=== PATIENT | male | born 1940 | race Caucasian/White ===

== ENCOUNTER 2017-12-24 06:01 | Inpatient (IN) | payer OTHER ==
[~2017-12-24 06:01] MED LIST: Acetaminophen 500 MG Tab PO ONE; Scopolamine 1.5 MG Transdermal Patch TOP SCH
[2017-12-24] MEDS ORDERED: Lactated Ringers 1,000 ML IV SCH ×2 (06:30→10:30)
[2017-12-24] MEDS ORDERED: Povidone-Iodine 10% Soln 118.25 ML Bottle ONE (06:46)
[2017-12-24] MEDS ORDERED: Gentamicin 40 MG/ML 2 ML Vial ONE (06:46)
[2017-12-24] MEDS ORDERED: fentaNYL 100 MCG/2 ML SDV ONE (07:23)
[2017-12-24] MEDS ORDERED: Midazolam 1 MG/ML 2 ML SDV ONE (07:23)
[2017-12-24] MEDS ORDERED: Bupivacaine 0.75%/D5W 2 ML Amp ONE (07:23)
[2017-12-24] MEDS ORDERED: Propofol 200 MG/20 ML SDV ONE ×4 (07:23→10:04)
[2017-12-24] MEDS ORDERED: ceFAZolin 2 GM in Premix Bag 1 BAG IV ONE (07:30)
[2017-12-24] MEDS ORDERED: Tranexamic Acid 3,000 MG, Sodium Chloride 0.9% 100 ML TOP SCH ×2 (07:45)
[2017-12-24] MEDS ORDERED: Ropivacaine 49.25 ML, Ketorolac 30 MG, EPINEPHrine 0.5 MG, cloNIDine 80 MCG, Sodium Chl... INJECT ONE ×5 (07:45)
[2017-12-24] MEDS ORDERED: Lactated Ringers 1,000 ML ONE (08:58)
[2017-12-24] MEDS: [UNRECOGNIZED DRUG - OTHER] INJECT ONE ×8 (09:03→09:05)
[2017-12-24] MEDS: ROPIVACAINE INJECT ONE ×8 (09:03→09:05)
[2017-12-24] MEDS: EPINEPHRINE INJECT ONE ×8 (09:03→09:05)
[2017-12-24] MEDS: CLONIDINE INJECT ONE ×8 (09:03→09:05)
[2017-12-24] MEDS ORDERED: Sennosides 8.6 MG Tab PO PRN (10:17)
[2017-12-24] MEDS ORDERED: Naloxone 0.4 MG/ML SDV IVPUSH PRN (10:17)
[2017-12-24] MEDS ORDERED: diphenhydrAMINE 50 MG/ML SDV IVPUSH PRN (10:17)
[2017-12-24] MEDS ORDERED: Morphine 2 MG/ML Syringe IVPUSH PRN (10:17)
[2017-12-24] MEDS ORDERED: Magnesium Hydroxide 400 MG/5 ML Susp 30 ML Cup PO PRN (10:17)
[2017-12-24] MEDS ORDERED: Zolpidem 5 MG Tab PO PRN (10:17)
[2017-12-24] MEDS ORDERED: Aluminum Hydroxide/Magnesium Hydroxide/Simethicone Susp 30 ML Cup PO PRN (10:17)
[2017-12-24] MEDS ORDERED: Ondansetron 4 MG/2 ML SDV IVPUSH PRN (10:17)
[2017-12-24] MEDS ORDERED: Bisacodyl 5 MG Tab PO PRN (10:17)
[2017-12-24] MEDS ORDERED: Docusate Sodium 100 MG Cap PO PRN (10:17)
[2017-12-24] MEDS ORDERED: Triamcinolone Acetonide 0.1% Crm 15 GM Tube TOP PRN (10:25)
[2017-12-24] MEDS ORDERED: Lactulose Soln 10 GM/15 ML 15 ML UD Cup PO PRN (10:25)
[2017-12-24] MEDS ORDERED: Allopurinol 100 MG Tab PO SCH (10:30)
[2017-12-24] MEDS ORDERED: fentaNYL 100 MCG/2 ML SDV IVPUSH ONE (10:58)
[2017-12-24] MEDS ORDERED: hydrOXYzine HCl 100 MG/2 ML SDV IM ONE (10:59)
--- NOTE | 2017-12-24 11:09 | CR ---
Knee 1V or 2V Rt CLINICAL HISTORY: Status post total knee arthroplasty FINDINGS: Patient is status post recent 3 component total knee arthroplasty. Components appear well s eated. There is intra-articular and subcutaneous air and fluid Impression: Status post recent total knee arthroplasty
[2017-12-24] MEDS: oxyCODONE 5 MG Tab PO PRN ×2 (13:35→18:15)
[2017-12-24] MEDS ORDERED: PROTEASE PO SCH (14:00)
[2017-12-24] MEDS ORDERED: AMYLASE PO SCH (14:00)
[2017-12-24] MEDS ORDERED: LIPASE PO SCH (14:00)
--- NOTE | 2017-12-24 14:35 | OR ---
DATE OF PROCEDURE: 12/24/2017 PREOPERATIVE DIAGNOSIS: Right knee primary osteoarthritis. POSTOPERATIVE DIAGNOSIS: Right knee primary osteoarthritis. PROCEDURE PERFORMED: Right knee total knee arthroplasty. ANESTHESIA: Spinal plus conscious sedation. FLUIDS: Lactated Ringer solution. ESTIMATED BLOOD LOSS: 150 mL. COMPLICATIONS: None. SPECIMEN: None. DISCHARGE DISPOSITION: Stable to PACU. INSTRUMENTATION: DePuy Attune size 8 cemented femur, size 8 cemented tibial baseplate, 41 mm polyethylene patella, and size 8 5-mm polyethylene tibial insert. INDICATION FOR THE PROCEDURE: The patient was seen preoperatively in the clinic. He had failed nonoperative treatment. Preoperative imaging confirmed the above-mentioned diagnosis. Risks and benefits of the procedure were explained to the patient. Informed consent was obtained. DESCRIPTION OF PROCEDURE: The patient was seen preoperatively by myself and the Anesthesia staff in the preoperative holding area, where the operative site was marked. He was brought to the operative suite by Anesthesia staff, where spinal sedation plus conscious sedation was administered. All extremities were found to be well padded. A sterile Enamorado catheter was placed. A well-padded tourniquet was placed on the right thigh. The right lower extremity was prepped and draped in a sterile manner. Time-out was called identifying the correct patient, the correct procedure, the correct site, and that antibiotics had been begun within appropriate period of time. The right lower extremity was exsanguinated. Tourniquet was raised to 300 mmHg and let down during cementing at 61 minutes. A midline incision was made 4.5 fingerbreadths proximal to the patella, down to the level of the tibial tubercle. A medial parapatellar arthrotomy was then made. Bleeding was controlled with Bovie electrocautery. The infrapatellar fat pad was removed with the Bovie. Full synovectomy was performed with the Bovie. The proximal medial tibia was exposed. The anterior portion of the medial and lateral meniscus were removed as well as the anterior cruciate ligament. The patella was everted using a towel clamp and then the knee was flexed. Two cuts were then made freehand on the patella, and then the knee were extended. A 41 trial was then drilled in place. We then flexed the knee and reamed the distal femur and then inserted an intramedullary guide. I pinned the guide in place, removed the intramedullary portion of the guide, and then made my distal femoral cut. We then removed the cutting guide and then hyperflexed the knee and used a posterior condylar guide which measured an 8. I drilled 2 pins in and then placed my chamfer block and then protecting the collaterals with sharp Homans, made my anterior-posterior chamfer cuts. I then removed my cutting block and pins and removed any extra bone with osteotomes. I then spent quite a bit of time removing the remainder of the menisci medially and laterally that I could get to and then anteriorized the tibia using a blunt Hohmann. Then, using an extramedullary tibial guide in line with the tibial spine down to the second metatarsal, pinned this in place and made my proximal tibial cut while protecting the collaterals with sharp Homans. I then removed my proximal tibial cut and then did a little bit of clean-up with a saw. I then placed a baseplate, then reamed and tamped. Just prior to that, I did use a laminar blacktop spreader medially and laterally and then removed posterior condylar osteophytes with a curved osteotome and the remainder of the menisci. After I placed the tibial baseplate, I inserted the femoral trial and then placed a size 8 5- mm polyethylene trial. This was a little bit tight, so I removed all of my trial components and then cut another 2 mm off the tibia and then reinserted all my components. This provided excellent stability throughout range of motion. We then removed all of our trial components and then copiously irrigated with saline. I then cemented my final components in place with a size 8 5-mm polyethylene trial in place and then let the cement dry in extension and slight internal rotation. After the cement dried, we then removed the polyethylene base trial from the tibial baseplate and removed cement and irrigated with saline. After removing the extra cement, I did insert a final size 8 5-mm polyethylene tibial baseplate insert, and then this provided excellent range of motion and stability. I then irrigated again and then closed my parapatellar arthrotomy with two #5 Ethibonds and two #1 STRATAFIX. I then closed the subcutaneous layer with a #2 STRATAFIX, followed by skin tristian, followed by Betadine-soaked Adaptic sponges and an Joby wrap. The patient was then transferred to his hospital bed and taken to the PACU in a stable condition. Dheeraj John DO /[id number]
[2017-12-24] MEDS: Amylase/Lipase/Protease 12,000 Unit Cap.CR PO SCH ×2 (14:59→21:39)
--- NOTE | 2017-12-24 15:49 | PCM.PN ---
- General Info Date of Service: 12/24/17 Functional Status: Reports: Pain Controlled, Tolerating Diet, Incentive Spirometry - Review of Systems General: Reports: No Symptoms HEENT: Reports: No Symptoms Pulmonary: Reports: No Symptoms Cardiovascular: Reports: No Symptoms Gastrointestinal: Reports: No Symptoms Genitourinary: Reports: No Symptoms Musculoskeletal: Reports: Joint Pain, Joint Swelling Skin: Reports: No Symptoms Neurological: Reports: No Symptoms Psychiatric: Reports: No Symptoms - Patient Data Vitals - Most Recent: Last Vital Signs Temp 99.0 F 12/24/17 14:33 Pulse 50 L 12/24/17 14:33 Resp 16 12/24/17 14:33 BP 124/40 L 12/24/17 14:33 Pulse Ox 100 12/24/17 14:33 Weight - Most Recent: 235 lb I&O - Last 24 Hours: Intake & Output 12/24/17 12/24/17 12/24/17 06:59 14:59 22:59 Output Total 950 Balance -950 Lab Results Last 24 Hours: Laboratory Results - last 24 hr 12/24/17 12/24/17 Range/Units 06:00 07:20 PT 12.1 H (9.5-12.0) sec INR 1.13 (0.80-1.20) Blood Type O POSITIVE Gel Antibody Screen Negative Med Orders - Current: Current Medications Al Hydroxide/Mg Hydroxide (Mag-Al Plus) 30 ml PO Q4H PRN PRN Reason: Constipation Allopurinol (Zyloprim) 100 mg PO ASDIRECTED [facility] Amlodipine Besylate (Norvasc) 10 mg PO DAILY [facility] Lipase/Protease/Amylase (Creon Dr 12,000 Units) 2 cap PO TID [facility] Last Admin: 12/24/17 14:59 Dose: 2 cap Bisacodyl (Dulcolax) 10 mg PO DAILY PRN PRN Reason: Constipation Bumetanide (Bumex) 1 mg PO DAILY [facility] Diphenhydramine HCl (Benadryl) 25 mg IVPUSH Q4H PRN PRN Reason: Itching Docusate Sodium (Colace) 100 mg PO BID PRN PRN Reason: Constipation Enoxaparin Sodium (Lovenox) 40 mg SUBCUT DAILY [facility] Lactated Ringer's (Ringers, Lactated) 1,000 mls @ 100 mls/hr IV ASDIRECTED [facility] Insulin Detemir (Levemir) 25 unit SUBCUT BID [facility] Lactulose (Chronulac) 10 gm PO QID PRN PRN Reason: Gas Magnesium Hydroxide (Milk Of Magnesia) 30 ml PO BID PRN PRN Reason: Constipation Metoprolol Tartrate (Lopressor) 12.5 mg PO BID [facility] Morphine Sulfate (Morphine) 2 mg IVPUSH Q2H PRN PRN Reason: Pain Last Admin: 12/24/17 12:25 Dose: 2 mg Multi-Ingred Cream/Lotion/Oil/Oint (Kerodex 71 Crm) 60 gm TOP DAILY PRN PRN Reason: Inflammation Naloxone HCl (Narcan) 0.1 mg IVPUSH ONETIME PRN PRN Reason: Oversedation Ondansetron HCl (Zofran) 8 mg IVPUSH Q4H PRN PRN Reason: Nausea/Vomiting Oxycodone HCl (Oxycodone) 10 mg PO Q4H PRN PRN Reason: Pain Last Admin: 12/24/17 13:35 Dose: 10 mg Rifaximin (Xifaxan) 550 mg PO BID [facility] Scopolamine (Transderm-Scop) 1.5 mg TOP Q72H [facility] Stop: 12/26/17 05:00 Last Admin: 12/24/17 06:55 Dose: 1.5 mg Senna (Senna) 8.6 mg PO BID PRN PRN Reason: Constipation Sodium Chloride (Saline Flush) 10 ml FLUSH DAILY [facility] Spironolactone (Aldactone) 12.5 mg PO BID [facility] Tacrolimus (Prograf) 0.5 mg PO BID [facility] Torsemide (Demadex) 20 mg PO DAILY [facility] Tramadol HCl (Ultram) 100 mg PO Q6H PRN PRN Reason: Pain Triamcinolone Acetonide (Triamcinolone Acetonide 0.1% Crm) 0 gm TOP BID PRN PRN Reason: Rash Warfarin Sodium (Coumadin) 2 mg PO DAILY@1300 [facility] Zolpidem Tartrate (Ambien) 5 mg PO BEDTIME PRN PRN Reason: Sleep Discontinued Medications Acetaminophen (Tylenol Extra Strength) 1,000 mg PO ONETIME ONE Stop: 12/24/17 06:01 Last Admin: 12/24/17 06:55 Dose: 1,000 mg Bupivacaine HCl/Dextrose (Marcaine 0.75% Spinal) Confirm Administered Dose 2 ml .ROUTE .STK-MED ONE Stop: 12/24/17 07:24 Tranexamic Acid 3,000 mg/ (Sodium Chloride 100 ml) 0 mg TOP ASDIRECTED [facility] Stop: 12/24/17 07:46 Last Admin: 12/24/17 09:00 Dose: 100 bag Ropivacaine 49.25 ml/Epinephrine HCl 0.5 mg/Clonidine HCl 80 mcg/ Sodium Chloride 48.45 ml 0 ml INJECT ONETIME ONE Stop: 12/24/17 07:46 Last Admin: 12/24/17 09:05 Dose: 90 ml Fentanyl (Sublimaze) Confirm Administered Dose 100 mcg .ROUTE .STK-MED ONE Stop: 12/24/17 07:24 Fentanyl (Sublimaze) 50 mcg IVPUSH ONETIME ONE Stop: 12/24/17 10:59 Last Admin: 12/24/17 11:03 Dose: 50 mcg Gentamicin Sulfate (Gentamicin) Confirm Administered Dose 240 mg .ROUTE .STK- MED ONE Stop: 12/24/17 06:47 Last Admin: 12/24/17 09:08 Dose: 240 mg Hydroxyzine HCl (Vistaril) 50 mg IM ONETIME ONE Stop: 12/24/17 11:00 Last Admin: 12/24/17 11:08 Dose: 50 mg Cefazolin Sodium/Dextrose 2 gm (/ Premix) 50 mls @ 100 mls/hr IV ONETIME ONE Stop: 12/24/17 07:59 Last Admin: 12/24/17 08:58 Dose: 100 mls/hr Lactated Ringer's (Ringers, Lactated) 1,000 mls @ 100 mls/hr IV ASDIRECTED [facility] Last Admin: 12/24/17 06:56 Dose: 100 mls/hr Lactated Ringer's (Ringers, Lactated) Confirm Administered Dose 1,000 mls @ as directed .ROUTE .STK-MED ONE Stop: 12/24/17 08:59 Midazolam HCl (Versed 1 Mg/Ml) Confirm Administered Dose 2 mg .ROUTE .STK-MED ONE Stop: 12/24/17 07:24 Povidone Iodine (Betadine 10% Soln) Confirm Administered Dose 1 ml .ROUTE .STK- MED ONE Stop: 12/24/17 06:47 Last Admin: 12/24/17 09:08 Dose: 118 ml Propofol (Diprivan 20 Ml) Confirm Administered Dose 200 mg .ROUTE .STK-MED ONE Stop: 12/24/17 07:24 Propofol (Diprivan 20 Ml) Confirm Administered Dose 200 mg .ROUTE .STK-MED ONE Stop: 12/24/17 08:55 Propofol (Diprivan 20 Ml) Confirm Administered Dose 200 mg .ROUTE .STK-MED ONE Stop: 12/24/17 09:39 Propofol (Diprivan 20 Ml) Confirm Administered Dose 200 mg .ROUTE .STK-MED ONE Stop: 12/24/17 10:05 - Exam General: Alert, Oriented, Cooperative, Mild Distress HEENT: Pupils Equal, Mucous Membr. Moist/[place] Neck: Supple, Trachea Midline Lungs: Normal Respiratory Effort Extremities: Joint Swelling, Limited Range of Motion Skin: Warm, Dry, Intact Wound/Incisions: Healing Well, Dressing Dry and Intact, No Drainage Neurological: No New Focal Deficit Psy/Mental Status: Alert, Normal Affect, Normal Mood - Problem List & Annotations (1) Primary osteoarthritis of both knees SNOMED Code(s): 553045414, [id number], [id number] Code(s): M17.0 - BILATERAL PRIMARY OSTEOARTHRITIS OF KNEE Status: Acute Current Visit: No - Problem List Review Problem List Initiated/Reviewed/Updated: Yes - My Orders Last 24 Hours: My Active Orders 12/24/17 06:00 Scopolamine [Transderm-Scop] 1.5 mg TOP Q72H 12/24/17 10:17 Patient Status [ADT] Routine Ambulate [RC] ASDIRECTED Head of Bed Elevation [RC] CONTINUOUS Intake and Output [RC] QSHIFT May Shower [RC] ASDIRECTED Neurovascular Check [RC] Q4HR Pneumonia Education [RC] UPON RT Incentive Spirometry [RC] Q1HWA Turn, Cough, Deep Breathe [RC] Q1HWA Up to Chair [RC] TIDMEALS Vital Signs [RC] PER UNIT ROUTINE Wound Care [RC] Q12H Consult to Physician [CONS] Routine OT Evaluation and Treatment [CONS] Routine PT Evaluation and Treatment [CONS] Routine Respiratory Care Assess and Treatment [CONS] Routine Alum Hydrox/Mag Hydrox/Simeth [Mag-Al Plus] 30 ml PO Q4H PRN Bisacodyl [Dulcolax] 10 mg PO DAILY PRN Docusate Sodium [Colace] 100 mg PO BID PRN Magnesium Hydroxide [Milk of Magnesia] 30 ml PO BID PRN Morphine 2 mg IVPUSH Q2H PRN Naloxone [Narcan] 0.1 mg IVPUSH ONETIME PRN Ondansetron [Zofran] 8 mg IVPUSH Q4H PRN Sennosides [Senna] 8.6 mg PO BID PRN Zolpidem [Ambien] 5 mg PO BEDTIME PRN diphenhydrAMINE [Benadryl] 25 mg IVPUSH Q4H PRN oxyCODONE 10 mg PO Q4H PRN traMADol [Ultram] 100 mg PO Q6H PRN DVT/VTE Prophylaxis Reflex [OM.PC] Routine Sequential Compression Device [OM.PC] Per Unit Routine Weight bearing status [OM.PC] Routine Resuscitation Status Routine 12/24/17 10:18 Antiembolic Devices [RC] .Routine Notify Provider Consults [RC] ASDIRECTED VTE/DVT Education [RC] Click to Edit 12/24/17 10:25 Hydrophilic Cream [Kerodex 71 Crm] 60 gm TOP DAILY PRN Lactulose [Chronulac] 10 gm PO QID PRN Triamcinolone Acetonide [Triamcinolone Acetonide 0.1% Crm] 0 gm TOP BID PRN 12/24/17 10:28 Accu Check [Blood Glucose Check, Bedside] [RC] QIDACANDBED 12/24/17 10:30 Allopurinol [Zyloprim] 100 mg PO ASDIRECTED Lactated Ringers [Ringers, Lactated] 1,000 ml IV ASDIRECTED Convert IV to Saline Lock [OM.PC] PER UNIT ROUTINE Ice Therapy [OM.PC] PER UNIT ROUTINE Oral Care [OM.PC] BID 12/24/17 14:00 Amylase/Lipase/Protease [Creon DR 12,000 Units] 2 cap PO TID 12/24/17 21:00 Insulin Detemir [Levemir] 25 unit SUBCUT BID Metoprolol Tartrate [Lopressor] 12.5 mg PO BID Rifaximin [Xifaxan] 550 mg PO BID Spironolactone [Aldactone] 12.5 mg PO BID Tacrolimus [Prograf] 0.5 mg PO BID 12/24/17 Lunch Advance Diet Instructions [DIET] 12/25/17 06:00 Urinary Catheter Removal [RC] Per Unit Routine CBC WITH AUTO DIFF [HEME] DAILY COMPREHENSIVE METABOLIC PN,CMP [CHEM] DAILY 12/25/17 09:00 Bumetanide [Bumex] 1 mg PO DAILY Enoxaparin [Lovenox] 40 mg SUBCUT DAILY Sodium Chloride 0.9% [Saline Flush] 10 ml FLUSH DAILY Torsemide [Demadex] 20 mg PO DAILY amLODIPine [Norvasc] 10 mg PO DAILY 12/25/17 10:30 Oral Care [OM.PC] BID 12/25/17 13:00 Warfarin [Coumadin] 2 mg PO DAILY@1300 12/26/17 06:00 CBC WITH AUTO DIFF [HEME] DAILY COMPREHENSIVE METABOLIC PN,CMP [CHEM] DAILY 12/26/17 10:30 Oral Care [OM.PC] BID 12/27/17 06:00 CBC WITH AUTO DIFF [HEME] DAILY COMPREHENSIVE METABOLIC PN,CMP [CHEM] DAILY 12/27/17 10:30 Oral Care [OM.PC] BID 12/28/17 10:30 Oral Care [OM.PC] BID 12/29/17 10:30 Oral Care [OM.PC] BID 12/30/17 10:30 Oral Care [OM.PC] BID 12/31/17 10:30 Oral Care [OM.PC] BID 01/01/18 10:30 Oral Care [OM.PC] BID 01/02/18 10:30 Oral Care [OM.PC] BID - Plan Plan:: assessment:postoperative day 0 right total knee arthroplasty Plan:PT/OT/Pain control We'll start Lovenox 40 mg subcutaneous tomorrow morning. We restarted many of his meds today. the nursing supervisors currently reconciling medications and verifying what we have so far. Physical therapy is currently with the patient. Range of motion is -3-85 flexion. Pain is controlled at 4 out of 10.
[2017-12-24] MEDS: Insulin Aspart 100 Units/ML 3 ML Pen SUBCUT SCH (17:20)
--- NOTE | 2017-12-24 19:12 | PCM.PN ---
- General Info Date of Service: 12/24/17 Subjective Update: Mele is well known to me for many years. He has had pain in other knee as well. He is a type 2 diabetic and is on Insulin. - Review of Systems HEENT: Reports: No Symptoms Pulmonary: Reports: No Symptoms Cardiovascular: Reports: No Symptoms Gastrointestinal: Reports: No Symptoms Genitourinary: Reports: No Symptoms Musculoskeletal: Reports: Joint Pain, Joint Swelling Psychiatric: Reports: No Symptoms - Patient Data Vitals - Most Recent: Last Vital Signs Temp 99.0 F 12/24/17 14:33 Pulse 50 L 12/24/17 14:33 Resp 16 12/24/17 14:33 BP 124/40 L 12/24/17 14:33 Pulse Ox 100 12/24/17 14:33 Weight - Most Recent: 235 lb I&O - Last 24 Hours: Intake & Output 12/24/17 12/24/17 12/24/17 06:59 14:59 22:59 Intake Total 360 Output Total 950 300 Balance -950 60 Lab Results Last 24 Hours: Laboratory Results - last 24 hr 12/24/17 12/24/17 Range/Units 06:00 07:20 PT 12.1 H (9.5-12.0) sec INR 1.13 (0.80-1.20) Blood Type O POSITIVE Gel Antibody Screen Negative Med Orders - Current: Current Medications Al Hydroxide/Mg Hydroxide (Mag-Al Plus) 30 ml PO Q4H PRN PRN Reason: Constipation Allopurinol (Zyloprim) 100 mg PO Q48H [facility] Amlodipine Besylate (Norvasc) 10 mg PO DAILY [facility] Lipase/Protease/Amylase (Creon Dr 12,000 Units) 2 cap PO TID [facility] Last Admin: 12/24/17 14:59 Dose: 2 cap Bisacodyl (Dulcolax) 10 mg PO DAILY PRN PRN Reason: Constipation Bumetanide (Bumex) 1 mg PO DAILY [facility] Diphenhydramine HCl (Benadryl) 25 mg IVPUSH Q4H PRN PRN Reason: Itching Docusate Sodium (Colace) 100 mg PO BID PRN PRN Reason: Constipation Enoxaparin Sodium (Lovenox) 40 mg SUBCUT DAILY [facility] Lactated Ringer's (Ringers, Lactated) 1,000 mls @ 100 mls/hr IV ASDIRECTED [facility] Insulin Aspart (Novolog) 25 unit SUBCUT BID@1200,1730 [facility] Last Admin: 12/24/17 17:20 Dose: 25 units Insulin Detemir (Levemir) 25 unit SUBCUT BID [facility] Lactulose (Chronulac) 10 gm PO QID PRN PRN Reason: Gas Magnesium Hydroxide (Milk Of Magnesia) 30 ml PO BID PRN PRN Reason: Constipation Metoprolol Tartrate (Lopressor) 12.5 mg PO BID [facility] Morphine Sulfate (Morphine) 2 mg IVPUSH Q2H PRN PRN Reason: Pain Last Admin: 12/24/17 12:25 Dose: 2 mg Multi-Ingred Cream/Lotion/Oil/Oint (Kerodex 71 Crm) 60 gm TOP DAILY PRN PRN Reason: Inflammation Naloxone HCl (Narcan) 0.1 mg IVPUSH ONETIME PRN PRN Reason: Oversedation Ondansetron HCl (Zofran) 8 mg IVPUSH Q4H PRN PRN Reason: Nausea/Vomiting Oxycodone HCl (Oxycodone) 10 mg PO Q4H PRN PRN Reason: Pain Last Admin: 12/24/17 18:15 Dose: 10 mg Pantoprazole Sodium (Protonix) 40 mg PO ACBREAKFAST [facility] Rifaximin (Xifaxan) 550 mg PO BID [facility] Scopolamine (Transderm-Scop) 1.5 mg TOP Q72H [facility] Stop: 12/26/17 05:00 Last Admin: 12/24/17 06:55 Dose: 1.5 mg Senna (Senna) 8.6 mg PO BID PRN PRN Reason: Constipation Sodium Chloride (Saline Flush) 10 ml FLUSH DAILY [facility] Spironolactone (Aldactone) 12.5 mg PO BID [facility] Tacrolimus (Prograf) 0.5 mg PO BID [facility] Torsemide (Demadex) 20 mg PO DAILY [facility] Tramadol HCl (Ultram) 100 mg PO Q6H PRN PRN Reason: Pain Triamcinolone Acetonide (Triamcinolone Acetonide 0.1% Crm) 0 gm TOP BID PRN PRN Reason: Rash Warfarin Sodium (Coumadin) 2 mg PO DAILY@1300 [facility] Zolpidem Tartrate (Ambien) 5 mg PO BEDTIME PRN PRN Reason: Sleep Discontinued Medications Acetaminophen (Tylenol Extra Strength) 1,000 mg PO ONETIME ONE Stop: 12/24/17 06:01 Last Admin: 12/24/17 06:55 Dose: 1,000 mg Allopurinol (Zyloprim) 100 mg PO ASDIRECTED [facility] Bupivacaine HCl/Dextrose (Marcaine 0.75% Spinal) Confirm Administered Dose 2 ml .ROUTE .STK-MED ONE Stop: 12/24/17 07:24 Tranexamic Acid 3,000 mg/ (Sodium Chloride 100 ml) 0 mg TOP ASDIRECTED [facility] Stop: 12/24/17 07:46 Last Admin: 12/24/17 09:00 Dose: 100 bag Ropivacaine 49.25 ml/Epinephrine HCl 0.5 mg/Clonidine HCl 80 mcg/ Sodium Chloride 48.45 ml 0 ml INJECT ONETIME ONE Stop: 12/24/17 07:46 Last Admin: 12/24/17 09:05 Dose: 90 ml Fentanyl (Sublimaze) Confirm Administered Dose 100 mcg .ROUTE .STK-MED ONE Stop: 12/24/17 07:24 Fentanyl (Sublimaze) 50 mcg IVPUSH ONETIME ONE Stop: 12/24/17 10:59 Last Admin: 12/24/17 11:03 Dose: 50 mcg Gentamicin Sulfate (Gentamicin) Confirm Administered Dose 240 mg .ROUTE .STK- MED ONE Stop: 12/24/17 06:47 Last Admin: 12/24/17 09:08 Dose: 240 mg Hydroxyzine HCl (Vistaril) 50 mg IM ONETIME ONE Stop: 12/24/17 11:00 Last Admin: 12/24/17 11:08 Dose: 50 mg Cefazolin Sodium/Dextrose 2 gm (/ Premix) 50 mls @ 100 mls/hr IV ONETIME ONE Stop: 12/24/17 07:59 Last Admin: 12/24/17 08:58 Dose: 100 mls/hr Lactated Ringer's (Ringers, Lactated) 1,000 mls @ 100 mls/hr IV ASDIRECTED [facility] Last Admin: 12/24/17 06:56 Dose: 100 mls/hr Lactated Ringer's (Ringers, Lactated) Confirm Administered Dose 1,000 mls @ as directed .ROUTE .STK-MED ONE Stop: 12/24/17 08:59 Midazolam HCl (Versed 1 Mg/Ml) Confirm Administered Dose 2 mg .ROUTE .STK-MED ONE Stop: 12/24/17 07:24 Povidone Iodine (Betadine 10% Soln) Confirm Administered Dose 1 ml .ROUTE .STK- MED ONE Stop: 12/24/17 06:47 Last Admin: 12/24/17 09:08 Dose: 118 ml Propofol (Diprivan 20 Ml) Confirm Administered Dose 200 mg .ROUTE .STK-MED ONE Stop: 12/24/17 07:24 Propofol (Diprivan 20 Ml) Confirm Administered Dose 200 mg .ROUTE .STK-MED ONE Stop: 12/24/17 08:55 Propofol (Diprivan 20 Ml) Confirm Administered Dose 200 mg .ROUTE .STK-MED ONE Stop: 12/24/17 09:39 Propofol (Diprivan 20 Ml) Confirm Administered Dose 200 mg .ROUTE .STK-MED ONE Stop: 12/24/17 10:05 - Exam General: Alert, Oriented HEENT: Pupils Equal, Pupils Reactive, EOMI, Mucous Membr. Moist/[place] Neck: Supple Lungs: Clear to Auscultation, Normal Respiratory Effort Cardiovascular: Irregular Rhythm GI/Abdominal Exam: Normal Bowel Sounds, Soft, Non-Tender, No Organomegaly, No Distention, No Abnormal Bruit, No Mass, Pelvis Stable Peripheral Pulses: 1+: Radial (L), Radial (R) Psy/Mental Status: Alert, Normal Mood - Problem List Review Problem List Initiated/Reviewed/Updated: Yes - My Orders Last 24 Hours: My Active Orders 12/24/17 17:30 Insulin Aspart [NovoLOG] 25 unit SUBCUT BID@1200,1730 12/24/17 21:00 GLUCOSE POC LAB TO COLLECT [POC] QIDACANDBED 12/25/17 07:30 GLUCOSE POC LAB TO COLLECT [POC] QIDACANDBED Pantoprazole [ProTONIX] 40 mg PO ACBREAKFAST 12/25/17 11:30 GLUCOSE POC LAB TO COLLECT [POC] QIDACANDBED 12/25/17 16:30 GLUCOSE POC LAB TO COLLECT [POC] QIDACANDBED 12/25/17 21:00 GLUCOSE POC LAB TO COLLECT [POC] QIDACANDBED 12/26/17 07:30 GLUCOSE POC LAB TO COLLECT [POC] QIDACANDBED 12/26/17 11:30 GLUCOSE POC LAB TO COLLECT [POC] QIDACANDBED 12/26/17 16:30 GLUCOSE POC LAB TO COLLECT [POC] QIDACANDBED 12/26/17 21:00 GLUCOSE POC LAB TO COLLECT [POC] QIDACANDBED 12/27/17 07:30 GLUCOSE POC LAB TO COLLECT [POC] QIDACANDBED 12/27/17 11:30 GLUCOSE POC LAB TO COLLECT [POC] QIDACANDBED - Assessment Assessment:: #1. Osteoarthritis of knees: S/P surgery #2. DM II. Will watch Blood surger and adjust insulin as needed. #3. CRF: Will follow as needed. #4. S/P Liver transplant #5. Atrial Fib.: Chronic and stable. #6. HTN: Blood pressure post op is good control. - Plan Plan:: assessment:postoperative day 0 right total knee arthroplasty Plan:PT/OT/Pain control We'll start Lovenox 40 mg subcutaneous tomorrow morning. We restarted many of his meds today. the nursing supervisors currently reconciling medications and verifying what we have so far. Physical therapy is currently with the patient. Range of motion is -3-85 flexion. Pain is controlled at 4 out of 10.
[2017-12-24] MEDS ORDERED: [UNRECOGNIZED DRUG - OTHER] SUBCUT SCH (21:00)
[2017-12-24] MEDS ORDERED: INSULIN GLARG HUMAN REC ANALOG SUBCUT SCH (21:00)
[2017-12-24] MEDS: Spironolactone 25 MG Tab PO SCH (21:39)
[2017-12-24] MEDS: Tacrolimus 0.5 MG Cap PO SCH (21:39)
[2017-12-24] MEDS: Rifaximin 550 MG Tab PO SCH (21:39)
[2017-12-24] MEDS: Insulin Detemir 100 Units/ML 3 ML Pen SUBCUT SCH (21:40)
[2017-12-24] MEDS: Metoprolol Tartrate 25 MG Tab PO SCH (21:42)
--- NOTE | 2017-12-25 07:56 | PCM.PN ---
- General Info Date of Service: 12/25/17 Subjective Update: He states he is feeling good. Had a BM this morning and walked. Functional Status: Reports: Pain Controlled - Review of Systems General: Reports: Fever HEENT: Reports: No Symptoms Pulmonary: Reports: No Symptoms Cardiovascular: Reports: No Symptoms Gastrointestinal: Reports: No Symptoms Genitourinary: Reports: No Symptoms Musculoskeletal: Reports: Joint Pain Neurological: Reports: No Symptoms Psychiatric: Reports: No Symptoms - Patient Data Vitals - Most Recent: Last Vital Signs Temp 100.3 F 12/25/17 07:00 Pulse 81 12/25/17 07:00 Resp 18 12/25/17 07:00 BP 184/53 H 12/25/17 07:00 Pulse Ox 97 12/25/17 07:00 Weight - Most Recent: 235 lb I&O - Last 24 Hours: Intake & Output 12/24/17 12/25/17 12/25/17 22:59 06:59 14:59 Intake Total 360 Output Total 300 1150 Balance 60 -1150 Lab Results Last 24 Hours: Laboratory Results - last 24 hr 12/24/17 12/25/17 12/25/17 Range/Units 07:20 05:35 05:35 WBC 13.1 H (4.5-11.0) K/uL RBC 3.97 L (4.30-5.90) M/uL Hgb 13.4 (12.0-15.0) g/dL Hct 40.4 (40.0-54.0) % MCV 102 H (80-98) fL MCH 34 H (27-31) pg MCHC 33 (32-36) % Plt Count 396 (150-400) K/uL Neut % (Auto) 69 H (36-66) % Lymph % (Auto) 11 L (24-44) % [place] % (Auto) 20 H (2-6) % Eos % (Auto) 1 L (2-4) % Baso % (Auto) 0 (0-1) % PT 12.1 H (9.5-12.0) sec INR 1.13 (0.80-1.20) Sodium 142 (140-148) mmol/L Potassium 4.7 (3.6-5.2) mmol/L Chloride 110 H (100-108) mmol/L Carbon Dioxide 20 L (21-32) mmol/L Anion Gap 16.7 H (5.0-14.0) mmol/L BUN 48 H (7-18) mg/dL Creatinine 3.4 H (0.8-1.3) mg/dL Est Cr Clr Drug Dosing 19.69 mL/min Estimated GFR (MDRD) 18 L (>60) Glucose 148 H (74-106) mg/dL Calcium 9.3 (8.5-10.1) mg/dL Total Bilirubin 1.9 H D (0.2-1.0) mg/dL AST 44 H D (15-37) U/L ALT 36 (12-78) U/L Alkaline Phosphatase 203 H (46-116) U/L Total Protein 7.2 (6.4-8.2) g/dL Albumin 3.0 L (3.4-5.0) g/dL Globulin 4.2 H (2.3-3.5) g/dL Albumin/Globulin Ratio 0.7 L (1.2-2.2) Med Orders - Current: Current Medications Al Hydroxide/Mg Hydroxide (Mag-Al Plus) 30 ml PO Q4H PRN PRN Reason: Constipation Allopurinol (Zyloprim) 100 mg PO Q48H [facility] Amlodipine Besylate (Norvasc) 10 mg PO DAILY [facility] Lipase/Protease/Amylase (Creon Dr 12,000 Units) 2 cap PO TID [facility] Last Admin: 12/24/17 21:39 Dose: 2 cap Bisacodyl (Dulcolax) 10 mg PO DAILY PRN PRN Reason: Constipation Bumetanide (Bumex) 1 mg PO DAILY [facility] Diphenhydramine HCl (Benadryl) 25 mg IVPUSH Q4H PRN PRN Reason: Itching Docusate Sodium (Colace) 100 mg PO BID PRN PRN Reason: Constipation Enoxaparin Sodium (Lovenox) 40 mg SUBCUT DAILY [facility] [place] Lactated Ringer's (Ringers, Lactated) 1,000 mls @ 100 mls/hr IV ASDIRECTED [facility] Insulin Aspart (Novolog) 25 unit SUBCUT BID@1200,1730 [facility] Last Admin: 12/24/17 17:20 Dose: 25 units Insulin Detemir (Levemir) 25 unit SUBCUT BID [facility] [place] Last Admin: 12/24/17 21:40 Dose: 25 units Lactulose (Chronulac) 10 gm PO QID PRN PRN Reason: Gas Magnesium Hydroxide (Milk Of Magnesia) 30 ml PO BID PRN PRN Reason: Constipation Metoprolol Tartrate (Lopressor) 12.5 mg PO BID [facility] [place] Last Admin: 12/24/17 21:42 Dose: 12.5 mg Morphine Sulfate (Morphine) 2 mg IVPUSH Q2H PRN PRN Reason: Pain Last Admin: 12/24/17 12:25 Dose: 2 mg Multi-Ingred Cream/Lotion/Oil/Oint (Kerodex 71 Crm) 60 gm TOP DAILY PRN PRN Reason: Inflammation Naloxone HCl (Narcan) 0.1 mg IVPUSH ONETIME PRN PRN Reason: Oversedation Ondansetron HCl (Zofran) 8 mg IVPUSH Q4H PRN PRN Reason: Nausea/Vomiting Oxycodone HCl (Oxycodone) 10 mg PO Q4H PRN PRN Reason: Pain Last Admin: 12/24/17 18:15 Dose: 10 mg Pantoprazole Sodium (Protonix) 40 mg PO ACBREAKFAST [facility] [place] Rifaximin (Xifaxan) 550 mg PO BID [facility] [place] Last Admin: 12/24/17 21:39 Dose: 550 mg Scopolamine (Transderm-Scop) 1.5 mg TOP Q72H [facility] [place] Stop: 12/26/17 05:00 Last Admin: 12/24/17 06:55 Dose: 1.5 mg Senna (Senna) 8.6 mg PO BID PRN PRN Reason: Constipation Sodium Chloride (Saline Flush) 10 ml FLUSH DAILY [facility] Spironolactone (Aldactone) 12.5 mg PO BID [facility] Last Admin: 12/24/17 21:39 Dose: 12.5 mg Tacrolimus (Prograf) 0.5 mg PO BID [facility] [place] Last Admin: 12/24/17 21:39 Dose: 0.5 mg Torsemide (Demadex) 20 mg PO DAILY [facility] [place] Tramadol HCl (Ultram) 100 mg PO Q6H PRN PRN Reason: Pain Triamcinolone Acetonide (Triamcinolone Acetonide 0.1% Crm) 0 gm TOP BID PRN PRN Reason: Rash Warfarin Sodium (Coumadin) 2 mg PO DAILY@1300 [facility] Zolpidem Tartrate (Ambien) 5 mg PO BEDTIME PRN PRN Reason: Sleep Discontinued Medications Acetaminophen (Tylenol Extra Strength) 1,000 mg PO ONETIME ONE Stop: 12/24/17 06:01 Last Admin: 12/24/17 06:55 Dose: 1,000 mg Allopurinol (Zyloprim) 100 mg PO ASDIRECTED [facility] [place] Bupivacaine HCl/Dextrose (Marcaine 0.75% Spinal) Confirm Administered Dose 2 ml .ROUTE .STK-MED ONE Stop: 12/24/17 07:24 Tranexamic Acid 3,000 mg/ (Sodium Chloride 100 ml) 0 mg TOP ASDIRECTED [facility] [place] Stop: 12/24/17 07:46 Last Admin: 12/24/17 09:00 Dose: 100 bag Ropivacaine 49.25 ml/Epinephrine HCl 0.5 mg/Clonidine HCl 80 mcg/ Sodium Chloride 48.45 ml 0 ml INJECT ONETIME ONE Stop: 12/24/17 07:46 Last Admin: 12/24/17 09:05 Dose: 90 ml Fentanyl (Sublimaze) Confirm Administered Dose 100 mcg .ROUTE .STK-MED ONE Stop: 12/24/17 07:24 Fentanyl (Sublimaze) 50 mcg IVPUSH ONETIME ONE Stop: 12/24/17 10:59 Last Admin: 12/24/17 11:03 Dose: 50 mcg Gentamicin Sulfate (Gentamicin) Confirm Administered Dose 240 mg .ROUTE .STK- MED ONE Stop: 12/24/17 06:47 Last Admin: 12/24/17 09:08 Dose: 240 mg Hydroxyzine HCl (Vistaril) 50 mg IM ONETIME ONE Stop: 12/24/17 11:00 Last Admin: 12/24/17 11:08 Dose: 50 mg Cefazolin Sodium/Dextrose 2 gm (/ Premix) 50 mls @ 100 mls/hr IV ONETIME ONE Stop: 12/24/17 07:59 Last Admin: 12/24/17 08:58 Dose: 100 mls/hr Lactated Ringer's (Ringers, Lactated) 1,000 mls @ 100 mls/hr IV ASDIRECTED [facility] [place] Last Admin: 12/24/17 06:56 Dose: 100 mls/hr Lactated Ringer's (Ringers, Lactated) Confirm Administered Dose 1,000 mls @ as directed .ROUTE .STK-MED ONE Stop: 12/24/17 08:59 Midazolam HCl (Versed 1 Mg/Ml) Confirm Administered Dose 2 mg .ROUTE .STK-MED ONE Stop: 12/24/17 07:24 Povidone Iodine (Betadine 10% Soln) Confirm Administered Dose 1 ml .ROUTE .STK- MED ONE Stop: 12/24/17 06:47 Last Admin: 12/24/17 09:08 Dose: 118 ml Propofol (Diprivan 20 Ml) Confirm Administered Dose 200 mg .ROUTE .STK-MED ONE Stop: 12/24/17 07:24 Propofol (Diprivan 20 Ml) Confirm Administered Dose 200 mg .ROUTE .STK-MED ONE Stop: 12/24/17 08:55 Propofol (Diprivan 20 Ml) Confirm Administered Dose 200 mg .ROUTE .STK-MED ONE Stop: 12/24/17 09:39 Propofol (Diprivan 20 Ml) Confirm Administered Dose 200 mg .ROUTE .STK-MED ONE Stop: 12/24/17 10:05 - Exam General: Alert, Oriented HEENT: Pupils Equal, Pupils Reactive, EOMI, Mucous Membr. Moist/[place] Neck: Supple Cardiovascular: Irregular Rhythm GI/Abdominal Exam: Normal Bowel Sounds, Soft, Non-Tender, No Organomegaly, No Distention, No Abnormal Bruit, No Mass, Pelvis Stable Peripheral Pulses: 1+: Posterior Tibial (L), Posterior Tibial (R), 2+: Radial (L ), Radial (R) Psy/Mental Status: Alert, Normal Affect, Normal Mood - Problem List Review Problem List Initiated/Reviewed/Updated: Yes - My Orders Last 24 Hours: My Active Orders 12/24/17 17:30 Insulin Aspart [NovoLOG] 25 unit SUBCUT BID@1200,1730 12/25/17 07:30 Pantoprazole [ProTONIX] 40 mg PO ACBREAKFAST 12/25/17 11:30 GLUCOSE POC LAB TO COLLECT [POC] QIDACANDBED 12/25/17 16:30 GLUCOSE POC LAB TO COLLECT [POC] QIDACANDBED 12/25/17 21:00 GLUCOSE POC LAB TO COLLECT [POC] QIDACANDBED 12/26/17 07:30 GLUCOSE POC LAB TO COLLECT [POC] QIDACANDBED 12/26/17 11:30 GLUCOSE POC LAB TO COLLECT [POC] QIDACANDBED 12/26/17 16:30 GLUCOSE POC LAB TO COLLECT [POC] QIDACANDBED 12/26/17 21:00 GLUCOSE POC LAB TO COLLECT [POC] QIDACANDBED 12/27/17 07:30 GLUCOSE POC LAB TO COLLECT [POC] QIDACANDBED 12/27/17 11:30 GLUCOSE POC LAB TO COLLECT [POC] QIDACANDBED - Assessment Assessment:: #1. Osteoarthritis of knees: S/P surgery/ He has a fever of 100.3 #2. DM II. Will watch Blood surger and adjust insulin as needed. FBS 148 this morning. #3. CRF: Will follow as needed. Creat 3.4 this morning. This is stable value for him as was 3.67 last month #4. S/P Liver transplant. Mentally not stable. Have increased Lactulose. #5. Atrial Fib.: Chronic and stable. #6. HTN: Blood pressure elevated. Elevation probably secondary to pain. Will watch his BP and temp and discharge home when improved.. - Plan Plan:: assessment:postoperative day 0 right total knee arthroplasty Plan:PT/OT/Pain control We'll start Lovenox 40 mg subcutaneous tomorrow morning. We restarted many of his meds today. the nursing supervisors currently reconciling medications and verifying what we have so far. Physical therapy is currently with the patient. Range of motion is -3-85 flexion. Pain is controlled at 4 out of 10.
[2017-12-25] MEDS: Insulin Detemir 100 Units/ML 3 ML Pen SUBCUT SCH ×2 (08:47→22:00)
[2017-12-25] MEDS: Torsemide 20 MG Tab PO SCH (08:51)
[2017-12-25] MEDS: Rifaximin 550 MG Tab PO SCH ×2 (08:51→21:55)
[2017-12-25] MEDS: Amylase/Lipase/Protease 12,000 Unit Cap.CR PO SCH ×3 (08:51→21:55)
[2017-12-25] MEDS: Spironolactone 25 MG Tab PO SCH ×2 (08:51→21:56)
[2017-12-25] MEDS: Tacrolimus 0.5 MG Cap PO SCH ×2 (08:52→21:55)
[2017-12-25] MEDS: Pantoprazole 40 MG Tab.CR PO SCH (08:52)
[2017-12-25] MEDS: Metoprolol Tartrate 25 MG Tab PO SCH ×2 (08:52→21:56)
[2017-12-25] MEDS: Bumetanide 1 MG Tab PO SCH (08:52)
[2017-12-25] MEDS: Sodium Chloride 0.9% 10 ML Syringe FLUSH SCH (08:52)
[2017-12-25] MEDS: oxyCODONE 5 MG Tab PO PRN (08:53)
[2017-12-25] MEDS: amLODIPine 10 MG Tab PO SCH (08:53)
[2017-12-25] MEDS: Enoxaparin 40 MG/0.4 ML Syringe SUBCUT SCH (08:53)
[2017-12-25] MEDS: Allopurinol 100 MG Tab PO SCH (08:54)
[2017-12-25] MEDS ORDERED: Non-Formulary Medication 1 Each (Warfarin [Coumadin] 2 MG) PO SCH (09:00)
[2017-12-25] MEDS ORDERED: Enoxaparin 30 MG/0.3 ML Syringe SUBCUT SCH (09:00)
--- NOTE | 2017-12-25 10:52 | PCM.PN ---
- General Info Date of Service: 12/25/17 Functional Status: Reports: Pain Controlled, Tolerating Diet, Ambulating - Review of Systems General: Reports: Weakness, Fatigue HEENT: Reports: No Symptoms Pulmonary: Reports: No Symptoms Cardiovascular: Reports: No Symptoms Gastrointestinal: Reports: No Symptoms Genitourinary: Reports: No Symptoms Musculoskeletal: Reports: Joint Pain Skin: Reports: No Symptoms Neurological: Reports: No Symptoms Psychiatric: Reports: No Symptoms - Patient Data Vitals - Most Recent: Last Vital Signs Temp 100.3 F 12/25/17 07:00 Pulse 81 12/25/17 08:52 Resp 18 12/25/17 07:00 BP 184/53 H 12/25/17 08:53 Pulse Ox 97 12/25/17 07:00 Weight - Most Recent: 235 lb I&O - Last 24 Hours: Intake & Output 12/24/17 12/25/17 12/25/17 22:59 06:59 14:59 Intake Total 360 600 Output Total 300 1150 Balance 60 -1150 600 Lab Results Last 24 Hours: Laboratory Results - last 24 hr 12/25/17 12/25/17 Range/Units 05:35 05:35 WBC 13.1 H (4.5-11.0) K/uL RBC 3.97 L (4.30-5.90) M/uL Hgb 13.4 (12.0-15.0) g/dL Hct 40.4 (40.0-54.0) % MCV 102 H (80-98) fL MCH 34 H (27-31) pg MCHC 33 (32-36) % Plt Count 396 (150-400) K/uL Neut % (Auto) 69 H (36-66) % Lymph % (Auto) 11 L (24-44) % [place] % (Auto) 20 H (2-6) % Eos % (Auto) 1 L (2-4) % Baso % (Auto) 0 (0-1) % Sodium 142 (140-148) mmol/L Potassium 4.7 (3.6-5.2) mmol/L Chloride 110 H (100-108) mmol/L Carbon Dioxide 20 L (21-32) mmol/L Anion Gap 16.7 H (5.0-14.0) mmol/L BUN 48 H (7-18) mg/dL Creatinine 3.4 H (0.8-1.3) mg/dL Est Cr Clr Drug Dosing 19.69 mL/min Estimated GFR (MDRD) 18 L (>60) Glucose 148 H (74-106) mg/dL Calcium 9.3 (8.5-10.1) mg/dL Total Bilirubin 1.9 H D (0.2-1.0) mg/dL AST 44 H D (15-37) U/L ALT 36 (12-78) U/L Alkaline Phosphatase 203 H (46-116) U/L Total Protein 7.2 (6.4-8.2) g/dL Albumin 3.0 L (3.4-5.0) g/dL Globulin 4.2 H (2.3-3.5) g/dL Albumin/Globulin Ratio 0.7 L (1.2-2.2) Med Orders - Current: Current Medications Al Hydroxide/Mg Hydroxide (Mag-Al Plus) 30 ml PO Q4H PRN PRN Reason: Constipation Allopurinol (Zyloprim) 100 mg PO Q48H [facility] Last Admin: 12/25/17 08:54 Dose: 100 mg Amlodipine Besylate (Norvasc) 10 mg PO DAILY [facility] Last Admin: 12/25/17 08:53 Dose: 10 mg Lipase/Protease/Amylase (Creon Dr 12,000 Units) 2 cap PO TID [facility] Last Admin: 12/25/17 08:51 Dose: 2 cap Bisacodyl (Dulcolax) 10 mg PO DAILY PRN PRN Reason: Constipation Bumetanide (Bumex) 1 mg PO DAILY [facility] Last Admin: 12/25/17 08:52 Dose: 1 mg Diphenhydramine HCl (Benadryl) 25 mg IVPUSH Q4H PRN PRN Reason: Itching Docusate Sodium (Colace) 100 mg PO BID PRN PRN Reason: Constipation Last Admin: 12/25/17 08:51 Dose: 100 mg Enoxaparin Sodium (Lovenox) 40 mg SUBCUT DAILY [facility] Last Admin: 12/25/17 08:53 Dose: 40 mg Lactated Ringer's (Ringers, Lactated) 1,000 mls @ 100 mls/hr IV ASDIRECTED [facility] Insulin Aspart (Novolog) 25 unit SUBCUT BID@1200,1730 [facility] Last Admin: 12/24/17 17:20 Dose: 25 units Insulin Detemir (Levemir) 25 unit SUBCUT BID [facility] Last Admin: 12/25/17 08:47 Dose: 25 units Lactulose (Chronulac) 10 gm PO QID PRN PRN Reason: Gas Magnesium Hydroxide (Milk Of Magnesia) 30 ml PO BID PRN PRN Reason: Constipation Metoprolol Tartrate (Lopressor) 12.5 mg PO BID [facility] Last Admin: 12/25/17 08:52 Dose: 12.5 mg Morphine Sulfate (Morphine) 2 mg IVPUSH Q2H PRN PRN Reason: Pain Last Admin: 12/24/17 12:25 Dose: 2 mg Multi-Ingred Cream/Lotion/Oil/Oint (Kerodex 71 Crm) 60 gm TOP DAILY PRN PRN Reason: Inflammation Naloxone HCl (Narcan) 0.1 mg IVPUSH ONETIME PRN PRN Reason: Oversedation Ondansetron HCl (Zofran) 8 mg IVPUSH Q4H PRN PRN Reason: Nausea/Vomiting Oxycodone HCl (Oxycodone) 10 mg PO Q4H PRN PRN Reason: Pain Last Admin: 12/25/17 08:53 Dose: 10 mg Pantoprazole Sodium (Protonix) 40 mg PO ACBREAKFAST [facility] Last Admin: 12/25/17 08:52 Dose: 40 mg Rifaximin (Xifaxan) 550 mg PO BID [facility] Last Admin: 12/25/17 08:51 Dose: 550 mg Scopolamine (Transderm-Scop) 1.5 mg TOP Q72H [facility] Stop: 12/26/17 05:00 Last Admin: 12/24/17 06:55 Dose: 1.5 mg Senna (Senna) 8.6 mg PO BID PRN PRN Reason: Constipation Sodium Chloride (Saline Flush) 10 ml FLUSH DAILY [facility] Last Admin: 12/25/17 08:52 Dose: 10 ml Spironolactone (Aldactone) 12.5 mg PO BID [facility] Last Admin: 12/25/17 08:51 Dose: 12.5 mg Tacrolimus (Prograf) 0.5 mg PO BID [facility] Last Admin: 12/25/17 08:52 Dose: 0.5 mg Torsemide (Demadex) 20 mg PO DAILY [facility] Last Admin: 12/25/17 08:51 Dose: 20 mg Tramadol HCl (Ultram) 100 mg PO Q6H PRN PRN Reason: Pain Triamcinolone Acetonide (Triamcinolone Acetonide 0.1% Crm) 0 gm TOP BID PRN PRN Reason: Rash Warfarin Sodium (Coumadin) 2 mg PO DAILY@1300 [facility] Zolpidem Tartrate (Ambien) 5 mg PO BEDTIME PRN PRN Reason: Sleep Discontinued Medications Acetaminophen (Tylenol Extra Strength) 1,000 mg PO ONETIME ONE Stop: 12/24/17 06:01 Last Admin: 12/24/17 06:55 Dose: 1,000 mg Allopurinol (Zyloprim) 100 mg PO ASDIRECTED [facility] Bupivacaine HCl/Dextrose (Marcaine 0.75% Spinal) Confirm Administered Dose 2 ml .ROUTE .STK-MED ONE Stop: 12/24/17 07:24 Tranexamic Acid 3,000 mg/ (Sodium Chloride 100 ml) 0 mg TOP ASDIRECTED [facility] Stop: 12/24/17 07:46 Last Admin: 12/24/17 09:00 Dose: 100 bag Ropivacaine 49.25 ml/Epinephrine HCl 0.5 mg/Clonidine HCl 80 mcg/ Sodium Chloride 48.45 ml 0 ml INJECT ONETIME ONE Stop: 12/24/17 07:46 Last Admin: 12/24/17 09:05 Dose: 90 ml Fentanyl (Sublimaze) Confirm Administered Dose 100 mcg .ROUTE .STK-MED ONE Stop: 12/24/17 07:24 Fentanyl (Sublimaze) 50 mcg IVPUSH ONETIME ONE Stop: 12/24/17 10:59 Last Admin: 12/24/17 11:03 Dose: 50 mcg Gentamicin Sulfate (Gentamicin) Confirm Administered Dose 240 mg .ROUTE .STK- MED ONE Stop: 12/24/17 06:47 Last Admin: 12/24/17 09:08 Dose: 240 mg Hydroxyzine HCl (Vistaril) 50 mg IM ONETIME ONE Stop: 12/24/17 11:00 Last Admin: 12/24/17 11:08 Dose: 50 mg Cefazolin Sodium/Dextrose 2 gm (/ Premix) 50 mls @ 100 mls/hr IV ONETIME ONE Stop: 12/24/17 07:59 Last Admin: 12/24/17 08:58 Dose: 100 mls/hr Lactated Ringer's (Ringers, Lactated) 1,000 mls @ 100 mls/hr IV ASDIRECTED [facility] Last Admin: 12/24/17 06:56 Dose: 100 mls/hr Lactated Ringer's (Ringers, Lactated) Confirm Administered Dose 1,000 mls @ as directed .ROUTE .STK-MED ONE Stop: 12/24/17 08:59 Midazolam HCl (Versed 1 Mg/Ml) Confirm Administered Dose 2 mg .ROUTE .STK-MED ONE Stop: 12/24/17 07:24 Povidone Iodine (Betadine 10% Soln) Confirm Administered Dose 1 ml .ROUTE .STK- MED ONE Stop: 12/24/17 06:47 Last Admin: 12/24/17 09:08 Dose: 118 ml Propofol (Diprivan 20 Ml) Confirm Administered Dose 200 mg .ROUTE .STK-MED ONE Stop: 12/24/17 07:24 Propofol (Diprivan 20 Ml) Confirm Administered Dose 200 mg .ROUTE .STK-MED ONE Stop: 12/24/17 08:55 Propofol (Diprivan 20 Ml) Confirm Administered Dose 200 mg .ROUTE .STK-MED ONE Stop: 12/24/17 09:39 Propofol (Diprivan 20 Ml) Confirm Administered Dose 200 mg .ROUTE .STK-MED ONE Stop: 12/24/17 10:05 - Exam General: Cooperative, No Acute Distress, Lethargic HEENT: Pupils Equal, Pupils Reactive, EOMI, Mucous Membr. Moist/[place] Neck: Supple, Trachea Midline Lungs: Normal Respiratory Effort Extremities: Limited Range of Motion Skin: Warm, Dry, Intact Wound/Incisions: Healing Well, Dressing Dry and Intact Neurological: No New Focal Deficit Psy/Mental Status: Normal Affect, Normal Mood - Problem List & Annotations (1) Primary osteoarthritis of both knees SNOMED Code(s): 584671732, [id number], [id number] Code(s): M17.0 - BILATERAL PRIMARY OSTEOARTHRITIS OF KNEE Status: Chronic Current Visit: No - Problem List Review Problem List Initiated/Reviewed/Updated: Yes - My Orders Last 24 Hours: My Active Orders 12/24/17 10:17 Patient Status [ADT] Routine Ambulate [RC] ASDIRECTED Head of Bed Elevation [RC] CONTINUOUS Intake and Output [RC] QSHIFT May Shower [RC] ASDIRECTED Neurovascular Check [RC] Q4HR Pneumonia Education [RC] UPON RT Incentive Spirometry [RC] Q1HWA Turn, Cough, Deep Breathe [RC] Q1HWA Up to Chair [RC] TIDMEALS Vital Signs [RC] PER UNIT ROUTINE Wound Care [RC] Q12H Consult to Physician [CONS] Routine OT Evaluation and Treatment [CONS] Routine PT Evaluation and Treatment [CONS] Routine Respiratory Care Assess and Treatment [CONS] Routine Alum Hydrox/Mag Hydrox/Simeth [Mag-Al Plus] 30 ml PO Q4H PRN Bisacodyl [Dulcolax] 10 mg PO DAILY PRN Docusate Sodium [Colace] 100 mg PO BID PRN Magnesium Hydroxide [Milk of Magnesia] 30 ml PO BID PRN Morphine 2 mg IVPUSH Q2H PRN Naloxone [Narcan] 0.1 mg IVPUSH ONETIME PRN Ondansetron [Zofran] 8 mg IVPUSH Q4H PRN Sennosides [Senna] 8.6 mg PO BID PRN Zolpidem [Ambien] 5 mg PO BEDTIME PRN diphenhydrAMINE [Benadryl] 25 mg IVPUSH Q4H PRN oxyCODONE 10 mg PO Q4H PRN traMADol [Ultram] 100 mg PO Q6H PRN DVT/VTE Prophylaxis Reflex [OM.PC] Routine Sequential Compression Device [OM.PC] Per Unit Routine Weight bearing status [OM.PC] Routine Resuscitation Status Routine 12/24/17 10:18 Antiembolic Devices [RC] .Routine Notify Provider Consults [RC] ASDIRECTED VTE/DVT Education [RC] Click to Edit 12/24/17 10:25 Hydrophilic Cream [Kerodex 71 Crm] 60 gm TOP DAILY PRN Lactulose [Chronulac] 10 gm PO QID PRN Triamcinolone Acetonide [Triamcinolone Acetonide 0.1% Crm] 0 gm TOP BID PRN 12/24/17 10:28 Accu Check [Blood Glucose Check, Bedside] [RC] QIDACANDBED 12/24/17 10:30 Lactated Ringers [Ringers, Lactated] 1,000 ml IV ASDIRECTED Convert IV to Saline Lock [OM.PC] PER UNIT ROUTINE Ice Therapy [OM.PC] PER UNIT ROUTINE Oral Care [OM.PC] BID 12/24/17 14:00 Amylase/Lipase/Protease [Nevaeh COLLIER 12,000 Units] 2 cap PO TID 12/24/17 21:00 Insulin Detemir [Levemir] 25 unit SUBCUT BID Metoprolol Tartrate [Lopressor] 12.5 mg PO BID Rifaximin [Xifaxan] 550 mg PO BID Spironolactone [Aldactone] 12.5 mg PO BID Tacrolimus [Prograf] 0.5 mg PO BID 12/24/17 Lunch Advance Diet Instructions [DIET] 12/25/17 09:00 Allopurinol [Zyloprim] 100 mg PO Q48H Bumetanide [Bumex] 1 mg PO DAILY Enoxaparin [Lovenox] 40 mg SUBCUT DAILY Sodium Chloride 0.9% [Saline Flush] 10 ml FLUSH DAILY Torsemide [Demadex] 20 mg PO DAILY amLODIPine [Norvasc] 10 mg PO DAILY 12/25/17 10:30 Oral Care [OM.PC] BID 12/25/17 13:00 Warfarin [Coumadin] 2 mg PO DAILY@1300 12/26/17 06:00 CBC WITH AUTO DIFF [HEME] DAILY COMPREHENSIVE METABOLIC PN,CMP [CHEM] DAILY 12/26/17 10:30 Oral Care [OM.PC] BID 12/27/17 06:00 CBC WITH AUTO DIFF [HEME] DAILY COMPREHENSIVE METABOLIC PN,CMP [CHEM] DAILY 12/27/17 10:30 Oral Care [OM.PC] BID 12/28/17 10:30 Oral Care [OM.PC] BID 12/29/17 10:30 Oral Care [OM.PC] BID 12/30/17 10:30 Oral Care [OM.PC] BID 12/31/17 10:30 Oral Care [OM.PC] BID 01/01/18 10:30 Oral Care [OM.PC] BID 01/02/18 10:30 Oral Care [OM.PC] BID - Assessment Assessment:: #1. Osteoarthritis of knees: S/P surgery/ He has a fever of 100.3 #2. DM II. Will watch Blood surger and adjust insulin as needed. FBS 148 this morning. #3. CRF: Will follow as needed. Creat 3.4 this morning. This is stable value for him as was 3.67 last month #4. S/P Liver transplant #5. Atrial Fib.: Chronic and stable. #6. HTN: Blood pressure elevated. Will watch his BP and temp and discharge home when improved.. - Plan Plan:: assessment:postoperative day 1 right total knee arthroplasty Plan:PT/OT/Pain control Patient is been more lethargic and sedated since last evening. Dr. Champion signs morning. I'm going to change the order from oxycodone 10 the oxycodone 5. The patient's family stated that when he has increased ammonia levels he does get more lethargic. He is currently on his enzyme to take care of that. We will see how he does with some fluids. He is running a low-grade fever which I do attribute to not using the incentive spirometer.
[2017-12-25] MEDS ORDERED: oxyCODONE 5 MG Tab PO PRN (10:54)
[2017-12-25] MEDS ORDERED: Lactulose Soln 10 GM/15 ML 15 ML UD Cup PO STA (11:05)
[2017-12-25] MEDS: Insulin Aspart 100 Units/ML 3 ML Pen SUBCUT SCH ×2 (12:53→18:43)
[2017-12-25] MEDS: ceFAZolin 2 GM in Premix Bag 1 BAG IV SCH ×2 (13:05→20:57)
[2017-12-25] MEDS: traMADol 50 MG Tab PO PRN ×2 (14:20→20:55)
[2017-12-25] MEDS: Lactulose Soln 10 GM/15 ML 15 ML UD Cup PO SCH ×2 (15:54→22:00)
[2017-12-26] MEDS: ceFAZolin 2 GM in Premix Bag 1 BAG IV SCH (03:25)
[2017-12-26] MEDS: Lactulose Soln 10 GM/15 ML 15 ML UD Cup PO SCH ×4 (05:18→21:13)
[2017-12-26] MEDS: Pantoprazole 40 MG Tab.CR PO SCH (07:44)
[2017-12-26] MEDS: traMADol 50 MG Tab PO PRN ×2 (07:55→14:31)
[2017-12-26] MEDS: Insulin Detemir 100 Units/ML 3 ML Pen SUBCUT SCH ×2 (08:05→20:53)
[2017-12-26] MEDS: Enoxaparin 40 MG/0.4 ML Syringe SUBCUT SCH (08:07)
[2017-12-26] MEDS: Spironolactone 25 MG Tab PO SCH ×2 (08:09→20:50)
[2017-12-26] MEDS: Bumetanide 1 MG Tab PO SCH (08:10)
[2017-12-26] MEDS: Torsemide 20 MG Tab PO SCH (08:11)
[2017-12-26] MEDS: Amylase/Lipase/Protease 12,000 Unit Cap.CR PO SCH ×3 (08:11→20:50)
[2017-12-26] MEDS: Metoprolol Tartrate 25 MG Tab PO SCH ×2 (08:12→20:51)
[2017-12-26] MEDS: Tacrolimus 0.5 MG Cap PO SCH ×2 (08:12→20:50)
[2017-12-26] MEDS: amLODIPine 10 MG Tab PO SCH (08:12)
[2017-12-26] MEDS: Rifaximin 550 MG Tab PO SCH ×2 (08:12→20:50)
[2017-12-26] MEDS: Sodium Chloride 0.9% 10 ML Syringe FLUSH SCH (08:13)
--- NOTE | 2017-12-26 12:04 | PCM.PN ---
- General Info Date of Service: 12/26/17 Functional Status: Reports: Pain Controlled, Tolerating Diet, Ambulating, Urinating, Incentive Spirometry - Review of Systems General: Reports: Fever HEENT: Reports: No Symptoms Pulmonary: Reports: No Symptoms Cardiovascular: Reports: No Symptoms Gastrointestinal: Reports: No Symptoms Genitourinary: Reports: No Symptoms Musculoskeletal: Reports: Joint Pain, Joint Swelling Skin: Reports: No Symptoms Neurological: Reports: No Symptoms Psychiatric: Reports: No Symptoms - Patient Data Vitals - Most Recent: Last Vital Signs Temp 99.3 F 12/26/17 07:25 Pulse 89 12/26/17 08:12 Resp 18 12/26/17 07:25 BP 145/52 H 12/26/17 08:12 Pulse Ox 96 12/26/17 07:25 Weight - Most Recent: 235 lb I&O - Last 24 Hours: Intake & Output 12/25/17 12/26/17 12/26/17 22:59 06:59 14:59 Intake Total 850 50 120 Output Total 650 700 Balance 200 -650 120 Lab Results Last 24 Hours: Laboratory Results - last 24 hr 12/25/17 12/26/17 12/26/17 Range/Units 11:06 06:00 06:00 WBC 16.3 H (4.5-11.0) K/uL RBC 3.37 L (4.30-5.90) M/uL Hgb 11.4 L D (12.0-15.0) g/dL Hct 34.4 L (40.0-54.0) % MCV 102 H (80-98) fL MCH 34 H (27-31) pg MCHC 33 (32-36) % Plt Count 327 (150-400) K/uL Add Manual Diff Yes Neutrophils % (Manual) 73 H (36-66) % Band Neutrophils % 4 L (5-11) % Lymphocytes % (Manual) 17 L (24-44) % Monocytes % (Manual) 5 (2-6) % Eosinophils % (Manual) 1 L (2-4) % Sodium 137 L (140-148) mmol/L Potassium 3.8 (3.6-5.2) mmol/L Chloride 105 (100-108) mmol/L Carbon Dioxide 19 L (21-32) mmol/L Anion Gap 16.8 H (5.0-14.0) mmol/L BUN 48 H (7-18) mg/dL Creatinine 3.6 H* (0.8-1.3) mg/dL Est Cr Clr Drug Dosing 18.52 mL/min Estimated GFR (MDRD) 17 L (>60) Glucose 150 H (74-106) mg/dL Calcium 9.2 (8.5-10.1) mg/dL Total Bilirubin 1.0 (0.2-1.0) mg/dL AST 26 (15-37) U/L ALT 21 (12-78) U/L Alkaline Phosphatase 171 H (46-116) U/L Ammonia 5 L (11-32) mmol/L Total Protein 6.3 L (6.4-8.2) g/dL Albumin 2.4 L (3.4-5.0) g/dL Globulin 3.9 H (2.3-3.5) g/dL Albumin/Globulin Ratio 0.6 L (1.2-2.2) Med Orders - Current: Current Medications Al Hydroxide/Mg Hydroxide (Mag-Al Plus) 30 ml PO Q4H PRN PRN Reason: Constipation Allopurinol (Zyloprim) 100 mg PO Q48H [facility] Last Admin: 12/25/17 08:54 Dose: 100 mg Amlodipine Besylate (Norvasc) 10 mg PO DAILY [facility] Last Admin: 12/26/17 08:12 Dose: 10 mg Lipase/Protease/Amylase (Creon Dr 12,000 Units) 2 cap PO TID [facility] Last Admin: 12/26/17 08:11 Dose: 2 cap Bisacodyl (Dulcolax) 10 mg PO DAILY PRN PRN Reason: Constipation Bumetanide (Bumex) 1 mg PO DAILY [facility] Last Admin: 12/26/17 08:10 Dose: 1 mg Diphenhydramine HCl (Benadryl) 25 mg IVPUSH Q4H PRN PRN Reason: Itching Docusate Sodium (Colace) 100 mg PO BID PRN PRN Reason: Constipation Last Admin: 12/25/17 08:51 Dose: 100 mg Enoxaparin Sodium (Lovenox) 30 mg SUBCUT DAILY [facility] Lactated Ringer's (Ringers, Lactated) 1,000 mls @ 100 mls/hr IV ASDIRECTED [facility] Insulin Aspart (Novolog) 25 unit SUBCUT BID@1200,1730 [facility] Last Admin: 12/25/17 18:43 Dose: 25 units Insulin Detemir (Levemir) 25 unit SUBCUT BID [facility] Last Admin: 12/26/17 08:05 Dose: 25 units Lactulose (Chronulac) 10 gm PO QID PRN PRN Reason: Gas Last Admin: 12/25/17 18:44 Dose: 10 gm Lactulose (Chronulac) 10 gm PO QID [facility] Last Admin: 12/26/17 10:57 Dose: 10 gm Magnesium Hydroxide (Milk Of Magnesia) 30 ml PO BID PRN PRN Reason: Constipation Metoprolol Tartrate (Lopressor) 12.5 mg PO BID [facility] Last Admin: 12/26/17 08:12 Dose: 12.5 mg Morphine Sulfate (Morphine) 2 mg IVPUSH Q2H PRN PRN Reason: Pain Last Admin: 12/24/17 12:25 Dose: 2 mg Multi-Ingred Cream/Lotion/Oil/Oint (Kerodex 71 Crm) 60 gm TOP DAILY PRN PRN Reason: Inflammation Naloxone HCl (Narcan) 0.1 mg IVPUSH ONETIME PRN PRN Reason: Oversedation Ondansetron HCl (Zofran) 8 mg IVPUSH Q4H PRN PRN Reason: Nausea/Vomiting Oxycodone HCl (Oxycodone) 5 mg PO Q4H PRN PRN Reason: Pain Pantoprazole Sodium (Protonix) 40 mg PO ACBREAKFAST [facility] Last Admin: 12/26/17 07:44 Dose: 40 mg Rifaximin (Xifaxan) 550 mg PO BID [facility] Last Admin: 12/26/17 08:12 Dose: 550 mg Senna (Senna) 8.6 mg PO BID PRN PRN Reason: Constipation Sodium Chloride (Saline Flush) 10 ml FLUSH DAILY [facility] Last Admin: 12/26/17 08:13 Dose: 10 ml Spironolactone (Aldactone) 12.5 mg PO BID [facility] Last Admin: 12/26/17 08:09 Dose: 12.5 mg Tacrolimus (Prograf) 0.5 mg PO BID [facility] Last Admin: 12/26/17 08:12 Dose: 0.5 mg Torsemide (Demadex) 20 mg PO DAILY [facility] Last Admin: 12/26/17 08:11 Dose: 20 mg Tramadol HCl (Ultram) 100 mg PO Q6H PRN PRN Reason: Pain Last Admin: 12/26/17 07:55 Dose: 100 mg Triamcinolone Acetonide (Triamcinolone Acetonide 0.1% Crm) 0 gm TOP BID PRN PRN Reason: Rash Warfarin Sodium (Coumadin) 2 mg PO DAILY@1300 [facility] Last Admin: 12/25/17 13:11 Dose: 2 mg Zolpidem Tartrate (Ambien) 5 mg PO BEDTIME PRN PRN Reason: Sleep Discontinued Medications Acetaminophen (Tylenol Extra Strength) 1,000 mg PO ONETIME ONE Stop: 12/24/17 06:01 Last Admin: 12/24/17 06:55 Dose: 1,000 mg Allopurinol (Zyloprim) 100 mg PO ASDIRECTED [facility] Bupivacaine HCl/Dextrose (Marcaine 0.75% Spinal) Confirm Administered Dose 2 ml .ROUTE .STK-MED ONE Stop: 12/24/17 07:24 Tranexamic Acid 3,000 mg/ (Sodium Chloride 100 ml) 0 mg TOP ASDIRECTED [facility] Stop: 12/24/17 07:46 Last Admin: 12/24/17 09:00 Dose: 100 bag Ropivacaine 49.25 ml/Epinephrine HCl 0.5 mg/Clonidine HCl 80 mcg/ Sodium Chloride 48.45 ml 0 ml INJECT ONETIME ONE Stop: 12/24/17 07:46 Last Admin: 12/24/17 09:05 Dose: 90 ml Enoxaparin Sodium (Lovenox) 40 mg SUBCUT DAILY [facility] Last Admin: 12/26/17 08:07 Dose: 40 mg Fentanyl (Sublimaze) Confirm Administered Dose 100 mcg .ROUTE .STK-MED ONE Stop: 12/24/17 07:24 Fentanyl (Sublimaze) 50 mcg IVPUSH ONETIME ONE Stop: 12/24/17 10:59 Last Admin: 12/24/17 11:03 Dose: 50 mcg Gentamicin Sulfate (Gentamicin) Confirm Administered Dose 240 mg .ROUTE .STK- MED ONE Stop: 12/24/17 06:47 Last Admin: 12/24/17 09:08 Dose: 240 mg Hydroxyzine HCl (Vistaril) 50 mg IM ONETIME ONE Stop: 12/24/17 11:00 Last Admin: 12/24/17 11:08 Dose: 50 mg Cefazolin Sodium/Dextrose 2 gm (/ Premix) 50 mls @ 100 mls/hr IV ONETIME ONE Stop: 12/24/17 07:59 Last Admin: 12/24/17 08:58 Dose: 100 mls/hr Lactated Ringer's (Ringers, Lactated) 1,000 mls @ 100 mls/hr IV ASDIRECTED [facility] Last Admin: 12/24/17 06:56 Dose: 100 mls/hr Lactated Ringer's (Ringers, Lactated) Confirm Administered Dose 1,000 mls @ as directed .ROUTE .STK-MED ONE Stop: 12/24/17 08:59 Cefazolin Sodium/Dextrose 2 gm (/ Premix) 50 mls @ 100 mls/hr IV Q8H [facility] Stop: 12/26/17 04:29 Last Admin: 12/26/17 03:25 Dose: 100 mls/hr Lactulose (Chronulac) 10 gm PO QID [facility] Stop: 12/25/17 11:06 Last Admin: 12/25/17 11:18 Dose: 10 gm Midazolam HCl (Versed 1 Mg/Ml) Confirm Administered Dose 2 mg .ROUTE .STK-MED ONE Stop: 12/24/17 07:24 Oxycodone HCl (Oxycodone) 10 mg PO Q4H PRN PRN Reason: Pain Last Admin: 12/25/17 08:53 Dose: 10 mg Povidone Iodine (Betadine 10% Soln) Confirm Administered Dose 1 ml .ROUTE .STK- MED ONE Stop: 12/24/17 06:47 Last Admin: 12/24/17 09:08 Dose: 118 ml Propofol (Diprivan 20 Ml) Confirm Administered Dose 200 mg .ROUTE .STK-MED ONE Stop: 12/24/17 07:24 Propofol (Diprivan 20 Ml) Confirm Administered Dose 200 mg .ROUTE .STK-MED ONE Stop: 12/24/17 08:55 Propofol (Diprivan 20 Ml) Confirm Administered Dose 200 mg .ROUTE .STK-MED ONE Stop: 12/24/17 09:39 Propofol (Diprivan 20 Ml) Confirm Administered Dose 200 mg .ROUTE .STK-MED ONE Stop: 12/24/17 10:05 Scopolamine (Transderm-Scop) 1.5 mg TOP Q72H [facility] Stop: 12/26/17 05:00 Last Admin: 12/24/17 06:55 Dose: 1.5 mg - Exam General: Alert, Oriented HEENT: Pupils Equal, Pupils Reactive Neck: Supple, Trachea Midline Lungs: Clear to Auscultation, Normal Respiratory Effort Extremities: Joint Swelling, Leg Pain, Limited Range of Motion, Increased Warmth Peripheral Pulses: 2+: Dorsalis Pedis (R) Skin: Warm, Dry, Intact Wound/Incisions: Healing Well, Dressing Dry and Intact, No Drainage Neurological: No New Focal Deficit Psy/Mental Status: Alert, Normal Affect, Normal Mood - Problem List & Annotations (1) Primary osteoarthritis of both knees SNOMED Code(s): 247411745, [id number], 716224138006508 Code(s): M17.0 - BILATERAL PRIMARY OSTEOARTHRITIS OF KNEE Status: Chronic Current Visit: No - Problem List Review Problem List Initiated/Reviewed/Updated: Yes - My Orders Last 24 Hours: My Active Orders 12/25/17 13:00 Warfarin [Coumadin] 2 mg PO DAILY@1300 12/25/17 13:12 Patient Status [ADT] Routine 12/26/17 10:30 Oral Care [OM.PC] BID 12/27/17 06:00 CBC WITH AUTO DIFF [HEME] DAILY COMPREHENSIVE METABOLIC PN,CMP [CHEM] DAILY 12/27/17 09:00 Enoxaparin [Lovenox] 30 mg SUBCUT DAILY 12/27/17 10:30 Oral Care [OM.PC] BID 12/28/17 10:30 Oral Care [OM.PC] BID 12/29/17 10:30 Oral Care [OM.PC] BID 12/30/17 10:30 Oral Care [OM.PC] BID 12/31/17 10:30 Oral Care [OM.PC] BID 01/01/18 10:30 Oral Care [OM.PC] BID 01/02/18 10:30 Oral Care [OM.PC] BID - Assessment Assessment:: #1. Osteoarthritis of knees: S/P surgery/ He has a fever of 100.3 #2. DM II. Will watch Blood surger and adjust insulin as needed. FBS 148 this morning. #3. CRF: Will follow as needed. Creat 3.4 this morning. This is stable value for him as was 3.67 last month #4. S/P Liver transplant. Mentally not stable. Have increased Lactulose. #5. Atrial Fib.: Chronic and stable. #6. HTN: Blood pressure elevated. Elevation probably secondary to pain. Will watch his BP and temp and discharge home when improved.. - Plan Plan:: assessment:postoperative day 0 right total knee arthroplasty Plan:PT/OT/Pain control Doing much better today. Had low grade fever and increased wbc. Dr. Champion aware. Finishing third dose of ancef. Will DC when ok with Dr. Champion with three week fu.
--- NOTE | 2017-12-26 12:07 | PCM.DCSUM1 ---
Discharge Summary - Hospital Course Brief History: R knee primary osteoarthritis. Diagnosis: Stroke: No - Discharge Data Discharge Date: 12/30/17 Discharge Disposition: Home, Self-Care 01 Condition: Good - Discharge Diagnosis/Problem(s) (1) Primary osteoarthritis of both knees SNOMED Code(s): 764175248, [id number], [id number] ICD Code: M17.0 - BILATERAL PRIMARY OSTEOARTHRITIS OF KNEE Status: Chronic - Patient Summary/Data Operative Procedure(s) Performed: R TKA Complications: none Consults: Consultations 12/24/17 10:17 Consult to Physician [CONS] Routine Consulting Provider: Gerry Champion Sr Courtesy Call Completed to Consulting Physician: Yes OT Evaluation and Treatment [CONS] Routine Please Evaluate and Treat. OT Reason for Consult: Strengthening This query below is only for informational purposes and is not editable. PT Evaluation and Treatment [CONS] Routine Please Evaluate and Treat. PT Reason for Consult: Strengthening This query below is only for informational purposes and is not editable. Respiratory Care Assess and Treatment [CONS] Routine Comment: Physician Instructions: Post-op Pneumonia Prevention - Patient Instructions Diet: Usual Diet as Tolerated Activity: Apply Ice, As Tolerated, Cough & Deep Breathe, No Strenuous Activities Driving: Do Not Drive Showering/Bathing: May Shower Wound/Incision Care: Keep Operative Site/Wound Site Clean and Dry, Change Dressing Daily Notify Provider of: Fever, Increased Pain, Swelling and Redness, Drainage, Nausea and/or Vomiting - Discharge Plan Prescriptions/Med Rec: oxyCODONE 5 mg PO Q8HR #90 tablet Cefadroxil 500 mg PO BID 5 Days capsule traMADol [Ultram] 100 mg PO Q6H PRN #90 tablet PRN Reason: Pain Home Medications: Home Meds Insulin Glarg,Human.Rec.Analog [Lantus Solostar] 25 units SUBCUT BID 12/21/14 [ History] Multivitamin with Minerals [Antioxidant Vitamin] 1 each PO DAILY 12/21/14 [ History] Tacrolimus 0.5 mg PO BID 12/21/14 [History] Triamcinolone Acetonide 1 film TP BID PRN 12/21/14 [History] amLODIPine Besylate [Amlodipine Besylate] 10 mg PO DAILY 12/21/14 [History] Insulin Aspart [Novolog Flexpen] 20 units SUBCUT BID@12,17 12/23/14 [History] Cholecalciferol (Vitamin D3) [Vitamin D3] 1 tab PO DAILY 02/03/15 [History] Acetaminophen [Acetaminophen Extra Strength] 500 mg PO BID PRN 11/29/17 [History ] Allopurinol [Zyloprim] 100 mg PO Q48H 11/29/17 [History] Amylase/Lipase/Protease [Creon DR 24,000 Unit] 1 cap PO TID 11/29/17 [History] Bumetanide [Bumex] 1 mg PO DAILY 11/29/17 [History] Cholecalciferol (Vitamin D3) [Vitamin D3] 400 unit PO DAILY 11/29/17 [History] Hydrophilic Cream [Basle] 60 gm TP DAILY PRN 11/29/17 [History] Insulin Aspart [Novolog Flexpen] 25 units SQ BID 11/29/17 [History] Lactulose 10 gm PO QID PRN 11/29/17 [History] Metoprolol Tartrate 12.5 mg PO BID 11/29/17 [History] Omeprazole 20 mg PO DAILY 11/29/17 [History] Spironolactone [Aldactone] 12.5 mg PO BID 11/29/17 [History] Torsemide 20 mg PO DAILY 11/29/17 [History] Warfarin [Coumadin] 2 mg PO DAILY 11/29/17 [History] Rifaximin [Xifaxan] 550 mg PO BID 12/24/17 [History] oxyCODONE 5 mg PO Q8HR #90 tablet 12/26/17 [Rx] traMADol [Ultram] 100 mg PO Q6H PRN #90 tablet 12/26/17 [Rx] Cefadroxil 500 mg PO BID 5 Days capsule 12/31/17 [Rx] Insulin Aspart [NovoLOG] 20 unit SUBCUT BID@1200,1730 pen 12/31/17 [Rx] Warfarin [Coumadin] 3 mg PO DAILY@1300 tablet 12/31/17 [Rx] Zolpidem [Ambien] 5 mg PO BEDTIME PRN tablet 12/31/17 [Rx] Patient Handouts: Constipation, Adult, [id number], Hand Washing, [id number] Referrals: Dheeraj John DO [Physician] - 01/13/18 11:00 am - General Info Functional Status: Reports: Pain Controlled, Tolerating Diet, Ambulating, Urinating - Review of Systems General: Reports: No Symptoms HEENT: Reports: No Symptoms Pulmonary: Reports: No Symptoms Cardiovascular: Reports: No Symptoms Gastrointestinal: Reports: No Symptoms Genitourinary: Reports: No Symptoms Musculoskeletal: Reports: Leg Pain, Joint Pain Skin: Reports: No Symptoms Neurological: Reports: No Symptoms Psychiatric: Reports: No Symptoms - Patient Data Vitals - Most Recent: Last Vital Signs Temp 99.3 F 12/26/17 07:25 Pulse 89 12/26/17 08:12 Resp 18 12/26/17 07:25 BP 145/52 H 12/26/17 08:12 Pulse Ox 96 12/26/17 07:25 Weight - Most Recent: 235 lb I&O - Last 24 hours: Intake & Output 12/25/17 12/26/17 12/26/17 22:59 06:59 14:59 Intake Total 850 50 120 Output Total 650 700 Balance 200 -650 120 Lab Results - Last 24 hrs: Laboratory Results - last 24 hr 12/25/17 12/26/17 12/26/17 Range/Units 11:06 06:00 06:00 WBC 16.3 H (4.5-11.0) K/uL RBC 3.37 L (4.30-5.90) M/uL Hgb 11.4 L D (12.0-15.0) g/dL Hct 34.4 L (40.0-54.0) % MCV 102 H (80-98) fL MCH 34 H (27-31) pg MCHC 33 (32-36) % Plt Count 327 (150-400) K/uL Add Manual Diff Yes Neutrophils % (Manual) 73 H (36-66) % Band Neutrophils % 4 L (5-11) % Lymphocytes % (Manual) 17 L (24-44) % Monocytes % (Manual) 5 (2-6) % Eosinophils % (Manual) 1 L (2-4) % Sodium 137 L (140-148) mmol/L Potassium 3.8 (3.6-5.2) mmol/L Chloride 105 (100-108) mmol/L Carbon Dioxide 19 L (21-32) mmol/L Anion Gap 16.8 H (5.0-14.0) mmol/L BUN 48 H (7-18) mg/dL Creatinine 3.6 H* (0.8-1.3) mg/dL Est Cr Clr Drug Dosing 18.52 mL/min Estimated GFR (MDRD) 17 L (>60) Glucose 150 H (74-106) mg/dL Calcium 9.2 (8.5-10.1) mg/dL Total Bilirubin 1.0 (0.2-1.0) mg/dL AST 26 (15-37) U/L ALT 21 (12-78) U/L Alkaline Phosphatase 171 H (46-116) U/L Ammonia 5 L (11-32) mmol/L Total Protein 6.3 L (6.4-8.2) g/dL Albumin 2.4 L (3.4-5.0) g/dL Globulin 3.9 H (2.3-3.5) g/dL Albumin/Globulin Ratio 0.6 L (1.2-2.2) Med Orders - Current: Current Medications Al Hydroxide/Mg Hydroxide (Mag-Al Plus) 30 ml PO Q4H PRN PRN Reason: Constipation Allopurinol (Zyloprim) 100 mg PO Q48H [facility] Last Admin: 12/25/17 08:54 Dose: 100 mg Amlodipine Besylate (Norvasc) 10 mg PO DAILY [facility] Last Admin: 12/26/17 08:12 Dose: 10 mg Lipase/Protease/Amylase (Creon Dr 12,000 Units) 2 cap PO TID [facility] Last Admin: 12/26/17 08:11 Dose: 2 cap Bisacodyl (Dulcolax) 10 mg PO DAILY PRN PRN Reason: Constipation Bumetanide (Bumex) 1 mg PO DAILY [facility] Last Admin: 12/26/17 08:10 Dose: 1 mg Diphenhydramine HCl (Benadryl) 25 mg IVPUSH Q4H PRN PRN Reason: Itching Docusate Sodium (Colace) 100 mg PO BID PRN PRN Reason: Constipation Last Admin: 12/25/17 08:51 Dose: 100 mg Enoxaparin Sodium (Lovenox) 30 mg SUBCUT DAILY [facility] Lactated Ringer's (Ringers, Lactated) 1,000 mls @ 100 mls/hr IV ASDIRECTED [facility] Insulin Aspart (Novolog) 25 unit SUBCUT BID@1200,1730 [facility] Last Admin: 12/25/17 18:43 Dose: 25 units Insulin Detemir (Levemir) 25 unit SUBCUT BID [facility] Last Admin: 12/26/17 08:05 Dose: 25 units Lactulose (Chronulac) 10 gm PO QID PRN PRN Reason: Gas Last Admin: 12/25/17 18:44 Dose: 10 gm Lactulose (Chronulac) 10 gm PO QID [facility] Last Admin: 12/26/17 10:57 Dose: 10 gm Magnesium Hydroxide (Milk Of Magnesia) 30 ml PO BID PRN PRN Reason: Constipation Metoprolol Tartrate (Lopressor) 12.5 mg PO BID [facility] Last Admin: 12/26/17 08:12 Dose: 12.5 mg Morphine Sulfate (Morphine) 2 mg IVPUSH Q2H PRN PRN Reason: Pain Last Admin: 12/24/17 12:25 Dose: 2 mg Multi-Ingred Cream/Lotion/Oil/Oint (Kerodex 71 Crm) 60 gm TOP DAILY PRN PRN Reason: Inflammation Naloxone HCl (Narcan) 0.1 mg IVPUSH ONETIME PRN PRN Reason: Oversedation Ondansetron HCl (Zofran) 8 mg IVPUSH Q4H PRN PRN Reason: Nausea/Vomiting Oxycodone HCl (Oxycodone) 5 mg PO Q4H PRN PRN Reason: Pain Pantoprazole Sodium (Protonix) 40 mg PO ACBREAKFAST [facility] Last Admin: 12/26/17 07:44 Dose: 40 mg Rifaximin (Xifaxan) 550 mg PO BID [facility] Last Admin: 12/26/17 08:12 Dose: 550 mg Senna (Senna) 8.6 mg PO BID PRN PRN Reason: Constipation Sodium Chloride (Saline Flush) 10 ml FLUSH DAILY [facility] Last Admin: 12/26/17 08:13 Dose: 10 ml Spironolactone (Aldactone) 12.5 mg PO BID [facility] Last Admin: 12/26/17 08:09 Dose: 12.5 mg Tacrolimus (Prograf) 0.5 mg PO BID [facility] Last Admin: 12/26/17 08:12 Dose: 0.5 mg Torsemide (Demadex) 20 mg PO DAILY [facility] Last Admin: 12/26/17 08:11 Dose: 20 mg Tramadol HCl (Ultram) 100 mg PO Q6H PRN PRN Reason: Pain Last Admin: 12/26/17 07:55 Dose: 100 mg Triamcinolone Acetonide (Triamcinolone Acetonide 0.1% Crm) 0 gm TOP BID PRN PRN Reason: Rash Warfarin Sodium (Coumadin) 2 mg PO DAILY@1300 [facility] Last Admin: 12/25/17 13:11 Dose: 2 mg Zolpidem Tartrate (Ambien) 5 mg PO BEDTIME PRN PRN Reason: Sleep Discontinued Medications Acetaminophen (Tylenol Extra Strength) 1,000 mg PO ONETIME ONE Stop: 12/24/17 06:01 Last Admin: 12/24/17 06:55 Dose: 1,000 mg Allopurinol (Zyloprim) 100 mg PO ASDIRECTED [facility] Bupivacaine HCl/Dextrose (Marcaine 0.75% Spinal) Confirm Administered Dose 2 ml .ROUTE .STK-MED ONE Stop: 12/24/17 07:24 Tranexamic Acid 3,000 mg/ (Sodium Chloride 100 ml) 0 mg TOP ASDIRECTED [facility] Stop: 12/24/17 07:46 Last Admin: 12/24/17 09:00 Dose: 100 bag Ropivacaine 49.25 ml/Epinephrine HCl 0.5 mg/Clonidine HCl 80 mcg/ Sodium Chloride 48.45 ml 0 ml INJECT ONETIME ONE Stop: 12/24/17 07:46 Last Admin: 12/24/17 09:05 Dose: 90 ml Enoxaparin Sodium (Lovenox) 40 mg SUBCUT DAILY [facility] Last Admin: 12/26/17 08:07 Dose: 40 mg Fentanyl (Sublimaze) Confirm Administered Dose 100 mcg .ROUTE .STK-MED ONE Stop: 12/24/17 07:24 Fentanyl (Sublimaze) 50 mcg IVPUSH ONETIME ONE Stop: 12/24/17 10:59 Last Admin: 12/24/17 11:03 Dose: 50 mcg Gentamicin Sulfate (Gentamicin) Confirm Administered Dose 240 mg .ROUTE .STK- MED ONE Stop: 12/24/17 06:47 Last Admin: 12/24/17 09:08 Dose: 240 mg Hydroxyzine HCl (Vistaril) 50 mg IM ONETIME ONE Stop: 12/24/17 11:00 Last Admin: 12/24/17 11:08 Dose: 50 mg Cefazolin Sodium/Dextrose 2 gm (/ Premix) 50 mls @ 100 mls/hr IV ONETIME ONE Stop: 12/24/17 07:59 Last Admin: 12/24/17 08:58 Dose: 100 mls/hr Lactated Ringer's (Ringers, Lactated) 1,000 mls @ 100 mls/hr IV ASDIRECTED [facility] Last Admin: 12/24/17 06:56 Dose: 100 mls/hr Lactated Ringer's (Ringers, Lactated) Confirm Administered Dose 1,000 mls @ as directed .ROUTE .STK-MED ONE Stop: 12/24/17 08:59 Cefazolin Sodium/Dextrose 2 gm (/ Premix) 50 mls @ 100 mls/hr IV Q8H [facility] Stop: 12/26/17 04:29 Last Admin: 12/26/17 03:25 Dose: 100 mls/hr Lactulose (Chronulac) 10 gm PO QID [facility] Stop: 12/25/17 11:06 Last Admin: 12/25/17 11:18 Dose: 10 gm Midazolam HCl (Versed 1 Mg/Ml) Confirm Administered Dose 2 mg .ROUTE .STK-MED ONE Stop: 12/24/17 07:24 Oxycodone HCl (Oxycodone) 10 mg PO Q4H PRN PRN Reason: Pain Last Admin: 12/25/17 08:53 Dose: 10 mg Povidone Iodine (Betadine 10% Soln) Confirm Administered Dose 1 ml .ROUTE .STK- MED ONE Stop: 12/24/17 06:47 Last Admin: 12/24/17 09:08 Dose: 118 ml Propofol (Diprivan 20 Ml) Confirm Administered Dose 200 mg .ROUTE .STK-MED ONE Stop: 12/24/17 07:24 Propofol (Diprivan 20 Ml) Confirm Administered Dose 200 mg .ROUTE .STK-MED ONE Stop: 12/24/17 08:55 Propofol (Diprivan 20 Ml) Confirm Administered Dose 200 mg .ROUTE .STK-MED ONE Stop: 12/24/17 09:39 Propofol (Diprivan 20 Ml) Confirm Administered Dose 200 mg .ROUTE .STK-MED ONE Stop: 12/24/17 10:05 Scopolamine (Transderm-Scop) 1.5 mg TOP Q72H [facility] Stop: 12/26/17 05:00 Last Admin: 12/24/17 06:55 Dose: 1.5 mg - Exam General: Reports: Alert, Oriented HEENT: Reports: Pupils Equal, Pupils Reactive, Mucous Membr. Moist/[place] Neck: Reports: Supple, Trachea Midline Lungs: Reports: Normal Respiratory Effort Extremities: Joint Swelling, Leg Pain, Limited Range of Motion Skin: Reports: Warm, Dry, Intact Wound/Incisions: Reports: Healing Well, Dressing Dry and Intact, No Drainage Neurological: Reports: No New Focal Deficit Psy/Mental Status: Reports: Alert, Normal Affect, Normal Mood Discharge Operative/Procedures - Procedures Performed Operations: r tka
--- NOTE | 2017-12-26 12:17 | PCM.SN ---
- Free Text/Narrative Note: Yesterday patient was switched to inpatient due to comorbidities and difficulty ambulating
[2017-12-26] MEDS: Insulin Aspart 100 Units/ML 3 ML Pen SUBCUT SCH ×2 (12:47→17:19)
--- NOTE | 2017-12-26 19:02 | PCM.PN ---
- General Info Date of Service: 12/26/17 Functional Status: Reports: Pain Controlled - Review of Systems General: Reports: Weakness HEENT: Reports: No Symptoms Pulmonary: Reports: Shortness of Breath Cardiovascular: Reports: Dyspnea on Exertion Gastrointestinal: Reports: No Symptoms Genitourinary: Reports: No Symptoms Musculoskeletal: Reports: No Symptoms Skin: Reports: No Symptoms Neurological: Reports: No Symptoms Psychiatric: Reports: No Symptoms - Patient Data Vitals - Most Recent: Last Vital Signs Temp 98.8 F 12/26/17 16:47 Pulse 62 12/26/17 16:47 Resp 12 12/26/17 16:47 BP 111/47 L 12/26/17 16:47 Pulse Ox 98 12/26/17 16:47 Weight - Most Recent: 235 lb I&O - Last 24 Hours: Intake & Output 12/26/17 12/26/17 12/26/17 06:59 14:59 22:59 Intake Total 50 540 Output Total 700 Balance -650 540 Lab Results Last 24 Hours: Laboratory Results - last 24 hr 12/26/17 12/26/17 Range/Units 06:00 06:00 WBC 16.3 H (4.5-11.0) K/uL RBC 3.37 L (4.30-5.90) M/uL Hgb 11.4 L D (12.0-15.0) g/dL Hct 34.4 L (40.0-54.0) % MCV 102 H (80-98) fL MCH 34 H (27-31) pg MCHC 33 (32-36) % Plt Count 327 (150-400) K/uL Add Manual Diff Yes Neutrophils % (Manual) 73 H (36-66) % Band Neutrophils % 4 L (5-11) % Lymphocytes % (Manual) 17 L (24-44) % Monocytes % (Manual) 5 (2-6) % Eosinophils % (Manual) 1 L (2-4) % Sodium 137 L (140-148) mmol/L Potassium 3.8 (3.6-5.2) mmol/L Chloride 105 (100-108) mmol/L Carbon Dioxide 19 L (21-32) mmol/L Anion Gap 16.8 H (5.0-14.0) mmol/L BUN 48 H (7-18) mg/dL Creatinine 3.6 H* (0.8-1.3) mg/dL Est Cr Clr Drug Dosing 18.52 mL/min Estimated GFR (MDRD) 17 L (>60) Glucose 150 H (74-106) mg/dL Calcium 9.2 (8.5-10.1) mg/dL Total Bilirubin 1.0 (0.2-1.0) mg/dL AST 26 (15-37) U/L ALT 21 (12-78) U/L Alkaline Phosphatase 171 H (46-116) U/L Total Protein 6.3 L (6.4-8.2) g/dL Albumin 2.4 L (3.4-5.0) g/dL Globulin 3.9 H (2.3-3.5) g/dL Albumin/Globulin Ratio 0.6 L (1.2-2.2) Med Orders - Current: Current Medications Al Hydroxide/Mg Hydroxide (Mag-Al Plus) 30 ml PO Q4H PRN PRN Reason: Constipation Allopurinol (Zyloprim) 100 mg PO Q48H [facility] Last Admin: 12/25/17 08:54 Dose: 100 mg Amlodipine Besylate (Norvasc) 10 mg PO DAILY [facility] Last Admin: 12/26/17 08:12 Dose: 10 mg Lipase/Protease/Amylase (Creon Dr 12,000 Units) 2 cap PO TID [facility] Last Admin: 12/26/17 14:28 Dose: 2 cap Bisacodyl (Dulcolax) 10 mg PO DAILY PRN PRN Reason: Constipation Bumetanide (Bumex) 1 mg PO DAILY [facility] Last Admin: 12/26/17 08:10 Dose: 1 mg Diphenhydramine HCl (Benadryl) 25 mg IVPUSH Q4H PRN PRN Reason: Itching Docusate Sodium (Colace) 100 mg PO BID PRN PRN Reason: Constipation Last Admin: 12/25/17 08:51 Dose: 100 mg Enoxaparin Sodium (Lovenox) 30 mg SUBCUT DAILY [facility] Lactated Ringer's (Ringers, Lactated) 1,000 mls @ 100 mls/hr IV ASDIRECTED [facility] Insulin Aspart (Novolog) 25 unit SUBCUT BID@1200,1730 [facility] Last Admin: 12/26/17 17:19 Dose: Not Given Insulin Detemir (Levemir) 25 unit SUBCUT BID [facility] Last Admin: 12/26/17 08:05 Dose: 25 units Lactulose (Chronulac) 10 gm PO QID PRN PRN Reason: Gas Last Admin: 12/25/17 18:44 Dose: 10 gm Lactulose (Chronulac) 10 gm PO QID [facility] Last Admin: 12/26/17 17:20 Dose: 10 gm Magnesium Hydroxide (Milk Of Magnesia) 30 ml PO BID PRN PRN Reason: Constipation Metoprolol Tartrate (Lopressor) 12.5 mg PO BID [facility] Last Admin: 12/26/17 08:12 Dose: 12.5 mg Morphine Sulfate (Morphine) 2 mg IVPUSH Q2H PRN PRN Reason: Pain Last Admin: 12/24/17 12:25 Dose: 2 mg Multi-Ingred Cream/Lotion/Oil/Oint (Kerodex 71 Crm) 60 gm TOP DAILY PRN PRN Reason: Inflammation Naloxone HCl (Narcan) 0.1 mg IVPUSH ONETIME PRN PRN Reason: Oversedation Ondansetron HCl (Zofran) 8 mg IVPUSH Q4H PRN PRN Reason: Nausea/Vomiting Oxycodone HCl (Oxycodone) 5 mg PO Q4H PRN PRN Reason: Pain Pantoprazole Sodium (Protonix) 40 mg PO ACBREAKFAST [facility] Last Admin: 12/26/17 07:44 Dose: 40 mg Rifaximin (Xifaxan) 550 mg PO BID [facility] Last Admin: 12/26/17 08:12 Dose: 550 mg Senna (Senna) 8.6 mg PO BID PRN PRN Reason: Constipation Sodium Chloride (Saline Flush) 10 ml FLUSH DAILY [facility] Last Admin: 12/26/17 08:13 Dose: 10 ml Spironolactone (Aldactone) 12.5 mg PO BID [facility] Last Admin: 12/26/17 08:09 Dose: 12.5 mg Tacrolimus (Prograf) 0.5 mg PO BID [facility] Last Admin: 12/26/17 08:12 Dose: 0.5 mg Torsemide (Demadex) 20 mg PO DAILY [facility] Last Admin: 12/26/17 08:11 Dose: 20 mg Tramadol HCl (Ultram) 100 mg PO Q6H PRN PRN Reason: Pain Last Admin: 12/26/17 14:31 Dose: 100 mg Triamcinolone Acetonide (Triamcinolone Acetonide 0.1% Crm) 0 gm TOP BID PRN PRN Reason: Rash Warfarin Sodium (Coumadin) 2 mg PO DAILY@1300 [facility] Last Admin: 12/26/17 12:48 Dose: 2 mg Zolpidem Tartrate (Ambien) 5 mg PO BEDTIME PRN PRN Reason: Sleep Discontinued Medications Acetaminophen (Tylenol Extra Strength) 1,000 mg PO ONETIME ONE Stop: 12/24/17 06:01 Last Admin: 12/24/17 06:55 Dose: 1,000 mg Allopurinol (Zyloprim) 100 mg PO ASDIRECTED [facility] Bupivacaine HCl/Dextrose (Marcaine 0.75% Spinal) Confirm Administered Dose 2 ml .ROUTE .STK-MED ONE Stop: 12/24/17 07:24 Tranexamic Acid 3,000 mg/ (Sodium Chloride 100 ml) 0 mg TOP ASDIRECTED [facility] Stop: 12/24/17 07:46 Last Admin: 12/24/17 09:00 Dose: 100 bag Ropivacaine 49.25 ml/Epinephrine HCl 0.5 mg/Clonidine HCl 80 mcg/ Sodium Chloride 48.45 ml 0 ml INJECT ONETIME ONE Stop: 12/24/17 07:46 Last Admin: 12/24/17 09:05 Dose: 90 ml Enoxaparin Sodium (Lovenox) 40 mg SUBCUT DAILY [facility] Last Admin: 12/26/17 08:07 Dose: 40 mg Fentanyl (Sublimaze) Confirm Administered Dose 100 mcg .ROUTE .STK-MED ONE Stop: 12/24/17 07:24 Fentanyl (Sublimaze) 50 mcg IVPUSH ONETIME ONE Stop: 12/24/17 10:59 Last Admin: 12/24/17 11:03 Dose: 50 mcg Gentamicin Sulfate (Gentamicin) Confirm Administered Dose 240 mg .ROUTE .STK- MED ONE Stop: 12/24/17 06:47 Last Admin: 12/24/17 09:08 Dose: 240 mg Hydroxyzine HCl (Vistaril) 50 mg IM ONETIME ONE Stop: 12/24/17 11:00 Last Admin: 12/24/17 11:08 Dose: 50 mg Cefazolin Sodium/Dextrose 2 gm (/ Premix) 50 mls @ 100 mls/hr IV ONETIME ONE Stop: 12/24/17 07:59 Last Admin: 12/24/17 08:58 Dose: 100 mls/hr Lactated Ringer's (Ringers, Lactated) 1,000 mls @ 100 mls/hr IV ASDIRECTED [facility] Last Admin: 12/24/17 06:56 Dose: 100 mls/hr Lactated Ringer's (Ringers, Lactated) Confirm Administered Dose 1,000 mls @ as directed .ROUTE .STK-MED ONE Stop: 12/24/17 08:59 Cefazolin Sodium/Dextrose 2 gm (/ Premix) 50 mls @ 100 mls/hr IV Q8H [facility] Stop: 12/26/17 04:29 Last Admin: 12/26/17 03:25 Dose: 100 mls/hr Lactulose (Chronulac) 10 gm PO QID [facility] Stop: 12/25/17 11:06 Last Admin: 12/25/17 11:18 Dose: 10 gm Midazolam HCl (Versed 1 Mg/Ml) Confirm Administered Dose 2 mg .ROUTE .STK-MED ONE Stop: 12/24/17 07:24 Oxycodone HCl (Oxycodone) 10 mg PO Q4H PRN PRN Reason: Pain Last Admin: 12/25/17 08:53 Dose: 10 mg Povidone Iodine (Betadine 10% Soln) Confirm Administered Dose 1 ml .ROUTE .STK- MED ONE Stop: 12/24/17 06:47 Last Admin: 12/24/17 09:08 Dose: 118 ml Propofol (Diprivan 20 Ml) Confirm Administered Dose 200 mg .ROUTE .STK-MED ONE Stop: 12/24/17 07:24 Propofol (Diprivan 20 Ml) Confirm Administered Dose 200 mg .ROUTE .STK-MED ONE Stop: 12/24/17 08:55 Propofol (Diprivan 20 Ml) Confirm Administered Dose 200 mg .ROUTE .STK-MED ONE Stop: 12/24/17 09:39 Propofol (Diprivan 20 Ml) Confirm Administered Dose 200 mg .ROUTE .STK-MED ONE Stop: 12/24/17 10:05 Scopolamine (Transderm-Scop) 1.5 mg TOP Q72H [facility] Stop: 12/26/17 05:00 Last Admin: 12/24/17 06:55 Dose: 1.5 mg - Exam General: Alert, Oriented HEENT: Pupils Equal, Pupils Reactive, EOMI, Mucous Membr. Moist/[place] Neck: Supple Lungs: Clear to Auscultation, Normal Respiratory Effort Cardiovascular: Irregular Rhythm GI/Abdominal Exam: Normal Bowel Sounds, Soft, Non-Tender, No Organomegaly, No Distention, No Abnormal Bruit, No Mass, Pelvis Stable Back Exam: Normal Inspection, Full Range of Motion Extremities: Joint Swelling Peripheral Pulses: 1+: Radial (L), Radial (R) Neurological: No New Focal Deficit Psy/Mental Status: Alert, Normal Affect, Normal Mood - Problem List Review Problem List Initiated/Reviewed/Updated: Yes - My Orders Last 24 Hours: My Active Orders 12/26/17 21:00 GLUCOSE POC LAB TO COLLECT [POC] QIDACANDBED 12/27/17 05:11 AMMONIA VENOUS [CHEM] Routine CBC WITH AUTO DIFF [HEME] Routine COMPREHENSIVE METABOLIC PN,CMP [CHEM] Routine 12/27/17 07:30 GLUCOSE POC LAB TO COLLECT [POC] QIDACANDBED 12/27/17 11:30 GLUCOSE POC LAB TO COLLECT [POC] QIDACANDBED - Assessment Assessment:: #1. Osteoarthritis of knees: S/P surgery/ He has a fever this morning and this afternoon was normal at 98.8. WBC was up to 16.3. #2. DM II. Will watch Blood surger and adjust insulin as needed. FBS 150 this morning. #3. CRF: Will follow as needed. Creat 3.6 this morning. This is stable value for him as was 3.67 last month #4. S/P Liver transplant. Mentally not stable. Have increased Lactulose. #5. Atrial Fib.: Chronic and stable. #6. HTN: Blood pressure elevated. Elevation probably secondary to pain. This morning BP was 145/52 this PM is 111/47 Will watch his BP and temp and discharge home when improved tomorrow if stable. The says she would be unable to care for him with his strength he has now so NH may be the only choice - Plan Plan:: assessment:postoperative day 0 right total knee arthroplasty Plan:PT/OT/Pain control Doing much better today. Had low grade fever and increased wbc. Dr. Champion aware. Finishing third dose of ancef. Will DC when ok with Dr. Champion with three week fu.
[2017-12-27] MEDS: Lactulose Soln 10 GM/15 ML 15 ML UD Cup PO SCH ×4 (06:26→21:22)
[2017-12-27] MEDS: Dextrose 5%-0.9% NaCl 1,000 ML IV SCH (07:45)
[2017-12-27] MEDS: Bumetanide 1 MG Tab PO SCH (08:15)
[2017-12-27] MEDS: Pantoprazole 40 MG Tab.CR PO SCH (08:15)
[2017-12-27] MEDS: Amylase/Lipase/Protease 12,000 Unit Cap.CR PO SCH ×3 (08:16→21:19)
[2017-12-27] MEDS: Torsemide 20 MG Tab PO SCH (08:17)
[2017-12-27] MEDS: Sodium Chloride 0.9% 10 ML Syringe FLUSH SCH (08:18)
[2017-12-27] MEDS: Tacrolimus 0.5 MG Cap PO SCH ×2 (08:18→21:20)
[2017-12-27] MEDS: Enoxaparin 30 MG/0.3 ML Syringe SUBCUT SCH (08:18)
[2017-12-27] MEDS: Rifaximin 550 MG Tab PO SCH ×2 (08:19→21:20)
[2017-12-27] MEDS: Spironolactone 25 MG Tab PO SCH ×2 (08:19→21:19)
[2017-12-27] MEDS: traMADol 50 MG Tab PO PRN ×2 (08:20→13:53)
[2017-12-27] MEDS: Insulin Detemir 100 Units/ML 3 ML Pen SUBCUT SCH ×2 (10:45→21:22)
[2017-12-27] MEDS: amLODIPine 10 MG Tab PO SCH (10:46)
[2017-12-27] MEDS: Metoprolol Tartrate 25 MG Tab PO SCH ×2 (10:47→21:21)
[2017-12-27] MEDS: Allopurinol 100 MG Tab PO SCH (10:48)
[2017-12-27] MEDS: Insulin Aspart 100 Units/ML 3 ML Pen SUBCUT SCH ×2 (12:17→18:42)
--- NOTE | 2017-12-27 15:49 | PCM.PN ---
- General Info Date of Service: 12/27/17 - Review of Systems General: Reports: Weakness HEENT: Reports: No Symptoms Pulmonary: Reports: Shortness of Breath Cardiovascular: Reports: Dyspnea on Exertion Gastrointestinal: Reports: No Symptoms Genitourinary: Reports: No Symptoms Musculoskeletal: Reports: Joint Pain Skin: Reports: No Symptoms, Cyanosis Neurological: Reports: Difficulty Walking, Weakness - Patient Data Vitals - Most Recent: Last Vital Signs Temp 99.1 F 12/27/17 15:23 Pulse 97 12/27/17 15:23 Resp 16 12/27/17 15:23 BP 126/44 L 12/27/17 15:23 Pulse Ox 94 L 12/27/17 15:23 Weight - Most Recent: 235 lb I&O - Last 24 Hours: Intake & Output 12/27/17 12/27/17 12/27/17 06:59 14:59 22:59 Intake Total 540 720 840 Balance 540 720 840 Lab Results Last 24 Hours: Laboratory Results - last 24 hr 12/27/17 12/27/17 12/27/17 Range/Units 05:44 05:44 05:44 WBC 13.1 H (4.5-11.0) K/uL RBC 3.20 L (4.30-5.90) M/uL Hgb 10.7 L (12.0-15.0) g/dL Hct 32.8 L (40.0-54.0) % MCV 103 H (80-98) fL MCH 33 H (27-31) pg MCHC 33 (32-36) % Plt Count 322 (150-400) K/uL Neut % (Auto) 68 H (36-66) % Lymph % (Auto) 11 L (24-44) % [place] % (Auto) 19 H (2-6) % Eos % (Auto) 2 (2-4) % Baso % (Auto) 0 (0-1) % PT (9.5-12.0) sec INR (0.80-1.20) Sodium 136 L (140-148) mmol/L Potassium 3.8 (3.6-5.2) mmol/L Chloride 104 (100-108) mmol/L Carbon Dioxide 21 (21-32) mmol/L Anion Gap 14.8 H (5.0-14.0) mmol/L BUN 55 H (7-18) mg/dL Creatinine 4.1 H* (0.8-1.3) mg/dL Est Cr Clr Drug Dosing 16.26 mL/min Estimated GFR (MDRD) 14 L (>60) Glucose 45 L* (74-106) mg/dL Calcium 9.2 (8.5-10.1) mg/dL Total Bilirubin 1.3 H (0.2-1.0) mg/dL AST 21 (15-37) U/L ALT 9 L (12-78) U/L Alkaline Phosphatase 175 H (46-116) U/L Ammonia 31 (11-32) mmol/L Total Protein 6.4 (6.4-8.2) g/dL Albumin 2.3 L (3.4-5.0) g/dL Globulin 4.1 H (2.3-3.5) g/dL Albumin/Globulin Ratio 0.6 L (1.2-2.2) 12/27/17 Range/Units 05:50 WBC (4.5-11.0) K/uL RBC (4.30-5.90) M/uL Hgb (12.0-15.0) g/dL Hct (40.0-54.0) % MCV (80-98) fL MCH (27-31) pg MCHC (32-36) % Plt Count (150-400) K/uL Neut % (Auto) (36-66) % Lymph % (Auto) (24-44) % [place] % (Auto) (2-6) % Eos % (Auto) (2-4) % Baso % (Auto) (0-1) % PT 14.3 H (9.5-12.0) sec INR 1.32 H (0.80-1.20) Sodium (140-148) mmol/L Potassium (3.6-5.2) mmol/L Chloride (100-108) mmol/L Carbon Dioxide (21-32) mmol/L Anion Gap (5.0-14.0) mmol/L BUN (7-18) mg/dL Creatinine (0.8-1.3) mg/dL Est Cr Clr Drug Dosing mL/min Estimated GFR (MDRD) (>60) Glucose (74-106) mg/dL Calcium (8.5-10.1) mg/dL Total Bilirubin (0.2-1.0) mg/dL AST (15-37) U/L ALT (12-78) U/L Alkaline Phosphatase (46-116) U/L Ammonia (11-32) mmol/L Total Protein (6.4-8.2) g/dL Albumin (3.4-5.0) g/dL Globulin (2.3-3.5) g/dL Albumin/Globulin Ratio (1.2-2.2) Med Orders - Current: Current Medications Al Hydroxide/Mg Hydroxide (Mag-Al Plus) 30 ml PO Q4H PRN PRN Reason: Constipation Allopurinol (Zyloprim) 100 mg PO Q48H [facility] Last Admin: 12/27/17 10:48 Dose: 100 mg Amlodipine Besylate (Norvasc) 10 mg PO DAILY [facility] Last Admin: 12/27/17 10:46 Dose: 10 mg Lipase/Protease/Amylase (Creon Dr 12,000 Units) 2 cap PO TID [facility] Last Admin: 12/27/17 13:54 Dose: 2 cap Bisacodyl (Dulcolax) 10 mg PO DAILY PRN PRN Reason: Constipation Bumetanide (Bumex) 1 mg PO DAILY [facility] Last Admin: 12/27/17 08:15 Dose: 1 mg Diphenhydramine HCl (Benadryl) 25 mg IVPUSH Q4H PRN PRN Reason: Itching Docusate Sodium (Colace) 100 mg PO BID PRN PRN Reason: Constipation Last Admin: 12/25/17 08:51 Dose: 100 mg Enoxaparin Sodium (Lovenox) 30 mg SUBCUT DAILY [facility] Last Admin: 12/27/17 08:18 Dose: 30 mg Lactated Ringer's (Ringers, Lactated) 1,000 mls @ 100 mls/hr IV ASDIRECTED [facility] Dextrose/Sodium Chloride (Dextrose 5%-Normal Saline) 1,000 mls @ 125 mls/hr IV ASDIRECTED [facility] Last Admin: 12/27/17 07:45 Dose: 125 mls/hr Insulin Aspart (Novolog) 25 unit SUBCUT BID@1200,1730 [facility] Last Admin: 12/27/17 12:17 Dose: 25 units Insulin Detemir (Levemir) 25 unit SUBCUT BID [facility] Last Admin: 12/27/17 10:45 Dose: 25 units Lactulose (Chronulac) 10 gm PO QID PRN PRN Reason: Gas Last Admin: 12/25/17 18:44 Dose: 10 gm Lactulose (Chronulac) 10 gm PO QID [facility] Last Admin: 12/27/17 10:49 Dose: Not Given Magnesium Hydroxide (Milk Of Magnesia) 30 ml PO BID PRN PRN Reason: Constipation Metoprolol Tartrate (Lopressor) 12.5 mg PO BID [facility] Last Admin: 12/27/17 10:47 Dose: 12.5 mg Morphine Sulfate (Morphine) 2 mg IVPUSH Q2H PRN PRN Reason: Pain Last Admin: 12/24/17 12:25 Dose: 2 mg Multi-Ingred Cream/Lotion/Oil/Oint (Kerodex 71 Crm) 60 gm TOP DAILY PRN PRN Reason: Inflammation Naloxone HCl (Narcan) 0.1 mg IVPUSH ONETIME PRN PRN Reason: Oversedation Ondansetron HCl (Zofran) 8 mg IVPUSH Q4H PRN PRN Reason: Nausea/Vomiting Oxycodone HCl (Oxycodone) 5 mg PO Q4H PRN PRN Reason: Pain Pantoprazole Sodium (Protonix) 40 mg PO ACBREAKFAST [facility] Last Admin: 12/27/17 08:15 Dose: 40 mg Rifaximin (Xifaxan) 550 mg PO BID [facility] Last Admin: 12/27/17 08:19 Dose: 550 mg Senna (Senna) 8.6 mg PO BID PRN PRN Reason: Constipation Sodium Chloride (Saline Flush) 10 ml FLUSH DAILY [facility] Last Admin: 12/27/17 08:18 Dose: 10 ml Spironolactone (Aldactone) 12.5 mg PO BID [facility] Last Admin: 12/27/17 08:19 Dose: 12.5 mg Tacrolimus (Prograf) 0.5 mg PO BID [facility] Last Admin: 12/27/17 08:18 Dose: 0.5 mg Torsemide (Demadex) 20 mg PO DAILY [facility] Last Admin: 12/27/17 08:17 Dose: 20 mg Tramadol HCl (Ultram) 100 mg PO Q6H PRN PRN Reason: Pain Last Admin: 12/27/17 13:53 Dose: 100 mg Triamcinolone Acetonide (Triamcinolone Acetonide 0.1% Crm) 0 gm TOP BID PRN PRN Reason: Rash Warfarin Sodium (Coumadin) 2 mg PO DAILY@1300 [facility] Last Admin: 12/27/17 12:18 Dose: 2 mg Zolpidem Tartrate (Ambien) 5 mg PO BEDTIME PRN PRN Reason: Sleep Discontinued Medications Acetaminophen (Tylenol Extra Strength) 1,000 mg PO ONETIME ONE Stop: 12/24/17 06:01 Last Admin: 12/24/17 06:55 Dose: 1,000 mg Allopurinol (Zyloprim) 100 mg PO ASDIRECTED [facility] Bupivacaine HCl/Dextrose (Marcaine 0.75% Spinal) Confirm Administered Dose 2 ml .ROUTE .STK-MED ONE Stop: 12/24/17 07:24 Tranexamic Acid 3,000 mg/ (Sodium Chloride 100 ml) 0 mg TOP ASDIRECTED [facility] Stop: 12/24/17 07:46 Last Admin: 12/24/17 09:00 Dose: 100 bag Ropivacaine 49.25 ml/Epinephrine HCl 0.5 mg/Clonidine HCl 80 mcg/ Sodium Chloride 48.45 ml 0 ml INJECT ONETIME ONE Stop: 12/24/17 07:46 Last Admin: 12/24/17 09:05 Dose: 90 ml Enoxaparin Sodium (Lovenox) 40 mg SUBCUT DAILY [facility] Last Admin: 12/26/17 08:07 Dose: 40 mg Fentanyl (Sublimaze) Confirm Administered Dose 100 mcg .ROUTE .STK-MED ONE Stop: 12/24/17 07:24 Fentanyl (Sublimaze) 50 mcg IVPUSH ONETIME ONE Stop: 12/24/17 10:59 Last Admin: 12/24/17 11:03 Dose: 50 mcg Gentamicin Sulfate (Gentamicin) Confirm Administered Dose 240 mg .ROUTE .STK- MED ONE Stop: 12/24/17 06:47 Last Admin: 12/24/17 09:08 Dose: 240 mg Hydroxyzine HCl (Vistaril) 50 mg IM ONETIME ONE Stop: 12/24/17 11:00 Last Admin: 12/24/17 11:08 Dose: 50 mg Cefazolin Sodium/Dextrose 2 gm (/ Premix) 50 mls @ 100 mls/hr IV ONETIME ONE Stop: 12/24/17 07:59 Last Admin: 12/24/17 08:58 Dose: 100 mls/hr Lactated Ringer's (Ringers, Lactated) 1,000 mls @ 100 mls/hr IV ASDIRECTED [facility] Last Admin: 12/24/17 06:56 Dose: 100 mls/hr Lactated Ringer's (Ringers, Lactated) Confirm Administered Dose 1,000 mls @ as directed .ROUTE .STK-MED ONE Stop: 12/24/17 08:59 Cefazolin Sodium/Dextrose 2 gm (/ Premix) 50 mls @ 100 mls/hr IV Q8H [facility] Stop: 12/26/17 04:29 Last Admin: 12/26/17 03:25 Dose: 100 mls/hr Lactulose (Chronulac) 10 gm PO QID [facility] Stop: 12/25/17 11:06 Last Admin: 12/25/17 11:18 Dose: 10 gm Midazolam HCl (Versed 1 Mg/Ml) Confirm Administered Dose 2 mg .ROUTE .STK-MED ONE Stop: 12/24/17 07:24 Oxycodone HCl (Oxycodone) 10 mg PO Q4H PRN PRN Reason: Pain Last Admin: 12/25/17 08:53 Dose: 10 mg Povidone Iodine (Betadine 10% Soln) Confirm Administered Dose 1 ml .ROUTE .STK- MED ONE Stop: 12/24/17 06:47 Last Admin: 12/24/17 09:08 Dose: 118 ml Propofol (Diprivan 20 Ml) Confirm Administered Dose 200 mg .ROUTE .STK-MED ONE Stop: 12/24/17 07:24 Propofol (Diprivan 20 Ml) Confirm Administered Dose 200 mg .ROUTE .STK-MED ONE Stop: 12/24/17 08:55 Propofol (Diprivan 20 Ml) Confirm Administered Dose 200 mg .ROUTE .STK-MED ONE Stop: 12/24/17 09:39 Propofol (Diprivan 20 Ml) Confirm Administered Dose 200 mg .ROUTE .STK-MED ONE Stop: 12/24/17 10:05 Scopolamine (Transderm-Scop) 1.5 mg TOP Q72H [facility] Stop: 12/26/17 05:00 Last Admin: 12/24/17 06:55 Dose: 1.5 mg - Exam General: Alert, Oriented HEENT: Pupils Equal, Pupils Reactive, EOMI, Mucous Membr. Moist/[place] Neck: Supple Lungs: Clear to Auscultation, Normal Respiratory Effort Cardiovascular: Irregular Rhythm Extremities: Joint Swelling Peripheral Pulses: 1+: Radial (L), Radial (R) Skin: Warm, Dry, Intact Wound/Incisions: Healing Well Psy/Mental Status: Alert, Normal Affect, Normal Mood - Problem List Review Problem List Initiated/Reviewed/Updated: Yes - My Orders Last 24 Hours: My Active Orders 12/27/17 07:00 Dextrose 5%-0.9% NaCl [Dextrose 5%-Normal Saline] 1,000 ml IV ASDIRECTED - Assessment Assessment:: #1. Osteoarthritis of knees: S/P surgery/ He has a fever this morning and this afternoon was normal at 98.8. WBC was 10.7 #2. DM II. Will watch Blood sugar and adjust insulin as needed. FBS 45 this morning. #3. CRF: Will follow as needed. Creat 4.1 with BUN 13.1 this morning. This is stable value for him as was 3.67 last month. I restarted the IV this morning s appears a little dry with a creatinin going up. #4. S/P Liver transplant. Mentally not stable. Have increased Lactulose. #5. Atrial Fib.: Chronic and stable. #6. HTN: Blood pressure elevated. Elevation probably secondary to pain. This morning BP was 145/52 this PM is 111/47 Will watch his BP was 126/44 with a temperature 99.1 had this morning. I feel that he is doing much better plan will be to [facility] . Will continue with physical therap - Plan Plan:: assessment:postoperative day 0 right total knee arthroplasty Plan:PT/OT/Pain control Doing much better today. Had low grade fever and increased wbc. Dr. Champion aware. Finishing third dose of ancef. Will DC when ok with Dr. Champion with three week fu.
[2017-12-28] MEDS: Lactulose Soln 10 GM/15 ML 15 ML UD Cup PO SCH ×2 (06:24→11:20)
[2017-12-28] MEDS: Pantoprazole 40 MG Tab.CR PO SCH (06:30)
[2017-12-28] MEDS: traMADol 50 MG Tab PO PRN ×2 (08:45→20:05)
[2017-12-28] MEDS: Spironolactone 25 MG Tab PO SCH ×2 (09:01→20:51)
[2017-12-28] MEDS: Torsemide 20 MG Tab PO SCH (09:02)
[2017-12-28] MEDS: Amylase/Lipase/Protease 12,000 Unit Cap.CR PO SCH ×3 (09:02→20:51)
[2017-12-28] MEDS: Bumetanide 1 MG Tab PO SCH (09:02)
[2017-12-28] MEDS: Enoxaparin 30 MG/0.3 ML Syringe SUBCUT SCH (09:03)
[2017-12-28] MEDS: amLODIPine 10 MG Tab PO SCH (09:04)
[2017-12-28] MEDS: Tacrolimus 0.5 MG Cap PO SCH ×2 (09:04→20:51)
[2017-12-28] MEDS: Rifaximin 550 MG Tab PO SCH ×2 (09:05→20:51)
[2017-12-28] MEDS: Insulin Detemir 100 Units/ML 3 ML Pen SUBCUT SCH ×2 (09:24→20:54)
[2017-12-28] MEDS: Sodium Chloride 0.9% 10 ML Syringe FLUSH SCH (09:25)
[2017-12-28] MEDS: Metoprolol Tartrate 25 MG Tab PO SCH ×2 (09:28→20:50)
--- NOTE | 2017-12-28 10:10 | PCM.PN ---
- General Info Date of Service: 12/28/17 Functional Status: Reports: Pain Controlled - Review of Systems General: Reports: Weakness HEENT: Reports: No Symptoms Pulmonary: Reports: No Symptoms Cardiovascular: Reports: No Symptoms Gastrointestinal: Reports: No Symptoms Genitourinary: Reports: No Symptoms Musculoskeletal: Reports: Joint Pain Skin: Reports: No Symptoms Neurological: Reports: Difficulty Walking Psychiatric: Reports: No Symptoms - Patient Data Vitals - Most Recent: Last Vital Signs Temp 99 F 12/28/17 07:30 Pulse 71 12/28/17 09:28 Resp 16 12/28/17 07:30 BP 117/46 L 12/28/17 09:28 Pulse Ox 97 12/28/17 07:30 Weight - Most Recent: 235 lb I&O - Last 24 Hours: Intake & Output 12/27/17 12/28/17 12/28/17 22:59 06:59 14:59 Intake Total 1920 120 Output Total 800 250 Balance 1120 -250 120 Lab Results Last 24 Hours: Laboratory Results - last 24 hr 12/28/17 Range/Units 04:27 PT 16.2 H (9.5-12.0) sec INR 1.49 H (0.80-1.20) Med Orders - Current: Current Medications Al Hydroxide/Mg Hydroxide (Mag-Al Plus) 30 ml PO Q4H PRN PRN Reason: Constipation Allopurinol (Zyloprim) 100 mg PO Q48H [facility] Last Admin: 12/27/17 10:48 Dose: 100 mg Amlodipine Besylate (Norvasc) 10 mg PO DAILY [facility] Last Admin: 12/28/17 09:04 Dose: 10 mg Lipase/Protease/Amylase (Creon Dr 12,000 Units) 2 cap PO TID [facility] Last Admin: 12/28/17 09:02 Dose: 2 cap Bisacodyl (Dulcolax) 10 mg PO DAILY PRN PRN Reason: Constipation Bumetanide (Bumex) 1 mg PO DAILY [facility] Last Admin: 12/28/17 09:02 Dose: 1 mg Diphenhydramine HCl (Benadryl) 25 mg IVPUSH Q4H PRN PRN Reason: Itching Docusate Sodium (Colace) 100 mg PO BID PRN PRN Reason: Constipation Last Admin: 12/25/17 08:51 Dose: 100 mg Enoxaparin Sodium (Lovenox) 30 mg SUBCUT DAILY [facility] Last Admin: 12/28/17 09:03 Dose: 30 mg Lactated Ringer's (Ringers, Lactated) 1,000 mls @ 100 mls/hr IV ASDIRECTED [facility] Dextrose/Sodium Chloride (Dextrose 5%-Normal Saline) 1,000 mls @ 125 mls/hr IV ASDIRECTED [facility] Last Admin: 12/27/17 07:45 Dose: 125 mls/hr Insulin Aspart (Novolog) 25 unit SUBCUT BID@1200,1730 [facility] Last Admin: 12/27/17 18:42 Dose: 25 units Insulin Detemir (Levemir) 25 unit SUBCUT BID [facility] Last Admin: 12/28/17 09:24 Dose: 25 units Lactulose (Chronulac) 10 gm PO QID PRN PRN Reason: Gas Last Admin: 12/25/17 18:44 Dose: 10 gm Lactulose (Chronulac) 10 gm PO QID [facility] Last Admin: 12/28/17 06:24 Dose: 10 gm Magnesium Hydroxide (Milk Of Magnesia) 30 ml PO BID PRN PRN Reason: Constipation Metoprolol Tartrate (Lopressor) 12.5 mg PO BID [facility] Last Admin: 12/28/17 09:28 Dose: 12.5 mg Morphine Sulfate (Morphine) 2 mg IVPUSH Q2H PRN PRN Reason: Pain Last Admin: 12/24/17 12:25 Dose: 2 mg Multi-Ingred Cream/Lotion/Oil/Oint (Kerodex 71 Crm) 60 gm TOP DAILY PRN PRN Reason: Inflammation Naloxone HCl (Narcan) 0.1 mg IVPUSH ONETIME PRN PRN Reason: Oversedation Ondansetron HCl (Zofran) 8 mg IVPUSH Q4H PRN PRN Reason: Nausea/Vomiting Oxycodone HCl (Oxycodone) 5 mg PO Q4H PRN PRN Reason: Pain Pantoprazole Sodium (Protonix) 40 mg PO ACBREAKFAST [facility] Last Admin: 12/28/17 06:30 Dose: 40 mg Rifaximin (Xifaxan) 550 mg PO BID [facility] Last Admin: 12/28/17 09:05 Dose: 550 mg Senna (Senna) 8.6 mg PO BID PRN PRN Reason: Constipation Sodium Chloride (Saline Flush) 10 ml FLUSH DAILY [facility] Last Admin: 12/28/17 09:25 Dose: 10 ml Spironolactone (Aldactone) 12.5 mg PO BID [facility] Last Admin: 12/28/17 09:01 Dose: 12.5 mg Tacrolimus (Prograf) 0.5 mg PO BID [facility] Last Admin: 12/28/17 09:04 Dose: 0.5 mg Torsemide (Demadex) 20 mg PO DAILY [facility] Last Admin: 12/28/17 09:02 Dose: 20 mg Tramadol HCl (Ultram) 100 mg PO Q6H PRN PRN Reason: Pain Last Admin: 12/28/17 08:45 Dose: 100 mg Triamcinolone Acetonide (Triamcinolone Acetonide 0.1% Crm) 0 gm TOP BID PRN PRN Reason: Rash Warfarin Sodium (Coumadin) 2 mg PO DAILY@1300 [facility] Last Admin: 12/27/17 12:18 Dose: 2 mg Warfarin Sodium (Coumadin) 3 mg PO DAILY@1300 [facility] Zolpidem Tartrate (Ambien) 5 mg PO BEDTIME PRN PRN Reason: Sleep Discontinued Medications Acetaminophen (Tylenol Extra Strength) 1,000 mg PO ONETIME ONE Stop: 12/24/17 06:01 Last Admin: 12/24/17 06:55 Dose: 1,000 mg Allopurinol (Zyloprim) 100 mg PO ASDIRECTED [facility] Bupivacaine HCl/Dextrose (Marcaine 0.75% Spinal) Confirm Administered Dose 2 ml .ROUTE .STK-MED ONE Stop: 12/24/17 07:24 Tranexamic Acid 3,000 mg/ (Sodium Chloride 100 ml) 0 mg TOP ASDIRECTED [facility] Stop: 12/24/17 07:46 Last Admin: 12/24/17 09:00 Dose: 100 bag Ropivacaine 49.25 ml/Epinephrine HCl 0.5 mg/Clonidine HCl 80 mcg/ Sodium Chloride 48.45 ml 0 ml INJECT ONETIME ONE Stop: 12/24/17 07:46 Last Admin: 12/24/17 09:05 Dose: 90 ml Enoxaparin Sodium (Lovenox) 40 mg SUBCUT DAILY [facility] Last Admin: 12/26/17 08:07 Dose: 40 mg Fentanyl (Sublimaze) Confirm Administered Dose 100 mcg .ROUTE .STK-MED ONE Stop: 12/24/17 07:24 Fentanyl (Sublimaze) 50 mcg IVPUSH ONETIME ONE Stop: 12/24/17 10:59 Last Admin: 12/24/17 11:03 Dose: 50 mcg Gentamicin Sulfate (Gentamicin) Confirm Administered Dose 240 mg .ROUTE .STK- MED ONE Stop: 12/24/17 06:47 Last Admin: 12/24/17 09:08 Dose: 240 mg Hydroxyzine HCl (Vistaril) 50 mg IM ONETIME ONE Stop: 12/24/17 11:00 Last Admin: 12/24/17 11:08 Dose: 50 mg Cefazolin Sodium/Dextrose 2 gm (/ Premix) 50 mls @ 100 mls/hr IV ONETIME ONE Stop: 12/24/17 07:59 Last Admin: 12/24/17 08:58 Dose: 100 mls/hr Lactated Ringer's (Ringers, Lactated) 1,000 mls @ 100 mls/hr IV ASDIRECTED [facility] Last Admin: 12/24/17 06:56 Dose: 100 mls/hr Lactated Ringer's (Ringers, Lactated) Confirm Administered Dose 1,000 mls @ as directed .ROUTE .STK-MED ONE Stop: 12/24/17 08:59 Cefazolin Sodium/Dextrose 2 gm (/ Premix) 50 mls @ 100 mls/hr IV Q8H [facility] Stop: 12/26/17 04:29 Last Admin: 12/26/17 03:25 Dose: 100 mls/hr Lactulose (Chronulac) 10 gm PO QID [facility] Stop: 12/25/17 11:06 Last Admin: 12/25/17 11:18 Dose: 10 gm Midazolam HCl (Versed 1 Mg/Ml) Confirm Administered Dose 2 mg .ROUTE .STK-MED ONE Stop: 12/24/17 07:24 Oxycodone HCl (Oxycodone) 10 mg PO Q4H PRN PRN Reason: Pain Last Admin: 12/25/17 08:53 Dose: 10 mg Povidone Iodine (Betadine 10% Soln) Confirm Administered Dose 1 ml .ROUTE .STK- MED ONE Stop: 12/24/17 06:47 Last Admin: 12/24/17 09:08 Dose: 118 ml Propofol (Diprivan 20 Ml) Confirm Administered Dose 200 mg .ROUTE .STK-MED ONE Stop: 12/24/17 07:24 Propofol (Diprivan 20 Ml) Confirm Administered Dose 200 mg .ROUTE .STK-MED ONE Stop: 12/24/17 08:55 Propofol (Diprivan 20 Ml) Confirm Administered Dose 200 mg .ROUTE .STK-MED ONE Stop: 12/24/17 09:39 Propofol (Diprivan 20 Ml) Confirm Administered Dose 200 mg .ROUTE .STK-MED ONE Stop: 12/24/17 10:05 Scopolamine (Transderm-Scop) 1.5 mg TOP Q72H [facility] Stop: 12/26/17 05:00 Last Admin: 12/24/17 06:55 Dose: 1.5 mg - Exam General: Alert Lungs: Clear to Auscultation Cardiovascular: Regular Rate, Regular Rhythm Extremities: Joint Swelling, Other (There is no significant swelling other than what would be expected after surgery of the right knee.) Peripheral Pulses: 1+: Radial (L), Radial (R) Skin: Warm Wound/Incisions: Healing Well - Problem List Review Problem List Initiated/Reviewed/Updated: Yes - My Orders Last 24 Hours: My Active Orders 12/27/17 15:51 Convert IV to Saline Lock [OM.PC] Routine 12/28/17 11:30 GLUCOSE POC LAB TO COLLECT [POC] QIDACANDBED 12/28/17 13:00 Warfarin [Coumadin] 3 mg PO DAILY@1300 12/28/17 16:30 GLUCOSE POC LAB TO COLLECT [POC] QIDACANDBED 12/28/17 21:00 GLUCOSE POC LAB TO COLLECT [POC] QIDACANDBED 12/29/17 05:11 AMMONIA VENOUS [CHEM] Routine BASIC METABOLIC PANEL,BMP [CHEM] Routine CBC WITH AUTO DIFF [HEME] Routine - Assessment Assessment:: #1. Osteoarthritis of knees: S/P surgery/ He still running a low-grade fever of 100.1 with a blood pressure this evening of 123/42 which was very similar to this morning. In the afternoon he did spike the fever and had increased redness of his knee and started him on Zosyn a decreased dose because his renal dysfunction and spoke with Dr. John. It was reported that his temperature was 101 it was actually 100.1. I did do blood cultures this evening. #2. DM II. Will watch Blood sugar and adjust insulin as needed. morning blood sugars were acceptable and this evening the blood sugar is elevated to 254 #3. CRF: Will follow as needed. Creat 4.5 as yesterday was 4.1.. This is stable value for him as was 3.67 last month. I restarted the IV this morning s appears a little dry with a creatinin going up. #4. S/P Liver transplant. Mentally not stable. #5. Atrial Fib.: Chronic and stable. #6. HTN: Blood pressure good control 122/42 I am concerned about the elevation of temperature and the redness in the knee. - Plan Plan:: assessment:postoperative day 0 right total knee arthroplasty Plan:PT/OT/Pain control Doing much better today. Had low grade fever and increased wbc. Dr. Champion aware. Finishing third dose of ancef. Will DC when ok with Dr. Champion with three week fu.
[2017-12-28] MEDS: Insulin Aspart 100 Units/ML 3 ML Pen SUBCUT SCH ×2 (11:59→18:47)
[2017-12-29] MEDS: Dextrose 5%-0.9% NaCl 1,000 ML IV SCH ×2 (00:09→05:37)
[2017-12-29] MEDS: Piperacillin/Tazobactam 2.25 GM in Sodium Chloride 0.9% 50 ML IV SCH ×5 (00:11→23:00)
--- NOTE | 2017-12-29 07:36 | PCM.PN ---
- General Info Date of Service: 12/29/17 Functional Status: Reports: Pain Controlled - Review of Systems General: Reports: Fever, Weakness HEENT: Reports: No Symptoms Pulmonary: Reports: No Symptoms Cardiovascular: Reports: No Symptoms Gastrointestinal: Reports: No Symptoms Genitourinary: Reports: No Symptoms Musculoskeletal: Reports: Joint Pain Skin: Reports: Other (redness over the right knee) Neurological: Reports: Difficulty Walking, Weakness, Gait Disturbance Psychiatric: Reports: No Symptoms - Patient Data Vitals - Most Recent: Last Vital Signs Temp 99.7 F 12/29/17 05:35 Pulse 57 L 12/29/17 05:35 Resp 16 12/29/17 05:35 BP 119/40 L 12/29/17 05:35 Pulse Ox 96 12/29/17 05:35 Weight - Most Recent: 235 lb I&O - Last 24 Hours: Intake & Output 12/28/17 12/29/17 12/29/17 22:59 06:59 14:59 Intake Total 400 Output Total 425 Balance 400 -425 Lab Results Last 24 Hours: Laboratory Results - last 24 hr 12/28/17 12/28/17 12/29/17 Range/Units 22:53 22:59 04:36 WBC 10.8 (4.5-11.0) K/uL RBC 2.88 L (4.30-5.90) M/uL Hgb 9.6 L (12.0-15.0) g/dL Hct 29.6 L (40.0-54.0) % MCV 103 H (80-98) fL MCH 33 H (27-31) pg MCHC 32 (32-36) % Plt Count 329 (150-400) K/uL PT (9.5-12.0) sec INR (0.80-1.20) Sodium 133 L (140-148) mmol/L Potassium 4.2 (3.6-5.2) mmol/L Chloride 102 (100-108) mmol/L Carbon Dioxide 21 (21-32) mmol/L Anion Gap 14.2 H (5.0-14.0) mmol/L BUN 67 H (7-18) mg/dL Creatinine 4.5 H* (0.8-1.3) mg/dL Est Cr Clr Drug Dosing 14.81 mL/min Estimated GFR (MDRD) 13 L (>60) Glucose 254 H (74-106) mg/dL Calcium 8.3 L (8.5-10.1) mg/dL Total Bilirubin 1.0 (0.2-1.0) mg/dL AST 21 (15-37) U/L ALT 9 L (12-78) U/L Alkaline Phosphatase 202 H (46-116) U/L Ammonia 41 H (11-32) mmol/L Total Protein 5.5 L (6.4-8.2) g/dL Albumin 2.1 L (3.4-5.0) g/dL Globulin 3.4 (2.3-3.5) g/dL Albumin/Globulin Ratio 0.6 L (1.2-2.2) 12/29/17 Range/Units 04:36 WBC (4.5-11.0) K/uL RBC (4.30-5.90) M/uL Hgb (12.0-15.0) g/dL Hct (40.0-54.0) % MCV (80-98) fL MCH (27-31) pg MCHC (32-36) % Plt Count (150-400) K/uL PT 19.6 H (9.5-12.0) sec INR 1.79 H (0.80-1.20) Sodium (140-148) mmol/L Potassium (3.6-5.2) mmol/L Chloride (100-108) mmol/L Carbon Dioxide (21-32) mmol/L Anion Gap (5.0-14.0) mmol/L BUN (7-18) mg/dL Creatinine (0.8-1.3) mg/dL Est Cr Clr Drug Dosing mL/min Estimated GFR (MDRD) (>60) Glucose (74-106) mg/dL Calcium (8.5-10.1) mg/dL Total Bilirubin (0.2-1.0) mg/dL AST (15-37) U/L ALT (12-78) U/L Alkaline Phosphatase (46-116) U/L Ammonia (11-32) mmol/L Total Protein (6.4-8.2) g/dL Albumin (3.4-5.0) g/dL Globulin (2.3-3.5) g/dL Albumin/Globulin Ratio (1.2-2.2) Med Orders - Current: Current Medications Al Hydroxide/Mg Hydroxide (Mag-Al Plus) 30 ml PO Q4H PRN PRN Reason: Constipation Allopurinol (Zyloprim) 100 mg PO Q48H [facility] Last Admin: 12/27/17 10:48 Dose: 100 mg Amlodipine Besylate (Norvasc) 10 mg PO DAILY [facility] Last Admin: 12/28/17 09:04 Dose: 10 mg Lipase/Protease/Amylase (Creon Dr 12,000 Units) 2 cap PO TID [facility] Last Admin: 12/28/17 20:51 Dose: 2 cap Bisacodyl (Dulcolax) 10 mg PO DAILY PRN PRN Reason: Constipation Bumetanide (Bumex) 1 mg PO DAILY [facility] Last Admin: 12/28/17 09:02 Dose: 1 mg Diphenhydramine HCl (Benadryl) 25 mg IVPUSH Q4H PRN PRN Reason: Itching Docusate Sodium (Colace) 100 mg PO BID PRN PRN Reason: Constipation Last Admin: 12/25/17 08:51 Dose: 100 mg Enoxaparin Sodium (Lovenox) 30 mg SUBCUT DAILY [facility] Last Admin: 12/28/17 09:03 Dose: 30 mg Dextrose/Sodium Chloride (Dextrose 5%-Normal Saline) 1,000 mls @ 125 mls/hr IV ASDIRECTED [facility] Last Admin: 12/29/17 05:37 Dose: 125 mls/hr Piperacillin Sod/Tazobactam (Sod 2.25 gm/ Sodium Chloride) 50 mls @ 100 mls/hr IV Q6H [facility] Last Admin: 12/29/17 05:30 Dose: 100 mls/hr Insulin Aspart (Novolog) 25 unit SUBCUT BID@1200,1730 [facility] Last Admin: 12/28/17 18:47 Dose: Not Given Insulin Detemir (Levemir) 25 unit SUBCUT BID [facility] Last Admin: 12/28/17 20:54 Dose: 25 units Lactulose (Chronulac) 10 gm PO QID PRN PRN Reason: Gas Last Admin: 12/25/17 18:44 Dose: 10 gm Magnesium Hydroxide (Milk Of Magnesia) 30 ml PO BID PRN PRN Reason: Constipation Metoprolol Tartrate (Lopressor) 12.5 mg PO BID [facility] Last Admin: 12/28/17 20:50 Dose: 12.5 mg Morphine Sulfate (Morphine) 2 mg IVPUSH Q2H PRN PRN Reason: Pain Last Admin: 12/24/17 12:25 Dose: 2 mg Multi-Ingred Cream/Lotion/Oil/Oint (Kerodex 71 Crm) 60 gm TOP DAILY PRN PRN Reason: Inflammation Naloxone HCl (Narcan) 0.1 mg IVPUSH ONETIME PRN PRN Reason: Oversedation Ondansetron HCl (Zofran) 8 mg IVPUSH Q4H PRN PRN Reason: Nausea/Vomiting Oxycodone HCl (Oxycodone) 5 mg PO Q4H PRN PRN Reason: Pain Pantoprazole Sodium (Protonix) 40 mg PO ACBREAKFAST [facility] Last Admin: 12/28/17 06:30 Dose: 40 mg Rifaximin (Xifaxan) 550 mg PO BID [facility] Last Admin: 12/28/17 20:51 Dose: 550 mg Senna (Senna) 8.6 mg PO BID PRN PRN Reason: Constipation Sodium Chloride (Saline Flush) 10 ml FLUSH DAILY [facility] Last Admin: 12/28/17 09:25 Dose: 10 ml Spironolactone (Aldactone) 12.5 mg PO BID [facility] Last Admin: 12/28/17 20:51 Dose: 12.5 mg Tacrolimus (Prograf) 0.5 mg PO BID [facility] Last Admin: 12/28/17 20:51 Dose: 0.5 mg Torsemide (Demadex) 20 mg PO DAILY [facility] Last Admin: 12/28/17 09:02 Dose: 20 mg Tramadol HCl (Ultram) 100 mg PO Q6H PRN PRN Reason: Pain Last Admin: 12/28/17 20:05 Dose: 100 mg Triamcinolone Acetonide (Triamcinolone Acetonide 0.1% Crm) 0 gm TOP BID PRN PRN Reason: Rash Warfarin Sodium (Coumadin) 3 mg PO DAILY@1300 [facility] Last Admin: 12/28/17 13:06 Dose: 3 mg Zolpidem Tartrate (Ambien) 5 mg PO BEDTIME PRN PRN Reason: Sleep Discontinued Medications Acetaminophen (Tylenol Extra Strength) 1,000 mg PO ONETIME ONE Stop: 12/24/17 06:01 Last Admin: 12/24/17 06:55 Dose: 1,000 mg Allopurinol (Zyloprim) 100 mg PO ASDIRECTED [facility] Bupivacaine HCl/Dextrose (Marcaine 0.75% Spinal) Confirm Administered Dose 2 ml .ROUTE .STK-MED ONE Stop: 12/24/17 07:24 Tranexamic Acid 3,000 mg/ (Sodium Chloride 100 ml) 0 mg TOP ASDIRECTED [facility] Stop: 12/24/17 07:46 Last Admin: 12/24/17 09:00 Dose: 100 bag Ropivacaine 49.25 ml/Epinephrine HCl 0.5 mg/Clonidine HCl 80 mcg/ Sodium Chloride 48.45 ml 0 ml INJECT ONETIME ONE Stop: 12/24/17 07:46 Last Admin: 12/24/17 09:05 Dose: 90 ml Enoxaparin Sodium (Lovenox) 40 mg SUBCUT DAILY [facility] Last Admin: 12/26/17 08:07 Dose: 40 mg Fentanyl (Sublimaze) Confirm Administered Dose 100 mcg .ROUTE .[facility] ONE Stop: 12/24/17 07:24 Fentanyl (Sublimaze) 50 mcg IVPUSH ONETIME ONE Stop: 12/24/17 10:59 Last Admin: 12/24/17 11:03 Dose: 50 mcg Gentamicin Sulfate (Gentamicin) Confirm Administered Dose 240 mg .ROUTE .[facility] ONE Stop: 12/24/17 06:47 Last Admin: 12/24/17 09:08 Dose: 240 mg Hydroxyzine HCl (Vistaril) 50 mg IM ONETIME ONE Stop: 12/24/17 11:00 Last Admin: 12/24/17 11:08 Dose: 50 mg Cefazolin Sodium/Dextrose 2 gm (/ Premix) 50 mls @ 100 mls/hr IV ONETIME ONE Stop: 12/24/17 07:59 Last Admin: 12/24/17 08:58 Dose: 100 mls/hr Lactated Ringer's (Ringers, Lactated) 1,000 mls @ 100 mls/hr IV ASDIRECTED [facility] Last Admin: 12/24/17 06:56 Dose: 100 mls/hr Lactated Ringer's (Ringers, Lactated) Confirm Administered Dose 1,000 mls @ as directed .ROUTE .[facility] ONE Stop: 12/24/17 08:59 Lactated Ringer's (Ringers, Lactated) 1,000 mls @ 100 mls/hr IV ASDIRECTED [facility] Cefazolin Sodium/Dextrose 2 gm (/ Premix) 50 mls @ 100 mls/hr IV Q8H [facility] Stop: 12/26/17 04:29 Last Admin: 12/26/17 03:25 Dose: 100 mls/hr Lactulose (Chronulac) 10 gm PO QID [facility] Stop: 12/25/17 11:06 Last Admin: 12/25/17 11:18 Dose: 10 gm Lactulose (Chronulac) 10 gm PO QID [facility] Last Admin: 12/28/17 11:20 Dose: Not Given Midazolam HCl (Versed 1 Mg/Ml) Confirm Administered Dose 2 mg .ROUTE .STK-MED ONE Stop: 12/24/17 07:24 Oxycodone HCl (Oxycodone) 10 mg PO Q4H PRN PRN Reason: Pain Last Admin: 12/25/17 08:53 Dose: 10 mg Povidone Iodine (Betadine 10% Soln) Confirm Administered Dose 1 ml .ROUTE .STK- MED ONE Stop: 12/24/17 06:47 Last Admin: 12/24/17 09:08 Dose: 118 ml Propofol (Diprivan 20 Ml) Confirm Administered Dose 200 mg .ROUTE .STK-MED ONE Stop: 12/24/17 07:24 Propofol (Diprivan 20 Ml) Confirm Administered Dose 200 mg .ROUTE .STK-MED ONE Stop: 12/24/17 08:55 Propofol (Diprivan 20 Ml) Confirm Administered Dose 200 mg .ROUTE .STK-MED ONE Stop: 12/24/17 09:39 Propofol (Diprivan 20 Ml) Confirm Administered Dose 200 mg .ROUTE .STK-MED ONE Stop: 12/24/17 10:05 Scopolamine (Transderm-Scop) 1.5 mg TOP Q72H [facility] Stop: 12/26/17 05:00 Last Admin: 12/24/17 06:55 Dose: 1.5 mg Warfarin Sodium (Coumadin) 2 mg PO DAILY@1300 [facility] Last Admin: 12/27/17 12:18 Dose: 2 mg - Exam HEENT: Pupils Equal, Pupils Reactive, EOMI, Mucous Membr. Moist/Rand Neck: Supple Lungs: Clear to Auscultation, Normal Respiratory Effort Cardiovascular: Irregular Rhythm GI/Abdominal Exam: Normal Bowel Sounds, Soft, Non-Tender, No Organomegaly, No Distention, No Abnormal Bruit Extremities: Joint Swelling, Redness Peripheral Pulses: 1+: Radial (L), Radial (R) Skin: Warm, Dry Wound/Incisions: Healing Well Psy/Mental Status: Alert - Problem List Review Problem List Initiated/Reviewed/Updated: Yes - My Orders Last 24 Hours: My Active Orders 12/28/17 13:00 Warfarin [Coumadin] 3 mg PO DAILY@1300 12/28/17 22:45 CULTURE BLOOD [BC] Stat 12/28/17 22:50 CULTURE BLOOD [BC] Stat 12/28/17 23:00 Piperacillin/Tazobactam [Zosyn] 2.25 gm Sodium Chloride 0.9% [Normal Saline] 50 ml IV Q6H 12/29/17 11:30 GLUCOSE POC LAB TO COLLECT [POC] QIDACANDBED 12/29/17 16:30 GLUCOSE POC LAB TO COLLECT [POC] QIDACANDBED 12/29/17 21:00 GLUCOSE POC LAB TO COLLECT [POC] QIDACANDBED 12/30/17 05:11 INR,PT,PROTHROMBIN TIME [COAG] DAILY 12/31/17 05:11 INR,PT,PROTHROMBIN TIME [COAG] DAILY 01/01/18 05:11 INR,PT,PROTHROMBIN TIME [COAG] DAILY 01/02/18 05:11 INR,PT,PROTHROMBIN TIME [COAG] DAILY - Assessment Assessment:: #1. Osteoarthritis of knees: S/P surgery/ He still running a low-grade fever of 99.7. Yesterday evening he did spike a fever and had increased redness of his knee and started him on Zosyn a decreased dose because his renal dysfunction. Cultures are pending.. #2. DM II. Will watch Blood sugar he is on a sliding scale. #3. CRF: Will follow as needed. Creat 4.5 as of yesterday. His eGFR is 13! If this continues he'll need to be transferred for dialysis. His BUN was also elevated up to 67 had been 55 and 48 previously. I will repeat kidney functions this morning. #4. S/P Liver transplant. Mentally not stable. #5. Atrial Fib.: Chronic and stable. #6. HTN: Blood pressure good control 119/40 I am concerned about the elevation of temperature and the redness in the knee. - Plan Plan:: assessment:postoperative day 0 right total knee arthroplasty Plan:PT/OT/Pain control Doing much better today. Had low grade fever and increased wbc. Dr. Champion aware. Finishing third dose of ancef. Will DC when ok with Dr. Champion with three week fu.
[2017-12-29] MEDS: traMADol 50 MG Tab PO PRN ×2 (08:22→20:53)
[2017-12-29] MEDS: Enoxaparin 30 MG/0.3 ML Syringe SUBCUT SCH (08:23)
[2017-12-29] MEDS: Amylase/Lipase/Protease 12,000 Unit Cap.CR PO SCH ×3 (08:24→20:53)
[2017-12-29] MEDS: Pantoprazole 40 MG Tab.CR PO SCH (08:24)
[2017-12-29] MEDS: Torsemide 20 MG Tab PO SCH (08:25)
[2017-12-29] MEDS: Insulin Detemir 100 Units/ML 3 ML Pen SUBCUT SCH ×2 (08:25→20:54)
[2017-12-29] MEDS: Bumetanide 1 MG Tab PO SCH (08:25)
[2017-12-29] MEDS: Metoprolol Tartrate 25 MG Tab PO SCH ×2 (08:26→20:56)
[2017-12-29] MEDS: Rifaximin 550 MG Tab PO SCH ×2 (08:27→20:56)
[2017-12-29] MEDS: amLODIPine 10 MG Tab PO SCH (08:27)
[2017-12-29] MEDS: Spironolactone 25 MG Tab PO SCH ×2 (08:28→20:53)
[2017-12-29] MEDS: Tacrolimus 0.5 MG Cap PO SCH ×2 (08:28→20:55)
[2017-12-29] MEDS: Sodium Chloride 0.9% 10 ML Syringe FLUSH SCH (08:29)
[2017-12-29] MEDS: Allopurinol 100 MG Tab PO SCH (08:29)
[2017-12-29] MEDS: Sodium Chloride 0.9% 1,000 ML IV SCH ×2 (10:55→19:00)
[2017-12-29] MEDS: Insulin Aspart 100 Units/ML 3 ML Pen SUBCUT SCH ×5 (12:54→20:49)
[2017-12-29] MEDS ORDERED: Sodium Chloride 0.9% 10 ML Syringe FLUSH SCH (13:00)
[2017-12-30] MEDS: Piperacillin/Tazobactam 2.25 GM in Sodium Chloride 0.9% 50 ML IV SCH ×4 (04:08→23:12)
[2017-12-30] MEDS: Sodium Chloride 0.9% 1,000 ML IV SCH ×3 (04:09→21:09)
[2017-12-30] MEDS: Pantoprazole 40 MG Tab.CR PO SCH (07:41)
[2017-12-30] MEDS: traMADol 50 MG Tab PO PRN (08:03)
[2017-12-30] MEDS: Insulin Aspart 100 Units/ML 3 ML Pen SUBCUT SCH ×3 (08:04→21:11)
[2017-12-30] MEDS: Metoprolol Tartrate 25 MG Tab PO SCH ×2 (08:31→21:12)
[2017-12-30] MEDS: Bumetanide 1 MG Tab PO SCH (08:31)
[2017-12-30] MEDS: Amylase/Lipase/Protease 12,000 Unit Cap.CR PO SCH ×3 (08:31→21:10)
[2017-12-30] MEDS: Spironolactone 25 MG Tab PO SCH ×2 (08:31→21:15)
[2017-12-30] MEDS: Torsemide 20 MG Tab PO SCH (08:32)
[2017-12-30] MEDS: Enoxaparin 30 MG/0.3 ML Syringe SUBCUT SCH (08:32)
[2017-12-30] MEDS: amLODIPine 10 MG Tab PO SCH (08:32)
[2017-12-30] MEDS: Rifaximin 550 MG Tab PO SCH ×2 (08:32→21:15)
[2017-12-30] MEDS: Insulin Detemir 100 Units/ML 3 ML Pen SUBCUT SCH ×2 (08:38→21:16)
[2017-12-30] MEDS: Tacrolimus 0.5 MG Cap PO SCH ×2 (10:05→21:15)
--- NOTE | 2017-12-30 16:16 | PCM.PN ---
- General Info Date of Service: 12/30/17 Admission Dx/Problem (Free Text): His pain is controlled but he has generalized weakness yet and will need to go to a alf for further care. He'll be discharged tomorrow. Functional Status: Reports: Pain Controlled - Review of Systems General: Reports: Weakness, Fatigue HEENT: Reports: No Symptoms Pulmonary: Reports: Shortness of Breath Cardiovascular: Reports: No Symptoms Gastrointestinal: Reports: No Symptoms Musculoskeletal: Reports: Joint Pain, Joint Swelling Neurological: Reports: No Symptoms Psychiatric: Reports: No Symptoms - Patient Data Vitals - Most Recent: Last Vital Signs Temp 97.3 F 12/30/17 14:48 Pulse 113 H 12/30/17 14:48 Resp 18 12/30/17 14:48 BP 137/57 L 12/30/17 14:48 Pulse Ox 98 12/30/17 14:48 Weight - Most Recent: 235 lb I&O - Last 24 Hours: Intake & Output 12/30/17 12/30/17 12/30/17 06:59 14:59 22:59 Intake Total 1224 50 Output Total 400 Balance 824 50 Lab Results Last 24 Hours: Laboratory Results - last 24 hr 12/30/17 12/30/17 Range/Units 05:30 06:09 PT 32.2 H (9.5-12.0) sec INR 2.88 H (0.80-1.20) Sodium 140 (140-148) mmol/L Potassium 3.9 (3.6-5.2) mmol/L Chloride 106 (100-108) mmol/L Carbon Dioxide 19 L (21-32) mmol/L Anion Gap 18.9 H (5.0-14.0) mmol/L BUN 61 H (7-18) mg/dL Creatinine 4.3 H* (0.8-1.3) mg/dL Est Cr Clr Drug Dosing 15.50 mL/min Estimated GFR (MDRD) 13 L (>60) Glucose 46 L* (74-106) mg/dL Calcium 8.6 (8.5-10.1) mg/dL [place] Results Last 24 Hours: Microbiology 12/28/17 22:50 Aerobic Blood Culture - Preliminary Blood NO GROWTH AFTER 1 DAY Anaerobic Blood Culture - Preliminary NO GROWTH AFTER 1 DAY 12/28/17 22:45 Aerobic Blood Culture - Preliminary Blood NO GROWTH AFTER 1 DAY Anaerobic Blood Culture - Preliminary NO GROWTH AFTER 1 DAY Med Orders - Current: Current Medications Al Hydroxide/Mg Hydroxide (Mag-Al Plus) 30 ml PO Q4H PRN PRN Reason: Constipation Allopurinol (Zyloprim) 100 mg PO Q48H [facility] Last Admin: 12/29/17 08:29 Dose: 100 mg Amlodipine Besylate (Norvasc) 10 mg PO DAILY [facility] Last Admin: 12/30/17 08:32 Dose: 10 mg Lipase/Protease/Amylase (Creon Dr 12,000 Units) 2 cap PO TID [facility] Last Admin: 12/30/17 08:31 Dose: 2 cap Bisacodyl (Dulcolax) 10 mg PO DAILY PRN PRN Reason: Constipation Bumetanide (Bumex) 1 mg PO DAILY [facility] Last Admin: 12/30/17 08:31 Dose: 1 mg Diphenhydramine HCl (Benadryl) 25 mg IVPUSH Q4H PRN PRN Reason: Itching Docusate Sodium (Colace) 100 mg PO BID PRN PRN Reason: Constipation Last Admin: 12/25/17 08:51 Dose: 100 mg Enoxaparin Sodium (Lovenox) 30 mg SUBCUT DAILY [facility] Last Admin: 12/30/17 08:32 Dose: 30 mg Piperacillin Sod/Tazobactam (Sod 2.25 gm/ Sodium Chloride) 50 mls @ 100 mls/hr IV Q6H [facility] Last Admin: 12/30/17 10:52 Dose: 100 mls/hr Sodium Chloride (Normal Saline) 1,000 mls @ 125 mls/hr IV ASDIRECTED [facility] Last Admin: 12/30/17 12:46 Dose: 125 mls/hr Insulin Aspart (Novolog) 25 unit SUBCUT BID@1200,1730 [facility] Last Admin: 12/30/17 12:44 Dose: 25 units Insulin Aspart (Novolog) 0 unit SUBCUT BID [facility]; Protocol Last Admin: 12/30/17 08:04 Dose: Not Given Insulin Detemir (Levemir) 25 unit SUBCUT BID [facility] Last Admin: 12/30/17 08:38 Dose: 25 units Lactulose (Chronulac) 10 gm PO QID PRN PRN Reason: Gas Last Admin: 12/25/17 18:44 Dose: 10 gm Magnesium Hydroxide (Milk Of Magnesia) 30 ml PO BID PRN PRN Reason: Constipation Metoprolol Tartrate (Lopressor) 12.5 mg PO BID [facility] Last Admin: 12/30/17 08:31 Dose: 12.5 mg Morphine Sulfate (Morphine) 2 mg IVPUSH Q2H PRN PRN Reason: Pain Last Admin: 12/24/17 12:25 Dose: 2 mg Multi-Ingred Cream/Lotion/Oil/Oint (Kerodex 71 Crm) 60 gm TOP DAILY PRN PRN Reason: Inflammation Naloxone HCl (Narcan) 0.1 mg IVPUSH ONETIME PRN PRN Reason: Oversedation Ondansetron HCl (Zofran) 8 mg IVPUSH Q4H PRN PRN Reason: Nausea/Vomiting Oxycodone HCl (Oxycodone) 5 mg PO Q4H PRN PRN Reason: Pain Pantoprazole Sodium (Protonix) 40 mg PO ACBREAKFAST [facility] Last Admin: 12/30/17 07:41 Dose: 40 mg Rifaximin (Xifaxan) 550 mg PO BID [facility] Last Admin: 12/30/17 08:32 Dose: 550 mg Senna (Senna) 8.6 mg PO BID PRN PRN Reason: Constipation Sodium Chloride (Saline Flush) 10 ml FLUSH ASDIRECTED [facility] Spironolactone (Aldactone) 12.5 mg PO BID [facility] Last Admin: 12/30/17 08:31 Dose: 12.5 mg Tacrolimus (Prograf) 0.5 mg PO BID [facility] Last Admin: 12/30/17 10:05 Dose: 0.5 mg Torsemide (Demadex) 20 mg PO DAILY [facility] Last Admin: 12/30/17 08:32 Dose: 20 mg Tramadol HCl (Ultram) 100 mg PO Q6H PRN PRN Reason: Pain Last Admin: 12/30/17 08:03 Dose: 100 mg Triamcinolone Acetonide (Triamcinolone Acetonide 0.1% Crm) 0 gm TOP BID PRN PRN Reason: Rash Warfarin Sodium (Coumadin) 3 mg PO DAILY@1300 [facility] Last Admin: 12/30/17 12:45 Dose: 3 mg Zolpidem Tartrate (Ambien) 5 mg PO BEDTIME PRN PRN Reason: Sleep Discontinued Medications Acetaminophen (Tylenol Extra Strength) 1,000 mg PO ONETIME ONE Stop: 12/24/17 06:01 Last Admin: 12/24/17 06:55 Dose: 1,000 mg Allopurinol (Zyloprim) 100 mg PO ASDIRECTED [facility] Bupivacaine HCl/Dextrose (Marcaine 0.75% Spinal) Confirm Administered Dose 2 ml .ROUTE .STK-MED ONE Stop: 12/24/17 07:24 Tranexamic Acid 3,000 mg/ (Sodium Chloride 100 ml) 0 mg TOP ASDIRECTED [facility] Stop: 12/24/17 07:46 Last Admin: 12/24/17 09:00 Dose: 100 bag Ropivacaine 49.25 ml/Epinephrine HCl 0.5 mg/Clonidine HCl 80 mcg/ Sodium Chloride 48.45 ml 0 ml INJECT ONETIME ONE Stop: 12/24/17 07:46 Last Admin: 12/24/17 09:05 Dose: 90 ml Enoxaparin Sodium (Lovenox) 40 mg SUBCUT DAILY [facility] Last Admin: 12/26/17 08:07 Dose: 40 mg Fentanyl (Sublimaze) Confirm Administered Dose 100 mcg .ROUTE .STK-MED ONE Stop: 12/24/17 07:24 Fentanyl (Sublimaze) 50 mcg IVPUSH ONETIME ONE Stop: 12/24/17 10:59 Last Admin: 12/24/17 11:03 Dose: 50 mcg Gentamicin Sulfate (Gentamicin) Confirm Administered Dose 240 mg .ROUTE .STK- MED ONE Stop: 12/24/17 06:47 Last Admin: 12/24/17 09:08 Dose: 240 mg Hydroxyzine HCl (Vistaril) 50 mg IM ONETIME ONE Stop: 12/24/17 11:00 Last Admin: 12/24/17 11:08 Dose: 50 mg Cefazolin Sodium/Dextrose 2 gm (/ Premix) 50 mls @ 100 mls/hr IV ONETIME ONE Stop: 12/24/17 07:59 Last Admin: 12/24/17 08:58 Dose: 100 mls/hr Lactated Ringer's (Ringers, Lactated) 1,000 mls @ 100 mls/hr IV ASDIRECTED [facility] Last Admin: 12/24/17 06:56 Dose: 100 mls/hr Lactated Ringer's (Ringers, Lactated) Confirm Administered Dose 1,000 mls @ as directed .ROUTE .STK-MED ONE Stop: 12/24/17 08:59 Lactated Ringer's (Ringers, Lactated) 1,000 mls @ 100 mls/hr IV ASDIRECTED [facility] Cefazolin Sodium/Dextrose 2 gm (/ Premix) 50 mls @ 100 mls/hr IV Q8H [facility] Stop: 12/26/17 04:29 Last Admin: 12/26/17 03:25 Dose: 100 mls/hr Dextrose/Sodium Chloride (Dextrose 5%-Normal Saline) 1,000 mls @ 125 mls/hr IV ASDIRECTED [facility] Last Admin: 12/29/17 05:37 Dose: 125 mls/hr Insulin Aspart (Novolog) 0 unit SUBCUT QIDACANDBED [facility]; Protocol Last Admin: 12/29/17 17:40 Dose: Not Given Lactulose (Chronulac) 10 gm PO QID [facility] Stop: 12/25/17 11:06 Last Admin: 12/25/17 11:18 Dose: 10 gm Lactulose (Chronulac) 10 gm PO QID [facility] Last Admin: 12/28/17 11:20 Dose: Not Given Midazolam HCl (Versed 1 Mg/Ml) Confirm Administered Dose 2 mg .ROUTE .STK-MED ONE Stop: 12/24/17 07:24 Oxycodone HCl (Oxycodone) 10 mg PO Q4H PRN PRN Reason: Pain Last Admin: 12/25/17 08:53 Dose: 10 mg Povidone Iodine (Betadine 10% Soln) Confirm Administered Dose 1 ml .ROUTE .STK- MED ONE Stop: 12/24/17 06:47 Last Admin: 12/24/17 09:08 Dose: 118 ml Propofol (Diprivan 20 Ml) Confirm Administered Dose 200 mg .ROUTE .STK-MED ONE Stop: 12/24/17 07:24 Propofol (Diprivan 20 Ml) Confirm Administered Dose 200 mg .ROUTE .STK-MED ONE Stop: 12/24/17 08:55 Propofol (Diprivan 20 Ml) Confirm Administered Dose 200 mg .ROUTE .STK-MED ONE Stop: 12/24/17 09:39 Propofol (Diprivan 20 Ml) Confirm Administered Dose 200 mg .ROUTE .STK-MED ONE Stop: 12/24/17 10:05 Scopolamine (Transderm-Scop) 1.5 mg TOP Q72H [facility] Stop: 12/26/17 05:00 Last Admin: 12/24/17 06:55 Dose: 1.5 mg Sodium Chloride (Saline Flush) 10 ml FLUSH DAILY [facility] Last Admin: 12/29/17 08:29 Dose: Not Given Warfarin Sodium (Coumadin) 2 mg PO DAILY@1300 [facility] Last Admin: 12/27/17 12:18 Dose: 2 mg - Exam General: Alert, Oriented HEENT: Pupils Equal, Pupils Reactive, EOMI, Mucous Membr. Moist/[place] Neck: Supple Lungs: Clear to Auscultation, Normal Respiratory Effort Cardiovascular: Irregular Rhythm GI/Abdominal Exam: Normal Bowel Sounds Extremities: Pedal Edema, Redness, Other (There is significant redness but there is no increase in temperature.) Peripheral Pulses: 1+: Radial (L), Radial (R) Skin: Dry, Intact Wound/Incisions: Healing Well Neurological: No New Focal Deficit Psy/Mental Status: Alert, Normal Affect, Normal Mood - Problem List Review Problem List Initiated/Reviewed/Updated: Yes - My Orders Last 24 Hours: My Active Orders 12/29/17 21:00 Insulin Aspart [NovoLOG] See Dose Instructions SUBCUT BID 12/30/17 16:30 GLUCOSE POC LAB TO COLLECT [POC] QIDACANDBED 12/30/17 21:00 GLUCOSE POC LAB TO COLLECT [POC] QIDACANDBED 12/31/17 05:00 CBC W/O DIFF,HEMOGRAM [HEME] Routine COMPREHENSIVE METABOLIC PN,CMP [CHEM] Routine 12/31/17 05:11 INR,PT,PROTHROMBIN TIME [COAG] DAILY 01/01/18 05:11 INR,PT,PROTHROMBIN TIME [COAG] DAILY 01/02/18 05:11 INR,PT,PROTHROMBIN TIME [COAG] DAILY - Assessment Assessment:: #1. Osteoarthritis of knees: S/P surgery. He remains afebrile today at 97.3. His pulse is slightly elevated 113. Blood pressure is good control. The knee is red but is not hot I feel that he needs 1 more days of antibiotic and will discharge her to the alf tomorrow. #2. DM II. Will watch Blood sugar and adjust insulin as needed. His blood sugar has been improved control it was low again this morning but then it came right up with medication. #3. CRF: Will follow as needed. Creat 4.3 was 4.5 yesterday. His BUN is 61 down from 66 yesterday. This is stable value for him as was 3.67 last month. His kidney function is of concern and he does have a telegraph office manager that he's been seeing. #4. S/P Liver transplant. Mentally not stable. #5. Atrial Fib.: Chronic and stable. #6. HTN: Blood pressure good control 137/57 - Plan Plan:: assessment:postoperative day 0 right total knee arthroplasty Plan:PT/OT/Pain control Doing much better today. Had low grade fever and increased wbc. Dr. Champion aware. Finishing third dose of ancef. Will DC when ok with Dr. Champion with three week fu.
[2017-12-30] MEDS ORDERED: Insulin Aspart 100 Units/ML 3 ML Pen SUBCUT SCH (17:30)
[2017-12-31] MEDS: Sodium Chloride 0.9% 1,000 ML IV SCH (05:11)
[2017-12-31] MEDS: Piperacillin/Tazobactam 2.25 GM in Sodium Chloride 0.9% 50 ML IV SCH (05:12)
[2017-12-31] MEDS: Pantoprazole 40 MG Tab.CR PO SCH (07:18)
--- NOTE | 2017-12-31 07:31 | PCM.PN ---
- General Info Date of Service: 12/31/17 Subjective Update: He states he is feeling good and is willing to go the [facility] for rehab. Functional Status: Reports: Pain Controlled - Review of Systems General: Reports: Weakness HEENT: Reports: No Symptoms Pulmonary: Reports: No Symptoms Cardiovascular: Reports: Dyspnea on Exertion Gastrointestinal: Reports: No Symptoms Genitourinary: Reports: No Symptoms Musculoskeletal: Reports: Joint Pain Skin: Reports: No Symptoms Neurological: Reports: No Symptoms Psychiatric: Reports: No Symptoms - Patient Data Vitals - Most Recent: Last Vital Signs Temp 98.6 F 12/31/17 07:12 Pulse 59 L 12/31/17 07:12 Resp 16 12/31/17 07:12 BP 134/46 L 12/31/17 07:12 Pulse Ox 97 12/31/17 07:12 Weight - Most Recent: 235 lb I&O - Last 24 Hours: Intake & Output 12/30/17 12/31/17 12/31/17 22:59 06:59 14:59 Intake Total 2198 1843 Output Total 400 775 Balance 1798 1068 Lab Results Last 24 Hours: Laboratory Results - last 24 hr 12/30/17 12/31/17 12/31/17 Range/Units 05:30 04:45 04:45 WBC 9.6 (4.5-11.0) K/uL RBC 2.84 L (4.30-5.90) M/uL Hgb 9.2 L (12.0-15.0) g/dL Hct 29.1 L (40.0-54.0) % MCV 103 H (80-98) fL MCH 32 H (27-31) pg MCHC 32 (32-36) % Plt Count 362 (150-400) K/uL PT 45.1 H (9.5-12.0) sec INR 3.98 H (0.80-1.20) Sodium 140 (140-148) mmol/L Potassium 3.9 (3.6-5.2) mmol/L Chloride 106 (100-108) mmol/L Carbon Dioxide 19 L (21-32) mmol/L Anion Gap 18.9 H (5.0-14.0) mmol/L BUN 61 H (7-18) mg/dL Creatinine 4.3 H* (0.8-1.3) mg/dL Est Cr Clr Drug Dosing 15.50 mL/min Estimated GFR (MDRD) 13 L (>60) Glucose 46 L* (74-106) mg/dL Calcium 8.6 (8.5-10.1) mg/dL Total Bilirubin (0.2-1.0) mg/dL AST (15-37) U/L ALT (12-78) U/L Alkaline Phosphatase (46-116) U/L Total Protein (6.4-8.2) g/dL Albumin (3.4-5.0) g/dL Globulin (2.3-3.5) g/dL Albumin/Globulin Ratio (1.2-2.2) 12/31/17 Range/Units 04:45 WBC (4.5-11.0) K/uL RBC (4.30-5.90) M/uL Hgb (12.0-15.0) g/dL Hct (40.0-54.0) % MCV (80-98) fL MCH (27-31) pg MCHC (32-36) % Plt Count (150-400) K/uL PT (9.5-12.0) sec INR (0.80-1.20) Sodium 138 L (140-148) mmol/L Potassium 4.0 (3.6-5.2) mmol/L Chloride 107 (100-108) mmol/L Carbon Dioxide 20 L (21-32) mmol/L Anion Gap 15.0 H (5.0-14.0) mmol/L BUN 58 H (7-18) mg/dL Creatinine 4.1 H* (0.8-1.3) mg/dL Est Cr Clr Drug Dosing 16.26 mL/min Estimated GFR (MDRD) 14 L (>60) Glucose 160 H (74-106) mg/dL Calcium 8.3 L (8.5-10.1) mg/dL Total Bilirubin 1.0 (0.2-1.0) mg/dL AST 22 (15-37) U/L ALT 11 L (12-78) U/L Alkaline Phosphatase 230 H (46-116) U/L Total Protein 6.0 L (6.4-8.2) g/dL Albumin 1.9 L (3.4-5.0) g/dL Globulin 4.1 H (2.3-3.5) g/dL Albumin/Globulin Ratio 0.5 L (1.2-2.2) [place] Results Last 24 Hours: Microbiology 12/28/17 22:50 Aerobic Blood Culture - Preliminary Blood NO GROWTH AFTER 2 DAYS Anaerobic Blood Culture - Preliminary NO GROWTH AFTER 2 DAYS 12/28/17 22:45 Aerobic Blood Culture - Preliminary Blood NO GROWTH AFTER 2 DAYS Anaerobic Blood Culture - Preliminary NO GROWTH AFTER 2 DAYS Med Orders - Current: Current Medications Al Hydroxide/Mg Hydroxide (Mag-Al Plus) 30 ml PO Q4H PRN PRN Reason: Constipation Allopurinol (Zyloprim) 100 mg PO Q48H [facility] Last Admin: 12/29/17 08:29 Dose: 100 mg Amlodipine Besylate (Norvasc) 10 mg PO DAILY [facility] Last Admin: 12/30/17 08:32 Dose: 10 mg Lipase/Protease/Amylase (Creon Dr 12,000 Units) 2 cap PO TID [facility] Last Admin: 12/30/17 21:10 Dose: 2 cap Bisacodyl (Dulcolax) 10 mg PO DAILY PRN PRN Reason: Constipation Bumetanide (Bumex) 1 mg PO DAILY [facility] Last Admin: 12/30/17 08:31 Dose: 1 mg Diphenhydramine HCl (Benadryl) 25 mg IVPUSH Q4H PRN PRN Reason: Itching Docusate Sodium (Colace) 100 mg PO BID PRN PRN Reason: Constipation Last Admin: 12/25/17 08:51 Dose: 100 mg Enoxaparin Sodium (Lovenox) 30 mg SUBCUT DAILY [facility] Last Admin: 12/30/17 08:32 Dose: 30 mg Piperacillin Sod/Tazobactam (Sod 2.25 gm/ Sodium Chloride) 50 mls @ 100 mls/hr IV Q6H [facility] Last Admin: 12/31/17 05:12 Dose: 100 mls/hr Insulin Aspart (Novolog) 0 unit SUBCUT BID [facility]; Protocol Last Admin: 12/30/17 21:11 Dose: Not Given Insulin Aspart (Novolog) 20 unit SUBCUT BID@1200,1730 [facility] Last Admin: 12/30/17 17:11 Dose: Not Given Insulin Detemir (Levemir) 25 unit SUBCUT BID [facility] Last Admin: 12/30/17 21:16 Dose: 25 units Lactulose (Chronulac) 10 gm PO QID PRN PRN Reason: Gas Last Admin: 12/25/17 18:44 Dose: 10 gm Magnesium Hydroxide (Milk Of Magnesia) 30 ml PO BID PRN PRN Reason: Constipation Metoprolol Tartrate (Lopressor) 12.5 mg PO BID [facility] Last Admin: 12/30/17 21:12 Dose: 12.5 mg Morphine Sulfate (Morphine) 2 mg IVPUSH Q2H PRN PRN Reason: Pain Last Admin: 12/24/17 12:25 Dose: 2 mg Multi-Ingred Cream/Lotion/Oil/Oint (Kerodex 71 Crm) 60 gm TOP DAILY PRN PRN Reason: Inflammation Naloxone HCl (Narcan) 0.1 mg IVPUSH ONETIME PRN PRN Reason: Oversedation Ondansetron HCl (Zofran) 8 mg IVPUSH Q4H PRN PRN Reason: Nausea/Vomiting Oxycodone HCl (Oxycodone) 5 mg PO Q4H PRN PRN Reason: Pain Pantoprazole Sodium (Protonix) 40 mg PO ACBREAKFAST [facility] Last Admin: 12/31/17 07:18 Dose: 40 mg Rifaximin (Xifaxan) 550 mg PO BID [facility] Last Admin: 12/30/17 21:15 Dose: 550 mg Senna (Senna) 8.6 mg PO BID PRN PRN Reason: Constipation Sodium Chloride (Saline Flush) 10 ml FLUSH ASDIRECTED [facility] Spironolactone (Aldactone) 12.5 mg PO BID [facility] Last Admin: 12/30/17 21:15 Dose: 12.5 mg Tacrolimus (Prograf) 0.5 mg PO BID [facility] Last Admin: 12/30/17 21:15 Dose: 0.5 mg Torsemide (Demadex) 20 mg PO DAILY [facility] Last Admin: 12/30/17 08:32 Dose: 20 mg Tramadol HCl (Ultram) 100 mg PO Q6H PRN PRN Reason: Pain Last Admin: 12/30/17 08:03 Dose: 100 mg Triamcinolone Acetonide (Triamcinolone Acetonide 0.1% Crm) 0 gm TOP BID PRN PRN Reason: Rash Warfarin Sodium (Coumadin) 3 mg PO DAILY@1300 [facility] Last Admin: 12/30/17 12:45 Dose: 3 mg Zolpidem Tartrate (Ambien) 5 mg PO BEDTIME PRN PRN Reason: Sleep Discontinued Medications Acetaminophen (Tylenol Extra Strength) 1,000 mg PO ONETIME ONE Stop: 12/24/17 06:01 Last Admin: 12/24/17 06:55 Dose: 1,000 mg Allopurinol (Zyloprim) 100 mg PO ASDIRECTED [facility] Bupivacaine HCl/Dextrose (Marcaine 0.75% Spinal) Confirm Administered Dose 2 ml .ROUTE .STK-MED ONE Stop: 12/24/17 07:24 Tranexamic Acid 3,000 mg/ (Sodium Chloride 100 ml) 0 mg TOP ASDIRECTED [facility] Stop: 12/24/17 07:46 Last Admin: 12/24/17 09:00 Dose: 100 bag Ropivacaine 49.25 ml/Epinephrine HCl 0.5 mg/Clonidine HCl 80 mcg/ Sodium Chloride 48.45 ml 0 ml INJECT ONETIME ONE Stop: 12/24/17 07:46 Last Admin: 12/24/17 09:05 Dose: 90 ml Enoxaparin Sodium (Lovenox) 40 mg SUBCUT DAILY [facility] Last Admin: 12/26/17 08:07 Dose: 40 mg Fentanyl (Sublimaze) Confirm Administered Dose 100 mcg .ROUTE .STK-MED ONE Stop: 12/24/17 07:24 Fentanyl (Sublimaze) 50 mcg IVPUSH ONETIME ONE Stop: 12/24/17 10:59 Last Admin: 12/24/17 11:03 Dose: 50 mcg Gentamicin Sulfate (Gentamicin) Confirm Administered Dose 240 mg .ROUTE .STK- MED ONE Stop: 12/24/17 06:47 Last Admin: 12/24/17 09:08 Dose: 240 mg Hydroxyzine HCl (Vistaril) 50 mg IM ONETIME ONE Stop: 12/24/17 11:00 Last Admin: 12/24/17 11:08 Dose: 50 mg Cefazolin Sodium/Dextrose 2 gm (/ Premix) 50 mls @ 100 mls/hr IV ONETIME ONE Stop: 12/24/17 07:59 Last Admin: 12/24/17 08:58 Dose: 100 mls/hr Lactated Ringer's (Ringers, Lactated) 1,000 mls @ 100 mls/hr IV ASDIRECTED [facility] Last Admin: 12/24/17 06:56 Dose: 100 mls/hr Lactated Ringer's (Ringers, Lactated) Confirm Administered Dose 1,000 mls @ as directed .ROUTE .STK-MED ONE Stop: 12/24/17 08:59 Lactated Ringer's (Ringers, Lactated) 1,000 mls @ 100 mls/hr IV ASDIRECTED [facility] Cefazolin Sodium/Dextrose 2 gm (/ Premix) 50 mls @ 100 mls/hr IV Q8H [facility] Stop: 12/26/17 04:29 Last Admin: 12/26/17 03:25 Dose: 100 mls/hr Dextrose/Sodium Chloride (Dextrose 5%-Normal Saline) 1,000 mls @ 125 mls/hr IV ASDIRECTED [facility] Last Admin: 12/29/17 05:37 Dose: 125 mls/hr Sodium Chloride (Normal Saline) 1,000 mls @ 125 mls/hr IV ASDIRECTED [facility] Last Admin: 12/31/17 05:11 Dose: 125 mls/hr Insulin Aspart (Novolog) 25 unit SUBCUT BID@1200,1730 [facility] Last Admin: 12/30/17 12:44 Dose: 25 units Insulin Aspart (Novolog) 0 unit SUBCUT QIDACANDBED [facility]; Protocol Last Admin: 12/29/17 17:40 Dose: Not Given Lactulose (Chronulac) 10 gm PO QID [facility] Stop: 12/25/17 11:06 Last Admin: 12/25/17 11:18 Dose: 10 gm Lactulose (Chronulac) 10 gm PO QID [facility] Last Admin: 12/28/17 11:20 Dose: Not Given Midazolam HCl (Versed 1 Mg/Ml) Confirm Administered Dose 2 mg .ROUTE .STK-MED ONE Stop: 12/24/17 07:24 Oxycodone HCl (Oxycodone) 10 mg PO Q4H PRN PRN Reason: Pain Last Admin: 12/25/17 08:53 Dose: 10 mg Povidone Iodine (Betadine 10% Soln) Confirm Administered Dose 1 ml .ROUTE .STK- MED ONE Stop: 12/24/17 06:47 Last Admin: 12/24/17 09:08 Dose: 118 ml Propofol (Diprivan 20 Ml) Confirm Administered Dose 200 mg .ROUTE .STK-MED ONE Stop: 12/24/17 07:24 Propofol (Diprivan 20 Ml) Confirm Administered Dose 200 mg .ROUTE .STK-MED ONE Stop: 12/24/17 08:55 Propofol (Diprivan 20 Ml) Confirm Administered Dose 200 mg .ROUTE .STK-MED ONE Stop: 12/24/17 09:39 Propofol (Diprivan 20 Ml) Confirm Administered Dose 200 mg .ROUTE .STK-MED ONE Stop: 12/24/17 10:05 Scopolamine (Transderm-Scop) 1.5 mg TOP Q72H [facility] Stop: 12/26/17 05:00 Last Admin: 12/24/17 06:55 Dose: 1.5 mg Sodium Chloride (Saline Flush) 10 ml FLUSH DAILY [facility] Last Admin: 12/29/17 08:29 Dose: Not Given Warfarin Sodium (Coumadin) 2 mg PO DAILY@1300 [facility] Last Admin: 12/27/17 12:18 Dose: 2 mg - Exam General: Alert, Oriented Neck: Supple Lungs: Clear to Auscultation, Normal Respiratory Effort Cardiovascular: Irregular Rhythm GI/Abdominal Exam: Normal Bowel Sounds, Soft, Non-Tender, No Organomegaly, No Distention, No Abnormal Bruit, No Mass, Pelvis Stable Extremities: Redness (The Right knee has redness but not hot to the touch. There is no drainage.) Peripheral Pulses: 1+: Radial (L), Radial (R) Skin: Warm, Dry Wound/Incisions: Healing Well, No Drainage Neurological: No New Focal Deficit Psy/Mental Status: Alert, Normal Affect, Normal Mood - Problem List Review Problem List Initiated/Reviewed/Updated: Yes - My Orders Last 24 Hours: My Active Orders 12/30/17 17:30 Insulin Aspart [NovoLOG] 20 unit SUBCUT BID@1200,1730 12/31/17 07:15 Convert IV to Saline Lock [OM.PC] Routine 12/31/17 07:30 GLUCOSE POC LAB TO COLLECT [POC] QIDACANDBED 12/31/17 11:30 GLUCOSE POC LAB TO COLLECT [POC] QIDACANDBED 12/31/17 16:30 GLUCOSE POC LAB TO COLLECT [POC] QIDACANDBED 12/31/17 21:00 GLUCOSE POC LAB TO COLLECT [POC] QIDACANDBED 01/01/18 05:11 INR,PT,PROTHROMBIN TIME [COAG] DAILY 01/02/18 05:11 INR,PT,PROTHROMBIN TIME [COAG] DAILY - Assessment Assessment:: #1. Osteoarthritis of knees: S/P surgery. He remains afebrile today at 98.6. His pulse is 75. Blood pressure is good control. The knee is red but is not hot. Will be going to the shelter today. #2. DM II. Will watch Blood sugar and adjust insulin as needed. His blood sugar has been improved control 160 this morning. I did adjust his insulin as he was low. #3. CRF: Will follow as needed. Creat 4.1 today with a BUN of 58. His kidney function is of concern and he does have a lace weaver that he's been seeing. #4. S/P Liver transplant. Mentally not stable. #5. Atrial Fib.: Chronic and stable. #6. HTN: Blood pressure good control 134/46 today. Will be going to the [facility] today. - Plan Plan:: assessment:postoperative day 0 right total knee arthroplasty Plan:PT/OT/Pain control Doing much better today. Had low grade fever and increased wbc. Dr. Champion aware. Finishing third dose of ancef. Will DC when ok with Dr. Champion with three week fu.
--- NOTE | 2017-12-31 07:33 | PCM.DCSUM1 ---
Discharge Summary - Hospital Course HPI Initial Comments: He has a history of DJD and had an arthoplasty of the right knee. Brief History: R knee primary osteoarthritis. Diagnosis: Stroke: No - Discharge Data Discharge Date: 12/31/17 Discharge Disposition: DC/Tfer to SNF 03 Condition: Good - Patient Summary/Data Operative Procedure(s) Performed: R TKA Consults: Consultations 12/24/17 10:17 Consult to Physician [CONS] Routine Consulting Provider: Gerry Champion Sr Courtesy Call Completed to Consulting Physician: Yes OT Evaluation and Treatment [CONS] Routine Please Evaluate and Treat. OT Reason for Consult: Strengthening This query below is only for informational purposes and is not editable. PT Evaluation and Treatment [CONS] Routine Please Evaluate and Treat. PT Reason for Consult: Strengthening This query below is only for informational purposes and is not editable. Respiratory Care Assess and Treatment [CONS] Routine Comment: Physician Instructions: Post-op Pneumonia Prevention Hospital Course: The surgery was routine and had a fever post op but no infection was documented. He does have CRF. He also has had DM on insulin and had low blood S. while in the hospital and the insulin was adjusted. He needs more PT and will be going to the [place] for therapy. - Patient Instructions Diet: Usual Diet as Tolerated Activity: Apply Ice, As Tolerated, Cough & Deep Breathe, No Strenuous Activities Driving: Do Not Drive Showering/Bathing: May Shower Wound/Incision Care: Keep Operative Site/Wound Site Clean and Dry, Change Dressing Daily Notify Provider of: Fever, Increased Pain, Swelling and Redness, Drainage, Nausea and/or Vomiting - Discharge Plan Prescriptions/Med Rec: Cefadroxil 500 mg PO BID 5 Days capsule oxyCODONE 5 mg PO Q8HR #90 tablet traMADol [Ultram] 100 mg PO Q6H PRN #90 tablet PRN Reason: Pain Home Medications: Home Meds Insulin Glarg,Human.Rec.Analog [Lantus Solostar] 25 units SUBCUT BID 12/21/14 [ History] Multivitamin with Minerals [Antioxidant Vitamin] 1 each PO DAILY 12/21/14 [ History] Tacrolimus 0.5 mg PO BID 12/21/14 [History] Triamcinolone Acetonide 1 film TP BID PRN 12/21/14 [History] amLODIPine Besylate [Amlodipine Besylate] 10 mg PO DAILY 12/21/14 [History] Insulin Aspart [Novolog Flexpen] 20 units SUBCUT BID@12,17 12/23/14 [History] Cholecalciferol (Vitamin D3) [Vitamin D3] 1 tab PO DAILY 02/03/15 [History] Acetaminophen [Acetaminophen Extra Strength] 500 mg PO BID PRN 11/29/17 [History ] Allopurinol [Zyloprim] 100 mg PO Q48H 11/29/17 [History] Amylase/Lipase/Protease [Nevaeh DR 24,000 Unit] 1 cap PO TID 11/29/17 [History] Bumetanide [Bumex] 1 mg PO DAILY 11/29/17 [History] Cholecalciferol (Vitamin D3) [Vitamin D3] 400 unit PO DAILY 11/29/17 [History] Hydrophilic Cream [Basle] 60 gm TP DAILY PRN 11/29/17 [History] Insulin Aspart [Novolog Flexpen] 25 units SQ BID 11/29/17 [History] Lactulose 10 gm PO QID PRN 11/29/17 [History] Metoprolol Tartrate 12.5 mg PO BID 11/29/17 [History] Omeprazole 20 mg PO DAILY 11/29/17 [History] Spironolactone [Aldactone] 12.5 mg PO BID 11/29/17 [History] Torsemide 20 mg PO DAILY 11/29/17 [History] Warfarin [Coumadin] 2 mg PO DAILY 11/29/17 [History] Rifaximin [Xifaxan] 550 mg PO BID 12/24/17 [History] oxyCODONE 5 mg PO Q8HR #90 tablet 12/26/17 [Rx] traMADol [Ultram] 100 mg PO Q6H PRN #90 tablet 12/26/17 [Rx] Cefadroxil 500 mg PO BID 5 Days capsule 12/31/17 [Rx] Insulin Aspart [NovoLOG] 20 unit SUBCUT BID@1200,1730 pen 12/31/17 [Rx] Warfarin [Coumadin] 3 mg PO DAILY@1300 tablet 12/31/17 [Rx] Zolpidem [Ambien] 5 mg PO BEDTIME PRN tablet 12/31/17 [Rx] Patient Handouts: Constipation, Adult, [id number], Hand Washing, Ndxd-[id number] Referrals: Dheeraj John DO [Physician] - 01/13/18 11:00 am - Discharge Summary/Plan Comment DC Time >30 min.: Yes - Patient Data Vitals - Most Recent: Last Vital Signs Temp 98.6 F 12/31/17 07:12 Pulse 59 L 12/31/17 07:12 Resp 16 12/31/17 07:12 BP 134/46 L 12/31/17 07:12 Pulse Ox 97 12/31/17 07:12 Weight - Most Recent: 235 lb I&O - Last 24 hours: Intake & Output 12/30/17 12/31/17 12/31/17 22:59 06:59 14:59 Intake Total 2198 1843 Output Total 400 775 Balance 1798 1068 Lab Results - Last 24 hrs: Laboratory Results - last 24 hr 12/31/17 12/31/17 12/31/17 Range/Units 04:45 04:45 04:45 WBC 9.6 (4.5-11.0) K/uL RBC 2.84 L (4.30-5.90) M/uL Hgb 9.2 L (12.0-15.0) g/dL Hct 29.1 L (40.0-54.0) % MCV 103 H (80-98) fL MCH 32 H (27-31) pg MCHC 32 (32-36) % Plt Count 362 (150-400) K/uL PT 45.1 H (9.5-12.0) sec INR 3.98 H (0.80-1.20) Sodium 138 L (140-148) mmol/L Potassium 4.0 (3.6-5.2) mmol/L Chloride 107 (100-108) mmol/L Carbon Dioxide 20 L (21-32) mmol/L Anion Gap 15.0 H (5.0-14.0) mmol/L BUN 58 H (7-18) mg/dL Creatinine 4.1 H* (0.8-1.3) mg/dL Est Cr Clr Drug Dosing 16.26 mL/min Estimated GFR (MDRD) 14 L (>60) Glucose 160 H (74-106) mg/dL Calcium 8.3 L (8.5-10.1) mg/dL Total Bilirubin 1.0 (0.2-1.0) mg/dL AST 22 (15-37) U/L ALT 11 L (12-78) U/L Alkaline Phosphatase 230 H (46-116) U/L Total Protein 6.0 L (6.4-8.2) g/dL Albumin 1.9 L (3.4-5.0) g/dL Globulin 4.1 H (2.3-3.5) g/dL Albumin/Globulin Ratio 0.5 L (1.2-2.2) KATYA Results - Last 24 hrs: Microbiology 12/28/17 22:50 Aerobic Blood Culture - Preliminary Blood NO GROWTH AFTER 2 DAYS Anaerobic Blood Culture - Preliminary NO GROWTH AFTER 2 DAYS 12/28/17 22:45 Aerobic Blood Culture - Preliminary Blood NO GROWTH AFTER 2 DAYS Anaerobic Blood Culture - Preliminary NO GROWTH AFTER 2 DAYS Med Orders - Current: Current Medications Al Hydroxide/Mg Hydroxide (Mag-Al Plus) 30 ml PO Q4H PRN PRN Reason: Constipation Allopurinol (Zyloprim) 100 mg PO Q48H [facility] Last Admin: 12/29/17 08:29 Dose: 100 mg Amlodipine Besylate (Norvasc) 10 mg PO DAILY [facility] Last Admin: 12/30/17 08:32 Dose: 10 mg Lipase/Protease/Amylase ([place]on Dr 12,000 Units) 2 cap PO TID [facility] Last Admin: 12/30/17 21:10 Dose: 2 cap Bisacodyl (Dulcolax) 10 mg PO DAILY PRN PRN Reason: Constipation Bumetanide (Bumex) 1 mg PO DAILY [facility] Last Admin: 12/30/17 08:31 Dose: 1 mg Diphenhydramine HCl (Benadryl) 25 mg IVPUSH Q4H PRN PRN Reason: Itching Docusate Sodium (Colace) 100 mg PO BID PRN PRN Reason: Constipation Last Admin: 12/25/17 08:51 Dose: 100 mg Enoxaparin Sodium (Lovenox) 30 mg SUBCUT DAILY [facility] Last Admin: 12/30/17 08:32 Dose: 30 mg Piperacillin Sod/Tazobactam (Sod 2.25 gm/ Sodium Chloride) 50 mls @ 100 mls/hr IV Q6H [facility] Last Admin: 12/31/17 05:12 Dose: 100 mls/hr Insulin Aspart (Novolog) 0 unit SUBCUT BID [facility]; Protocol Last Admin: 12/30/17 21:11 Dose: Not Given Insulin Aspart (Novolog) 20 unit SUBCUT BID@1200,1730 [facility] Last Admin: 12/30/17 17:11 Dose: Not Given Insulin Detemir (Levemir) 25 unit SUBCUT BID [facility] Last Admin: 12/30/17 21:16 Dose: 25 units Lactulose (Chronulac) 10 gm PO QID PRN PRN Reason: Gas Last Admin: 12/25/17 18:44 Dose: 10 gm Magnesium Hydroxide (Milk Of Magnesia) 30 ml PO BID PRN PRN Reason: Constipation Metoprolol Tartrate (Lopressor) 12.5 mg PO BID [facility] Last Admin: 12/30/17 21:12 Dose: 12.5 mg Morphine Sulfate (Morphine) 2 mg IVPUSH Q2H PRN PRN Reason: Pain Last Admin: 12/24/17 12:25 Dose: 2 mg Multi-Ingred Cream/Lotion/Oil/Oint (Kerodex 71 Crm) 60 gm TOP DAILY PRN PRN Reason: Inflammation Naloxone HCl (Narcan) 0.1 mg IVPUSH ONETIME PRN PRN Reason: Oversedation Ondansetron HCl (Zofran) 8 mg IVPUSH Q4H PRN PRN Reason: Nausea/Vomiting Oxycodone HCl (Oxycodone) 5 mg PO Q4H PRN PRN Reason: Pain Pantoprazole Sodium (Protonix) 40 mg PO ACBREAKFAST [facility] Last Admin: 12/31/17 07:18 Dose: 40 mg Rifaximin (Xifaxan) 550 mg PO BID [facility] Last Admin: 12/30/17 21:15 Dose: 550 mg Senna (Senna) 8.6 mg PO BID PRN PRN Reason: Constipation Sodium Chloride (Saline Flush) 10 ml FLUSH ASDIRECTED [facility] Spironolactone (Aldactone) 12.5 mg PO BID [facility] Last Admin: 12/30/17 21:15 Dose: 12.5 mg Tacrolimus (Prograf) 0.5 mg PO BID [facility] Last Admin: 12/30/17 21:15 Dose: 0.5 mg Torsemide (Demadex) 20 mg PO DAILY [facility] Last Admin: 12/30/17 08:32 Dose: 20 mg Tramadol HCl (Ultram) 100 mg PO Q6H PRN PRN Reason: Pain Last Admin: 12/30/17 08:03 Dose: 100 mg Triamcinolone Acetonide (Triamcinolone Acetonide 0.1% Crm) 0 gm TOP BID PRN PRN Reason: Rash Warfarin Sodium (Coumadin) 3 mg PO DAILY@1300 JOEY Last Admin: 12/30/17 12:45 Dose: 3 mg Zolpidem Tartrate (Ambien) 5 mg PO BEDTIME PRN PRN Reason: Sleep Discontinued Medications Acetaminophen (Tylenol Extra Strength) 1,000 mg PO ONETIME ONE Stop: 12/24/17 06:01 Last Admin: 12/24/17 06:55 Dose: 1,000 mg Allopurinol (Zyloprim) 100 mg PO ASDIRECTED [facility] Bupivacaine HCl/Dextrose (Marcaine 0.75% Spinal) Confirm Administered Dose 2 ml .ROUTE .STK-MED ONE Stop: 12/24/17 07:24 Tranexamic Acid 3,000 mg/ (Sodium Chloride 100 ml) 0 mg TOP ASDIRECTED [facility] Stop: 12/24/17 07:46 Last Admin: 12/24/17 09:00 Dose: 100 bag Ropivacaine 49.25 ml/Epinephrine HCl 0.5 mg/Clonidine HCl 80 mcg/ Sodium Chloride 48.45 ml 0 ml INJECT ONETIME ONE Stop: 12/24/17 07:46 Last Admin: 12/24/17 09:05 Dose: 90 ml Enoxaparin Sodium (Lovenox) 40 mg SUBCUT DAILY [facility] Last Admin: 12/26/17 08:07 Dose: 40 mg Fentanyl (Sublimaze) Confirm Administered Dose 100 mcg .ROUTE .STK-MED ONE Stop: 12/24/17 07:24 Fentanyl (Sublimaze) 50 mcg IVPUSH ONETIME ONE Stop: 12/24/17 10:59 Last Admin: 12/24/17 11:03 Dose: 50 mcg Gentamicin Sulfate (Gentamicin) Confirm Administered Dose 240 mg .ROUTE .STK- MED ONE Stop: 12/24/17 06:47 Last Admin: 12/24/17 09:08 Dose: 240 mg Hydroxyzine HCl (Vistaril) 50 mg IM ONETIME ONE Stop: 12/24/17 11:00 Last Admin: 12/24/17 11:08 Dose: 50 mg Cefazolin Sodium/Dextrose 2 gm (/ Premix) 50 mls @ 100 mls/hr IV ONETIME ONE Stop: 12/24/17 07:59 Last Admin: 12/24/17 08:58 Dose: 100 mls/hr Lactated Ringer's (Ringers, Lactated) 1,000 mls @ 100 mls/hr IV ASDIRECTED [facility] Last Admin: 12/24/17 06:56 Dose: 100 mls/hr Lactated Ringer's (Ringers, Lactated) Confirm Administered Dose 1,000 mls @ as directed .ROUTE .STK-MED ONE Stop: 12/24/17 08:59 Lactated Ringer's (Ringers, Lactated) 1,000 mls @ 100 mls/hr IV ASDIRECTED [facility] Cefazolin Sodium/Dextrose 2 gm (/ Premix) 50 mls @ 100 mls/hr IV Q8H JOEY Stop: 12/26/17 04:29 Last Admin: 12/26/17 03:25 Dose: 100 mls/hr Dextrose/Sodium Chloride (Dextrose 5%-Normal Saline) 1,000 mls @ 125 mls/hr IV ASDIRECTED [facility] Last Admin: 12/29/17 05:37 Dose: 125 mls/hr Sodium Chloride (Normal Saline) 1,000 mls @ 125 mls/hr IV ASDIRECTED [facility] Last Admin: 12/31/17 05:11 Dose: 125 mls/hr Insulin Aspart (Novolog) 25 unit SUBCUT BID@1200,1730 [facility] Last Admin: 12/30/17 12:44 Dose: 25 units Insulin Aspart (Novolog) 0 unit SUBCUT QIDACANDBED [facility]; Protocol Last Admin: 12/29/17 17:40 Dose: Not Given Lactulose (Chronulac) 10 gm PO QID STA Stop: 12/25/17 11:06 Last Admin: 12/25/17 11:18 Dose: 10 gm Lactulose (Chronulac) 10 gm PO QID JOEY Last Admin: 12/28/17 11:20 Dose: Not Given Midazolam HCl (Versed 1 Mg/Ml) Confirm Administered Dose 2 mg .ROUTE .STK-MED ONE Stop: 12/24/17 07:24 Oxycodone HCl (Oxycodone) 10 mg PO Q4H PRN PRN Reason: Pain Last Admin: 12/25/17 08:53 Dose: 10 mg Povidone Iodine (Betadine 10% Soln) Confirm Administered Dose 1 ml .ROUTE .STK- MED ONE Stop: 12/24/17 06:47 Last Admin: 12/24/17 09:08 Dose: 118 ml Propofol (Diprivan 20 Ml) Confirm Administered Dose 200 mg .ROUTE .STK-MED ONE Stop: 12/24/17 07:24 Propofol (Diprivan 20 Ml) Confirm Administered Dose 200 mg .ROUTE .STK-MED ONE Stop: 12/24/17 08:55 Propofol (Diprivan 20 Ml) Confirm Administered Dose 200 mg .ROUTE .STK-MED ONE Stop: 12/24/17 09:39 Propofol (Diprivan 20 Ml) Confirm Administered Dose 200 mg .ROUTE .STK-MED ONE Stop: 12/24/17 10:05 Scopolamine (Transderm-Scop) 1.5 mg TOP Q72H [facility] Stop: 12/26/17 05:00 Last Admin: 12/24/17 06:55 Dose: 1.5 mg Sodium Chloride (Saline Flush) 10 ml FLUSH DAILY [facility] Last Admin: 12/29/17 08:29 Dose: Not Given Warfarin Sodium (Coumadin) 2 mg PO DAILY@1300 [facility] Last Admin: 12/27/17 12:18 Dose: 2 mg Discharge Operative/Procedures - Procedures Performed Operations: r tka
[2017-12-31] MEDS: traMADol 50 MG Tab PO PRN (08:31)
[2017-12-31] MEDS: Enoxaparin 30 MG/0.3 ML Syringe SUBCUT SCH (08:32)
[2017-12-31] MEDS: Tacrolimus 0.5 MG Cap PO SCH (08:32)
[2017-12-31] MEDS: amLODIPine 10 MG Tab PO SCH (08:33)
[2017-12-31] MEDS: Amylase/Lipase/Protease 12,000 Unit Cap.CR PO SCH (08:33)
[2017-12-31] MEDS: Torsemide 20 MG Tab PO SCH (08:34)
[2017-12-31] MEDS: Spironolactone 25 MG Tab PO SCH (08:35)
[2017-12-31] MEDS: Bumetanide 1 MG Tab PO SCH (08:35)
[2017-12-31] MEDS: Metoprolol Tartrate 25 MG Tab PO SCH (08:36)
[2017-12-31] MEDS: Insulin Detemir 100 Units/ML 3 ML Pen SUBCUT SCH (08:37)
[2017-12-31 08:40] VITALS: BP 139/79
== END 2017-12-31 09:40 | disposition home or self-care (01) | DRG 470 ==
LOC: JP.MS 06:01 → JP.SDS 06:01 → EDSTATUS 09:15 → JP.MS 10:30 → UNDOADMOB 10:30 → JP.MS 13:12 → OBSVTOIN 12-25 13:12 → INTOOBSV 12-25 13:12 → UNDODISIN 12-31 09:40
PROVIDERS: ADMIT Orthopaedic Surgery; ATTEND Orthopaedic Surgery
PROC: 0SRC0J9 Replacement of Right Knee Joint with Synthetic Substitute, Cemented, Open Approach (ICD-10-PCS; principal; 2017-12-24)
DX: M17.0 Bilateral primary osteoarthritis of knee (principal); Z94.4 Liver transplant status; R50.82 Postprocedural fever; E11.22 Type 2 diabetes mellitus with diabetic chronic kidney disease; I12.9 Hypertensive chronic kidney disease with stage 1 through stage 4 chronic kidney disease, or unspecified chronic kidney disease; N18.9 Chronic kidney disease, unspecified; I48.2 Chronic atrial fibrillation; Z79.4 Long term (current) use of insulin; Z79.899 Other long term (current) drug therapy; Z88.8 Allergy status to other drugs, medicaments and biological substances; Z79.01 Long term (current) use of anticoagulants
CPT/HCPCS: 36415; 73560-26-RT; 73560-RT; 80048; 80053; 82140; 82962; 85025; 85027; 85610; 86850; 86900; 86901; 87040; 97110-GP; 97116-GP; 97161-GP; 97165-GO; 97530-GP; 97535-GP; A9270-GY; C1713; C1776; J0171; J0690; J0735; J1580; J1650; J2250; J2270; J2543; J2704; J2795; J3010; J3410; J7030; J7050; J7120

== ENCOUNTER 2019-03-21 14:08 | Emergency (ER) | payer MEDICARE, OTHER, SELFPAY ==
--- NOTE | 2019-03-21 14:43 | EDM.PDOC ---
ED HPI GENERAL MEDICAL PROBLEM - General Chief Complaint: Gastrointestinal Problem Stated Complaint: NOT EATING OR DRINKING Time Seen by Provider: 03/21/19 14:43 Source of Information: Reports: Patient History Limitations: Reports: No Limitations - History of Present Illness INITIAL COMMENTS - FREE TEXT/NARRATIVE: pt arrived with a history ofdark stools. He chronicly has diarrhea. He is on coumadin for atrial fib. He has not been eating and drinking as usual for the past 5 days,. He has not been vomiting. He does have multiple loose stools. He chronicly uses lactulose. Onset: Gradual, Other (last 5 days. ) Duration: Hour(s): Location: Reports: Abdomen Associated Symptoms: Reports: Weakness, Other (pt is having problems ambulating. He normally is up and about. ) Abdomen Pain Score (Numeric/FACES): 0 - Related Data Allergies Allergy/AdvReac Type Severity Reaction Status Date / Time Beta-Blockers Allergy Edema Verified 03/21/19 14:39 (Beta-Adrenergic Bloc furosemide [From Lasix] Allergy Edema Verified 03/21/19 14:39 lisinopril Allergy Edema Verified 03/21/19 14:39 NSAIDS (Non-Steroidal Allergy Other Verified 03/21/19 14:39 Anti-Inflamma Home Meds: Home Meds Insulin Glarg,Human.Rec.Analog [Lantus Solostar] 25 units SUBCUT DAILY 12/21/14 [History] Multivitamin with Minerals [Antioxidant Vitamin] 1 each PO DAILY 12/21/14 [ History] Tacrolimus 0.5 mg PO DAILY 12/21/14 [History] Triamcinolone Acetonide 1 film TP BID PRN 12/21/14 [History] Amylase/Lipase/Protease [Nevaeh COLLIER 24,000 Unit] 1 cap PO TID 11/29/17 [History] Cholecalciferol (Vitamin D3) [Vitamin D3] 400 unit PO DAILY 11/29/17 [History] Hydrophilic Cream [[place]] 60 gm TP DAILY PRN 11/29/17 [History] Insulin Aspart [Novolog Flexpen] 25 units SQ QIDACANDBED 11/29/17 [History] Lactulose 10 gm PO QID PRN 11/29/17 [History] Metoprolol Tartrate 12.5 mg PO BID 11/29/17 [History] Omeprazole 20 mg PO DAILY 11/29/17 [History] Torsemide 20 mg PO DAILY 11/29/17 [History] Warfarin [Coumadin] 2 mg PO DAILY 11/29/17 [History] Rifaximin [Xifaxan] 550 mg PO BID 12/24/17 [History] Lactulose 10 gm PO DAILY 04/17/18 [History] Insulin Lispro [Humalog] 15 unit SUBCUT TIDMEALS pen 04/18/18 [Rx] Lactulose [Chronulac] 15 gm PO DAILY cup 04/18/18 [Rx] Tacrolimus [Prograf] 0.5 mg PO QAM cap 04/18/18 [Rx] Insulin Glarg,Human.Rec.Analog [Lantus Solostar] 20 units SUBCUT BID 03/21/19 [ History] Past Medical History HEENT History: Reports: Cataract, Hard of Hearing, Impaired Vision Cardiovascular History: Reports: Afib, Hypertension Gastrointestinal History: Reports: Colon Polyp, GERD Genitourinary History: Reports: Prostate Disorder Musculoskeletal History: Reports: Arthritis, Fracture, Gout Other Musculoskeletal History: B knee pain. L hip bony contusion and ligamentous strain from trip/fall (03/10/2018). L lateral patellar fracture from fall (04/15/2018) Endocrine/Metabolic History: Reports: Diabetes, Type II, IDDM, Obesity/BMI 30+ Hematologic History: Reports: Anticoagulation Therapy, Blood Transfusion(s) Immunologic History: Reports: Solid Organ Transplant Other Immunologic History: Liver 1998 Oncologic (Cancer) History: Reports: Other (See Below) Other Oncologic History: skin Dermatologic History: Reports: Other (See Below) Other Dermatologic History: dry skin - Infectious Disease History Infectious Disease History: Reports: Chicken Pox, Measles, Mumps - Past Surgical History HEENT Surgical History: Reports: Cataract Surgery Cardiovascular Surgical History: Reports: None GI Surgical History: Reports: Cholecystectomy, Colonoscopy, EGD Male Surgical History: Reports: None Endocrine Surgical History: Reports: None Musculoskeletal Surgical History: Reports: Knee Replacement, Shoulder Surgery Other Musculoskeletal Surgeries/Procedures:: s/p RTKA (12/24/2017, Dr. Dheeraj John, [facility]) Oncologic Surgical History: Reports: None Dermatological Surgical History: Reports: Skin Biopsy Social & Family History - Caffeine Use Caffeine Use: Reports: None ED ROS GENERAL - Review of Systems Review Of Systems: See Below Constitutional: Reports: No Symptoms HEENT: Reports: No Symptoms Respiratory: Reports: No Symptoms Cardiovascular: Reports: No Symptoms Endocrine: Reports: No Symptoms GI/Abdominal: Reports: Decreased Appetite, Other ( stools are definitely black. ) : Reports: No Symptoms Musculoskeletal: Reports: No Symptoms Skin: Reports: No Symptoms ED EXAM, GI/ABD - Physical Exam Exam: See Below Text/Narrative:: pt arrived with a history of a poor intak for the past 4-5 days. His appetite is very poor. He has not been vomiting but his intake is poor. He is on coumadin joss atrial fib. Exam Limited By: No Limitations General Appearance: Alert, No Apparent Distress, Anxious, Other (pt is not having pain. ) Ears: Normal TMs Nose: Normal Inspection Throat/Mouth: Normal Inspection Head: Atraumatic Neck: Normal Inspection Respiratory/Chest: No Respiratory Distress Cardiovascular: Irregularly Irregular GI/Abdominal Exam: Soft, Non-Tender (Male) Exam: Deferred Rectal (Males) Exam: Black Stool, Other ( rectal exam reveals adark stool. which is a positive hemocult.) Back Exam: Normal Inspection Extremities: Normal Inspection Neurological: Alert, Oriented, Normal Cognition Course - Vital Signs Last Recorded V/S: Last Vital Signs Temp 35.8 C 03/21/19 14:42 Pulse 68 03/21/19 15:56 Resp 17 03/21/19 15:56 BP 149/60 H 03/21/19 15:56 Pulse Ox 100 03/21/19 15:56 - Orders/Labs/Meds Orders: Active Orders 24 hr Category Date Time Status Sodium Chloride 0.9% [Normal Saline] 1,000 ml Med 03/21/19 15:15 Active IV ASDIRECTED Medication Orders Sodium Chloride (Normal Saline) 1,000 mls @ 500 mls/hr IV ASDIRECTED JOEY Last Admin: 03/21/19 15:53 Dose: 500 mls/hr Labs: Laboratory Tests 03/21/19 03/21/19 03/21/19 Range/Units 14:23 14:45 14:45 WBC 11.4 H (4.5-11.0) K/uL RBC 3.70 L (4.30-5.90) M/uL Hgb 13.2 D (12.0-15.0) g/dL Hct 37.7 L (40.0-54.0) % MCV 102 H (80-98) fL MCH 36 H (27-31) pg MCHC 35 (32-36) % Plt Count 482 H (150-400) K/uL Neut % (Auto) 73 H (36-66) % Lymph % (Auto) 14 L (24-44) % [place] % (Auto) 13 H (2-6) % Eos % (Auto) 1 L (2-4) % Baso % (Auto) 0 (0-1) % PT (9.5-12.0) sec INR (0.80-1.20) APTT 99.3 H* (27.0-36.0) sec VBG pH (7.350-7.450) Sodium 138 L (140-148) mmol/L Potassium 4.7 (3.6-5.2) mmol/L Chloride 111 H (100-108) mmol/L Carbon Dioxide 12 L (21-32) mmol/L Anion Gap 19.7 H (5.0-14.0) mmol/L BUN 86 H* D (7-18) mg/dL Creatinine 5.7 H* (0.8-1.3) mg/dL Est Cr Clr Drug Dosing 11.38 mL/min Estimated GFR (MDRD) 10 L (>60) Glucose 132 H (74-106) mg/dL Calcium 9.7 (8.5-10.1) mg/dL Total Bilirubin 0.7 (0.2-1.0) mg/dL AST 23 (15-37) U/L ALT 29 D (12-78) U/L Alkaline Phosphatase 387 H (46-116) U/L Ammonia (11-32) mmol/L Total Protein 7.5 (6.4-8.2) g/dL Albumin 2.8 L (3.4-5.0) g/dL Globulin 4.7 H (2.3-3.5) g/dL Albumin/Globulin Ratio 0.6 L (1.2-2.2) Urine Color (YELLOW) Urine Appearance (CLEAR) Urine pH (5.0-8.0) Ur Specific Walker (1.008-1.030) Urine Protein (NEGATIVE) mg/dL Urine Glucose (UA) (NEGATIVE) mg/dL Urine Ketones (NEGATIVE) mg/dL Urine Occult Blood (NEGATIVE) Urine Nitrite (NEGATIVE) Urine Bilirubin (NEGATIVE) Urine Urobilinogen (0.2-1.0) EU/dL Ur Leukocyte Esterase (NEGATIVE) Urine RBC (0-5) Urine WBC (0-5) Ur Epithelial Cells Amorphous Sediment Urine Bacteria Urine Mucus Urine Other Urinalysis Comment 03/21/19 03/21/19 03/21/19 Range/Units 14:45 15:28 15:42 WBC (4.5-11.0) K/uL RBC (4.30-5.90) M/uL Hgb (12.0-15.0) g/dL Hct (40.0-54.0) % MCV (80-98) fL MCH (27-31) pg MCHC (32-36) % Plt Count (150-400) K/uL Neut % (Auto) (36-66) % Lymph % (Auto) (24-44) % [place] % (Auto) (2-6) % Eos % (Auto) (2-4) % Baso % (Auto) (0-1) % PT 100.0 H (9.5-12.0) sec INR (0.80-1.20) APTT (27.0-36.0) sec VBG pH 7.266 L (7.350-7.450) Sodium (140-148) mmol/L Potassium (3.6-5.2) mmol/L Chloride (100-108) mmol/L Carbon Dioxide (21-32) mmol/L Anion Gap (5.0-14.0) mmol/L BUN (7-18) mg/dL Creatinine (0.8-1.3) mg/dL Est Cr Clr Drug Dosing mL/min Estimated GFR (MDRD) (>60) Glucose (74-106) mg/dL Calcium (8.5-10.1) mg/dL Total Bilirubin (0.2-1.0) mg/dL AST (15-37) U/L ALT (12-78) U/L Alkaline Phosphatase (46-116) U/L Ammonia (11-32) mmol/L Total Protein (6.4-8.2) g/dL Albumin (3.4-5.0) g/dL Globulin (2.3-3.5) g/dL Albumin/Globulin Ratio (1.2-2.2) Urine Color Yellow (YELLOW) Urine Appearance Slightly cloudy A (CLEAR) Urine pH 5.5 (5.0-8.0) Ur Specific Walker >= 1.030 (1.008-1.030) Urine Protein 100 H (NEGATIVE) mg/dL Urine Glucose (UA) Negative (NEGATIVE) mg/dL Urine Ketones Negative (NEGATIVE) mg/dL Urine Occult Blood Large H (NEGATIVE) Urine Nitrite Negative (NEGATIVE) Urine Bilirubin Small H (NEGATIVE) Urine Urobilinogen 0.2 (0.2-1.0) EU/dL Ur Leukocyte Esterase Negative (NEGATIVE) Urine RBC 30-40 H (0-5) Urine WBC 10-20 H (0-5) Ur Epithelial Cells Rare Amorphous Sediment Not seen Urine Bacteria Moderate Urine Mucus Rare Urine Other Urinalysis Comment 03/21/19 Range/Units 15:59 WBC (4.5-11.0) K/uL RBC (4.30-5.90) M/uL Hgb (12.0-15.0) g/dL Hct (40.0-54.0) % MCV (80-98) fL MCH (27-31) pg MCHC (32-36) % Plt Count (150-400) K/uL Neut % (Auto) (36-66) % Lymph % (Auto) (24-44) % [place] % (Auto) (2-6) % Eos % (Auto) (2-4) % Baso % (Auto) (0-1) % PT (9.5-12.0) sec INR (0.80-1.20) APTT (27.0-36.0) sec VBG pH (7.350-7.450) Sodium (140-148) mmol/L Potassium (3.6-5.2) mmol/L Chloride (100-108) mmol/L Carbon Dioxide (21-32) mmol/L Anion Gap (5.0-14.0) mmol/L BUN (7-18) mg/dL Creatinine (0.8-1.3) mg/dL Est Cr Clr Drug Dosing mL/min Estimated GFR (MDRD) (>60) Glucose (74-106) mg/dL Calcium (8.5-10.1) mg/dL Total Bilirubin (0.2-1.0) mg/dL AST (15-37) U/L ALT (12-78) U/L Alkaline Phosphatase (46-116) U/L Ammonia 86 H (11-32) mmol/L Total Protein (6.4-8.2) g/dL Albumin (3.4-5.0) g/dL Globulin (2.3-3.5) g/dL Albumin/Globulin Ratio (1.2-2.2) Urine Color (YELLOW) Urine Appearance (CLEAR) Urine pH (5.0-8.0) Ur Specific Walker (1.008-1.030) Urine Protein (NEGATIVE) mg/dL Urine Glucose (UA) (NEGATIVE) mg/dL Urine Ketones (NEGATIVE) mg/dL Urine Occult Blood (NEGATIVE) Urine Nitrite (NEGATIVE) Urine Bilirubin (NEGATIVE) Urine Urobilinogen (0.2-1.0) EU/dL Ur Leukocyte Esterase (NEGATIVE) Urine RBC (0-5) Urine WBC (0-5) Ur Epithelial Cells Amorphous Sediment Urine Bacteria Urine Mucus Urine Other Urinalysis Comment Meds: Medications Generic Name Dose Route Start Last Admin Trade Name Freq PRN Reason Stop Dose Admin Sodium Chloride 1,000 mls @ 500 mls/hr 03/21/19 15:15 03/21/19 15:53 Normal Saline IV 500 mls/hr ASDIRECTED JOEY Administration Discontinued Medications Generic Name Dose Route Start Last Admin Trade Name Freq PRN Reason Stop Dose Admin Pantoprazole Sodium 40 mg 03/21/19 17:13 Protonix Iv IVPUSH 03/21/19 17:14 ONETIME ONE Phytonadione 5 mg 03/21/19 16:00 03/21/19 15:52 Aquamephyton IM 03/21/19 16:01 5 mg ONETIME ONE Administration - Re-Assessments/Exams Free Text/Narrative Re-Assessment/Exam: 03/21/19 15:35 pt was given vit k 5 mg because his protime is greater than 100. His creatnine is greater than 5 and he normally sits in the 3s. His stool is positive for blood. He has a venous ph of 7.2. 03/21/19 17:31 pt has a ptt of 99. Departure - Departure Time of Disposition: 17:31 Disposition: DC/Tfer to Acute Hospital 02 Condition: Fair Clinical Impression: GI bleeding, Duodenitis, Elevated protime, Elevated partial thromboplastin time (PTT), Liver transplant recipient, Metabolic acidosis, Renal insufficiency - Discharge Information Referrals: Gerry Champion Sr, MD [Primary Care Provider] - Forms: ED Department Discharge Care Plan Goals: transfer to [facility] run fluids at 250 cc, - My Orders Last 24 Hours: My Active Orders 03/21/19 15:15 Sodium Chloride 0.9% [Normal Saline] 1,000 ml IV ASDIRECTED - Assessment/Plan Last 24 Hours: My Active Orders 03/21/19 15:15 Sodium Chloride 0.9% [Normal Saline] 1,000 ml IV ASDIRECTED
[2019-03-21] MEDS ORDERED: Sodium Chloride 0.9% 1,000 ML IV SCH (15:15)
--- NOTE | 2019-03-21 16:11 | CRLCR ---
INDICATION: Shortness of breath TECHNIQUE: Chest radiograph 1 view COMPARISON: None FINDINGS: Mediastinum: The mediastinum is normal in appearance. The heart silhouette is normal in size and morphology. Severe calcifications of the mitral valve annulus are present. Lung: Both lungs are unremarkable in appearance. No sign of pleural effusion seen. No pneumothorax is identified. Bone and Soft tissue: Unremarkable for age. IMPRESSION: 1. Severe calcifications of the mitral valve annulus are present. This can be associated with coronary artery disease. Dictated by Eric Bauer MD @ 03/21/2019 4:08:40 PM Dictated by: Eric Bauer MD @ 03/21/2019 16:08:44 (Electronically Signed)
--- NOTE | 2019-03-21 17:00 | CRLCT ---
Indication: Elevated coags studies. Technique: Multiple contiguous axial images were obtained from the lung bases through the symphysis pubis without intravenous contrast enhancement. Please note that all CT scans at this facility use dose modulation, iterative reconstruction, and/or weight-based dosing when appropriate to reduce radiation dose to as low as reasonably achievable. Comparison: December 10, 2017. Findings: The lung bases are clear. The heart is normal in size. Coronary artery calcifications are identified. 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 The unenhanced liver, pancreas, adrenals, and kidneys are normal. Thickening of the wall of the duodenum is identified. Mild fat stranding is identified surrounding the duodenum. In the pelvis, calcifications are identified within the prostate gland. Questionable thickening of the wall the urinary bladder is identified but the bladder is incompletely distended. The small large bowel are normal in caliber. No free air free fluid is identified within the abdomen or pelvis. Soft tissue densities are identified within the anterior abdominal wall. This can be due to subcutaneous hematomas. Degenerative changes of the spine are identified. Impression: Thickening of the wall of the duodenum with mild surrounding fat stranding. This can be seen due to a duodenitis. Clinical follow up is recommended. Along the anterior abdominal wall, areas of high increased attenuation, which can be seen with subcutaneous hematomas. Please note that all CT scans at this facility use dose modulation, iterative reconstruction, and/or weight-based dosing when appropriate to reduce radiation dose to as low as reasonably achievable. Dictated by Noemi Enamorado MD @ Mar 21 2019 4:54PM Signed by Dr. Noemi Enamorado @ Mar 21 2019 4:57PM
[2019-03-21] MEDS ORDERED: Pantoprazole 40 MG Vial IVPUSH ONE (17:13)
[2019-03-21 19:34] VITALS: BP 158/67; PULSE 71
== END 2019-03-21 19:45 ==
LOC: JP.ED 14:08
DX: K29.81 Duodenitis with bleeding (principal); N28.9 Disorder of kidney and ureter, unspecified; R79.89 Other specified abnormal findings of blood chemistry; R79.1 Abnormal coagulation profile; K21.9 Gastro-esophageal reflux disease without esophagitis; I10 Essential (primary) hypertension; E66.9 Obesity, unspecified; E11.9 Type 2 diabetes mellitus without complications; Z94.4 Liver transplant status; Z79.899 Other long term (current) drug therapy; Z90.49 Acquired absence of other specified parts of digestive tract; Z79.4 Long term (current) use of insulin; Z88.6 Allergy status to analgesic agent; Z88.8 Allergy status to other drugs, medicaments and biological substances; Z68.30 Body mass index [BMI] 30.0-30.9, adult
CPT/HCPCS: 36415; 71045; 74176; 80053; 81001; 82140; 82272; 82800; 85025; 85610; 85730; 96361; 96372; 96374; 99285; C9113; J3430; J7030

== ENCOUNTER 2019-03-31 19:33 | Emergency (ER) | payer MEDICARE, OTHER ==
--- NOTE | 2019-03-31 21:02 | CRLCT ---
Indication: Left-sided weakness Technique: Nonenhanced axial CT imaging through the head. Coronal reconstructions are provided. Comparison: None Findings: There is a large right subdural hematoma, measuring up to 3.4 cm in maximal thickness. The hematoma demonstrates predominantly low density with multiple linear foci of increased density; this appearance can be seen with either hyperacute or acute on chronic timing. Mass effect the right cerebral hemisphere results in partial effacement of the right lateral ventricle and 6 mm of leftward midline shift. There is underline moderate brain volume loss. The suprasellar cistern remains patent, without evidence of uncal herniation. The posterior fossa is unremarkable. Intracranial atherosclerotic disease is noted. The calvarium is intact. The visualized paranasal sinuses and mastoid air cells are aerated. Impression: 1. Mixed density large right subdural hematoma, either of hyper acute or acute on chronic timing. Mass effect results in 6 mm of leftward midline shift. 2. No uncal herniation or cerebellar tonsillar herniation. 3. Moderate brain volume loss. Findings were verbally discussed with Dr. Mo at 8:55 p.m. Please note that all CT scans at this facility use dose modulation, iterative reconstruction, and/or weight-based dosing when appropriate to reduce radiation dose to as low as reasonably achievable. Dictated by Nanci Sparrow MD @ Mar 31 2019 8:46PM Signed by Dr. Nanci Sparrow @ Mar 31 2019 9:01PM
[2019-03-31 21:30] VITALS: BP 154/64; PULSE 64
--- NOTE | 2019-03-31 21:47 | EDM.PDOC ---
ED HPI GENERAL MEDICAL PROBLEM - General Chief Complaint: Neuro Symptoms/Deficits Stated Complaint: MEDICAL [facility]IA [facility] Time Seen by Provider: 03/31/19 19:44 Source of Information: Reports: Patient, EMS, Family History Limitations: Reports: No Limitations - History of Present Illness INITIAL COMMENTS - FREE TEXT/NARRATIVE: This patient arrived by EMS because of possible stroke symptoms. The patient was at home he was sitting on the toilet. EMS said he sort of slid off the toilet but his and daughter said that they just couldn't get him off the toilet that he he Seemed Weak. They Noted a Little Bit of Left-Sided Weakness. His Said That Yesterday He Fell but Did Not Hit His Head. Dr. Champion Was Thinking That He Had Hit His Head but the Family Denies This. Patient Was Discharged from the [facility] Yesterday in [place] after He Was Treated for a GI Bleed. He Does Have Atrial Fibrillation and Had an Elevated INR When He Had the Bleed. The Coumadin Was Stopped and Then It Was Restarted Either One or 2 Days Ago. He Hasn't Had Any Other Kind of Bleeding Problems. His Said That His Mental Status Today Has Been Pretty Much Normal. - Related Data Allergies Allergy/AdvReac Type Severity Reaction Status Date / Time Beta-Blockers Allergy Edema Verified 03/31/19 19:40 (Beta-Adrenergic Bloc furosemide [From Lasix] Allergy Edema Verified 03/31/19 19:40 lisinopril Allergy Edema Verified 03/31/19 19:40 NSAIDS (Non-Steroidal Allergy Other Verified 03/31/19 19:40 Anti-Inflamma Home Meds: Home Meds Multivitamin with Minerals [Antioxidant Vitamin] 1 each PO DAILY 12/21/14 [ History] Tacrolimus 0.5 mg PO DAILY 12/21/14 [History] Triamcinolone Acetonide 1 film TP BID PRN 12/21/14 [History] Amylase/Lipase/Protease [Nevaeh COLLIER 24,000 Unit] 1 cap PO TID 11/29/17 [History] Cholecalciferol (Vitamin D3) [Vitamin D3] 10,000 unit PO DAILY 11/29/17 [History ] Hydrophilic Cream [[place]] 60 gm TP DAILY PRN 11/29/17 [History] Insulin Aspart [Novolog Flexpen] 3 units SQ TIDMEALS 11/29/17 [History] Lactulose 10 gm PO QID PRN 11/29/17 [History] Metoprolol Tartrate 12.5 mg PO BID 11/29/17 [History] Omeprazole 20 mg PO BID 11/29/17 [History] Torsemide 20 mg PO DAILY 11/29/17 [History] Warfarin [Coumadin] 2 mg PO DAILY 11/29/17 [History] Rifaximin [Xifaxan] 550 mg PO BID 12/24/17 [History] Lactulose 2 tbsp PO TID 04/17/18 [History] Insulin Glarg,Human.Rec.Analog [Lantus Solostar] 20 units SUBCUT DAILY 03/21/19 [History] Allopurinol [Zyloprim] 100 mg PO Q48H 03/31/19 [History] Cholestyramine/Aspartame [Cholestyramine Light Powder] 1 packet PO BID 03/31/19 [History] Fluticasone Propionate [Flovent] 2 puff IH BID 03/31/19 [History] Folic Acid 1 mg PO DAILY 03/31/19 [History] Sodium Bicarbonate 2 tab PO BID 03/31/19 [History] Spironolactone [Aldactone] 12.5 mg PO BID 03/31/19 [History] Past Medical History HEENT History: Reports: Cataract, Hard of Hearing, Impaired Vision Cardiovascular History: Reports: Afib, Hypertension Gastrointestinal History: Reports: Colon Polyp, GERD, GI Bleed Genitourinary History: Reports: Chronic Renal Insuffiency, Prostate Disorder Musculoskeletal History: Reports: Arthritis, Fracture, Gout Other Musculoskeletal History: B knee pain. L hip bony contusion and ligamentous strain from trip/fall (03/10/2018). L lateral patellar fracture from fall (04/15/2018) Neurological History: Reports: TIA Psychiatric History: Reports: Dementia Endocrine/Metabolic History: Reports: Diabetes, Type II, IDDM, Obesity/BMI 30+ Hematologic History: Reports: Anticoagulation Therapy, Blood Transfusion(s), Folic Acid Immunologic History: Reports: Solid Organ Transplant Other Immunologic History: Liver 1998 Oncologic (Cancer) History: Reports: Other (See Below) Other Oncologic History: skin Dermatologic History: Reports: Other (See Below) Other Dermatologic History: dry skin - Infectious Disease History Infectious Disease History: Reports: Chicken Pox, Measles, Mumps - Past Surgical History Head Surgeries/Procedures: Reports: None HEENT Surgical History: Reports: Cataract Surgery Cardiovascular Surgical History: Reports: None GI Surgical History: Reports: Cholecystectomy, Colonoscopy, EGD Male Surgical History: Reports: None Endocrine Surgical History: Reports: None Neurological Surgical History: Reports: None Musculoskeletal Surgical History: Reports: Knee Replacement, Shoulder Surgery Other Musculoskeletal Surgeries/Procedures:: s/p RTKA (12/24/2017, Dr. Dheeraj John, [facility]) Oncologic Surgical History: Reports: None Dermatological Surgical History: Reports: Skin Biopsy Social & Family History - Tobacco Use Smoking Status *Q: Unknown Ever Smoked - Caffeine Use Caffeine Use: Reports: None ED ROS GENERAL - Review of Systems Review Of Systems: ROS reveals no pertinent complaints other than HPI. (Most of history is given by his and daughter) Constitutional: Reports: No Symptoms HEENT: Reports: No Symptoms Respiratory: Reports: No Symptoms Cardiovascular: Reports: No Symptoms Endocrine: Reports: No Symptoms GI/Abdominal: Reports: No Symptoms : Reports: No Symptoms Musculoskeletal: Reports: No Symptoms Skin: Reports: No Symptoms Neurological: Reports: Weakness Psychiatric: Reports: No Symptoms Hematologic/Lymphatic: Reports: No Symptoms ED EXAM, NEURO - Physical Exam Exam: See Below Exam Limited By: No Limitations General Appearance: Alert, WD/WN, No Apparent Distress (Does not appear to be in any kind of distress) Eye Exam: Bilateral Eye: EOMI, PERRL Ears: Normal External Exam Nose: Normal Inspection Throat/Mouth: Other (Possibly some very slight drooping of the left side of the mouth) Head Exam: Atraumatic Neck: Normal Inspection, Full Range of Motion Respiratory/Chest: Lungs Clear Cardiovascular: Irregularly Irregular GI/Abdominal: Non-Tender Neurological: Alert, Normal Mood/Affect, Other (Very slight weakness of the left arm he can lift both arms high over his head within the left arm seems to droop just a little bit. Cranial nerves appear grossly normal) Extremities: Normal Inspection Psychiatric: Normal Affect Skin Exam: Warm, Dry Course - Vital Signs Last Recorded V/S: Last Vital Signs Temp 36.3 C 03/31/19 21:29 Pulse 64 03/31/19 21:29 Resp 14 03/31/19 21:29 BP 154/64 H 03/31/19 21:29 Pulse Ox 96 03/31/19 21:29 - Orders/Labs/Meds Orders: Active Orders 24 hr Category Date Time Status EKG Documentation Completion [RC] ASDIRECTED Care 03/31/19 20:09 Active EKG 12 Lead [EK] Routine Ther 03/31/19 20:08 Ordered Labs: Laboratory Tests 03/31/19 03/31/19 03/31/19 Range/Units 20:23 20:23 20:45 WBC 13.3 H (4.5-11.0) K/uL RBC (4.30-5.90) M/uL Hgb (12.0-15.0) g/dL Hct (40.0-54.0) % MCV (80-98) fL MCH (27-31) pg MCHC (32-36) % Plt Count (150-400) K/uL Neut % (Auto) (36-66) % Lymph % (Auto) (24-44) % [place] % (Auto) (2-6) % Eos % (Auto) (2-4) % Baso % (Auto) (0-1) % PT 13.4 H (9.5-12.0) sec INR 1.26 H (0.80-1.20) Sodium 138 L (140-148) mmol/L Potassium 4.9 (3.6-5.2) mmol/L Chloride 107 (100-108) mmol/L Carbon Dioxide 22 (21-32) mmol/L Anion Gap 13.9 (5.0-14.0) mmol/L BUN 43 H (7-18) mg/dL Creatinine 3.4 H (0.8-1.3) mg/dL Est Cr Clr Drug Dosing 16.16 mL/min Estimated GFR (MDRD) 18 L (>60) Glucose 231 H (74-106) mg/dL Calcium 8.7 (8.5-10.1) mg/dL Total Bilirubin 0.6 (0.2-1.0) mg/dL AST 17 (15-37) U/L ALT 18 (12-78) U/L Alkaline Phosphatase 289 H (46-116) U/L Troponin I < 0.017 (0.000-0.056) ng/mL Total Protein 6.3 L (6.4-8.2) g/dL Albumin 2.4 L (3.4-5.0) g/dL Globulin 3.9 H (2.3-3.5) g/dL Albumin/Globulin Ratio 0.6 L (1.2-2.2) 03/31/19 Range/Units 21:04 WBC 13.5 H (4.5-11.0) K/uL RBC 2.77 L (4.30-5.90) M/uL Hgb 9.8 L D (12.0-15.0) g/dL Hct 30.4 L (40.0-54.0) % MCV 110 H (80-98) fL MCH 35 H (27-31) pg MCHC 32 (32-36) % Plt Count 353 (150-400) K/uL Neut % (Auto) 75 H (36-66) % Lymph % (Auto) 9 L (24-44) % [place] % (Auto) 15 H (2-6) % Eos % (Auto) 2 (2-4) % Baso % (Auto) 0 (0-1) % PT (9.5-12.0) sec INR (0.80-1.20) Sodium (140-148) mmol/L Potassium (3.6-5.2) mmol/L Chloride (100-108) mmol/L Carbon Dioxide (21-32) mmol/L Anion Gap (5.0-14.0) mmol/L BUN (7-18) mg/dL Creatinine (0.8-1.3) mg/dL Est Cr Clr Drug Dosing mL/min Estimated GFR (MDRD) (>60) Glucose (74-106) mg/dL Calcium (8.5-10.1) mg/dL Total Bilirubin (0.2-1.0) mg/dL AST (15-37) U/L ALT (12-78) U/L Alkaline Phosphatase (46-116) U/L Troponin I (0.000-0.056) ng/mL Total Protein (6.4-8.2) g/dL Albumin (3.4-5.0) g/dL Globulin (2.3-3.5) g/dL Albumin/Globulin Ratio (1.2-2.2) - Radiology Interpretation Free Text/Narrative:: CT scan shows a large hematoma on the right either hyperacute subdural or acute on chronic. A mass effect with a 6 mm midline shift to the left. There is no uncal herniation. - Re-Assessments/Exams Free Text/Narrative Re-Assessment/Exam: 03/31/19 21:54 Based on the patient's history as well as physical findings and CT findings I don't think that it would be appropriate to send this gentleman by air. We will send him by ground instead. 03/31/19 21:58 the decision was made to give him tranexamic acid as well as vitamin K however he has already left the emergency department. The 03/31/19 21:58 Previously I spoke with Dr. Estrella at [facility] currently don't have neurosurgery services so I contacted [facility] spoke with Dr. Pat who accepted the patient in transfer Departure - Departure Time of Disposition: 21:59 Disposition: DC/Tfer to Acute Hospital 02 Condition: Serious Clinical Impression: Cerebral hemorrhage - Discharge Information Referrals: PCP,None [Primary Care Provider] - Forms: ED Department Discharge - My Orders Last 24 Hours: My Active Orders 03/31/19 20:08 EKG 12 Lead [EK] Routine 03/31/19 20:09 EKG Documentation Completion [RC] ASDIRECTED - Assessment/Plan Last 24 Hours: My Active Orders 03/31/19 20:08 EKG 12 Lead [EK] Routine 03/31/19 20:09 EKG Documentation Completion [RC] ASDIRECTED
== END 2019-03-31 21:50 ==
LOC: JP.ED 19:33
DX: I61.9 Nontraumatic intracerebral hemorrhage, unspecified (principal); I48.91 Unspecified atrial fibrillation; I13.10 Hypertensive heart and chronic kidney disease without heart failure, with stage 1 through stage 4 chronic kidney disease, or unspecified chronic kidney disease; E11.22 Type 2 diabetes mellitus with diabetic chronic kidney disease; N18.9 Chronic kidney disease, unspecified; K21.9 Gastro-esophageal reflux disease without esophagitis; M10.9 Gout, unspecified; F03.90 Unspecified dementia, unspecified severity, without behavioral disturbance, psychotic disturbance, mood disturbance, and anxiety; E66.9 Obesity, unspecified; Z68.32 Body mass index [BMI] 32.0-32.9, adult; Z88.8 Allergy status to other drugs, medicaments and biological substances; Z79.4 Long term (current) use of insulin; Z79.01 Long term (current) use of anticoagulants; Z79.899 Other long term (current) drug therapy
CPT/HCPCS: 36415; 70450; 80053; 84484; 85025; 85048; 85610; 93005; 93010; 99285; 99285-25